=== PATIENT | female | born 1960 | race Two or more races ===

== ENCOUNTER → 2020-11-20 09:36 | Outpatient (REF) | payer OTHER, MEDICAID, SELFPAY ==
--- NOTE | 2020-11-20 09:39 | CA_ITS ---
Acquisition Time: 2020-11-20 09:51:51 Total Exercise Time: 00:07:27 Test Indications: CP Medications: SEE CHART Protocol: SHANTE Max HR: 139 BPM 86% of Pred: 160 BPM Max BP: 132/078 mmHG Max Work Load: 9.2 METS Exercise stress test using Shante protocol, total of 7 min 27 sec, METS 9.20 and TAPHR up to 86 %. Pt tolerated well, denies any anginal sx. EKG with no arrhythias, no ichemic changes seen during exercise or in recovery. Normotensive response to exercise. Referred By: Chris Huff Overread By: Alexandra Avila MANAGER RESPIRATORY CARE
[2020-11-20 12:06] LABS: MANUAL DIFF FLAG NO
[2020-11-20 12:14] LABS: Basophils Percent Auto 0.4 % (0-2); Eosinophils Absolute Auto 0.2 X10*3/uL (0.0-0.4); Eosinophils Percent Auto 3.4 % (0-4); Hematocrit 40.1 % (37-47); Hemoglobin 13.2 g/dl (12.0-16.0); Imm Gran Abs Auto 0.04 X10*3/uL (0.00-0.03); Imm Gran Pct Auto 0.9 % (0.0-0.4); Lymphocytes Absolute Auto 1.6 X10*3/uL (1.2-4.9); Lymphocytes Percent Auto 33.5 % (20-40); Mean Corpuscular HGB Conc 32.9 g/dl (31.0-35.0); Mean Corpuscular Hemoglobin 31.1 pg (27.0-33.0); Mean Corpuscular Volume 94.6 fL (80-98); Monocytes Absolute Auto 0.3 X10*3/uL (0.1-1.2); Monocytes Percent Auto 5.6 % (2-11); Neutrophils Absolute Auto 2.6 X10*3/uL (2.0-8.3); Neutrophils Percent Auto 56.2 % (45-73); Platelet Count 248 X10*3/uL (160-400); Red Blood Count 4.24 X10*6/uL (4.20-5.50); White Blood Count 4.7 X10*3/uL (4.8-10.8)
[2020-11-20 12:17] LABS: Prothrombin Time 11.4 SEC (10.8-13.0)
[2020-11-20 12:19] LABS: Partial Thromboplastin Time 32.1 SEC (24.1-38.0)
[2020-11-20 12:56] LABS: Troponin-I High Sensitivity < 3.5 ng/L (<3.5-17.0)
[2020-11-20 13:11] LABS: Glucose Urine UA NEG (NEG); Leukocyte Esterase Urine NEG (NEG); Nitrite Urine NEG (NEG); Specific Gravity - Urine >= 1.030 (1.005-1.025); Urine Blood NEG (NEG); Urine Ketones NEG (NEG); Urine Protein NEG (NEG-TRACE)
[2020-11-20 13:12] LABS: Appearance Urine HAZY; Color Urine YELLOW
[2020-11-20 13:14] LABS: Erythrocyte Sedimentation Rate 7 MM/HR (0-20)
[2020-11-20 13:16] LABS: Alanine Aminotransferase 29 U/L (0-31); Albumin Level 4.6 g/dL (3.5-5.0); Alkaline Phosphatase 49 U/L (39-117); Anion Gap 11 (12-20); Aspartate Amino Transferase 20 U/L (5-31); Bilirubin Direct < 0.2 mg/dL (0.0-0.5); Bilirubin Total 0.4 mg/dL (0.0-1.0); Blood Urea Nitrogen 16 mg/dL (9-16); C Reactive Protein 0.18 mg/dL (< or = 0.50); Calcium 9.4 mg/dL (8.4-10.2); Carbon Dioxide 27 mmol/L (22-29); Chloride 106 mmol/L (96-108); Cholesterol 191 mg/dL; Estimated Glomerular Filt Rate > 60; Glucose Fasting 90 mg/dL (60-99); HDL Cholesterol 48 mg/dL; LDL Cholesterol Calculated 117 mg/dl; Potassium 4.2 mmol/L (3.3-5.1); Sodium 140 mmol/L (135-145); Triglycerides 134 mg/dL
[2020-11-20 13:17] LABS: TSH reflex Free T4 1.61 uIU/mL (0.32-4.0)
[2020-11-21 13:36] LABS: Mumps Virus IgG Antibody >300.00 AU/mL; Rubella IgG Antibody 2.59 Index; Rubeola IgG (Measles) >300.00 AU/mL
[2020-11-23 16:27] LABS: TS Negative Control Passed; TS Panel A 0; TS Panel B 0; TS Positive Control Passed; TSpotTB Negative (SeeBelow)
== END ==
LOC: HO.CARD 09:36
PROVIDERS: Visit Provider Internal Medicine
DX: Z11.1 Encounter for screening for respiratory tuberculosis (principal); R07.9 Chest pain, unspecified; H11.32 Conjunctival hemorrhage, left eye; Z28.3 Underimmunization status
CPT/HCPCS: 36415; 80053; 80061; 80076; 81003; 82248; 84443; 84484; 85025; 85610; 85652; 85730; 86140; 86481; 86735; 86762; 86765; 93016; 93017; 93018

== ENCOUNTER 2021-04-23 11:37 | Day surgery (SDC) | payer OTHER, SELFPAY ==
--- NOTE | 2021-04-22 09:37 | HO.ANESPROP2 ---
Documented by User: Aniyah Porter NP 04/22/21 11:59 HPI - Anesthesia Eval Consult details Narrative: 60yo F for?Upper Endoscopy and Colonoscopy PMFSH Active Problems Active Problems: All Active Problems (Updated 11/17/20 @ 02:57 by Chris Huff MD) Anxiety and depression (Acute) Incomplete immunization status (Acute) Tuberculosis screening (Acute) Depression (Acute) Chest pain (Acute) Conjunctival hemorrhage of left eye (Acute) Insomnia (Acute) Chronic left ear pain (Acute) Allergic rhinitis (Acute) Cervical cancer screening (Acute) Left ear pain (Acute) Dizziness (Acute) Past Medical History Medical History ADD (attention deficit disorder) Allergic rhinitis Anxiety and depression Asthma Chest pain Chronic left ear pain Depression DJD (degenerative joint disease) GERD (gastroesophageal reflux disease) Evelyn's thyroiditis Incomplete immunization status Insomnia Iron (Fe) deficiency anemia Osteoporosis Tuberculosis screening Family History Family History Father Lung cancer Mother No problems noted. Sister No problems noted. Son No problems noted. Brother No problems noted. Surgical History Surgical History H/O abdominoplasty H/O breast augmentation History of laparoscopic cholecystectomy History of right breast biopsy History of surgery Hx of colonoscopy Hx of esophagogastroduodenoscopy Social History Social History Alcohol intake: never Patient Tobacco Use Status: Never used Tobacco Are you DNR?: No Advance Directives: No Advance Directives Information Provided: No Recently lost weight without trying: No Nutrition Risks: No Nutritional Risk Meds Allergies Allergy/AdvReac Type Severity Reaction Status Date / Time codeine Allergy Unknown Unknown Verified 11/16/20 15:09 penicillin V Allergy Unknown hives Verified 11/16/20 15:09 Sulfa (Sulfonamide Allergy Unknown hives Verified 11/16/20 15:09 Antibiotics) (Sulfa), hives sulfacetamide Allergy Unknown Hives Verified 11/16/20 15:09 [From Sulfacet-R] sulfur [From Sulfacet-R] Allergy Unknown Hives Verified 11/16/20 15:09 frutose, galatose, synthetic Allergy Unknown nausea and Uncoded 11/16/20 15:09 s vomiting Home Medications Medication Instructions Recorded Confirmed Last Taken Type diazepam 5 mg tablet 5 mg PO BEDTIME PRN 07/21/20 08/21/20 Unknown History fluoride (sodium) 1.1 % dental appl PO BID 07/21/20 08/21/20 Unknown History cream levalbuterol tartrate 45 1 puff INHALATION Q4H PRN 07/21/20 08/21/20 Unknown History mcg/actuation aerosol inhaler levothyroxine 50 mcg tablet 50 mcg PO QAM 07/21/20 08/21/20 Unknown History dicyclomine 20 mg tablet 20 mg PO ONCE tab 08/21/20 08/21/20 Unknown History fexofenadine 180 mg tablet 180 mg PO DAILY 08/21/20 08/21/20 Unknown History (Lynne Allergy) pantoprazole 40 mg tablet,delayed 40 mg PO DAILY 08/21/20 08/21/20 Unknown History release triamcinolone acetonide 0.1 % TOPICAL BID 08/21/20 08/21/20 Unknown History topical ointment levocetirizine 5 mg tablet 5 mg PO DAILY 11/16/20 11/16/20 Unknown History Exam Exam Date and Time: April 22, 2021 0937 Pertinent Lab Results Pertinent Lab Results: Laboratory Tests 11/20/20 11/20/20 11:25 11:25 WBC 4.7 L Hgb 13.2 Hct 40.1 Plt Count 248 Sodium 140 Potassium 4.2 Chloride 106 Carbon Dioxide 27 BUN 16 Creatinine 0.76 Narrative Narrative: Exercise Stress 10/2020 Protocol: SAEID ? Max HR: 139 BPM? 86% of? Pred: 160 BPM Max BP: 132/078 mmHG Max Work Load: 9.2 METS ? Exercise stress test using Saeid protocol, total of 7 min 27 sec, METS 9.20 and ?TAPHR up to 86 %.? Pt tolerated well, denies any anginal sx.? EKG with no ?arrhythias,? no ichemic changes seen during exercise or in recovery. ?Normotensive response to exercise.? ? Assessment and Plan Assessment Anesthesia Assessment: Chart Reviewed Documented by User: Donya Bean MD 04/23/21 13:27 [facility] Active Problems Active Problems: All Active Problems (Updated 11/17/20 @ 02:57 by Chris Huff MD) Anxiety and depression (Acute) Incomplete immunization status (Acute) Tuberculosis screening (Acute) Depression (Acute) Chest pain (Acute) Conjunctival hemorrhage of left eye (Acute) Insomnia (Acute) Chronic left ear pain (Acute) Allergic rhinitis (Acute) Cervical cancer screening (Acute) Left ear pain (Acute) Dizziness (Acute) C/o headache- coffee drinker, probably dehydrated. Will rehydrate, observe in PACU Past Medical History Medical History ADD (attention deficit disorder) Allergic rhinitis Anxiety and depression Asthma Chest pain Chronic left ear pain Depression DJD (degenerative joint disease) GERD (gastroesophageal reflux disease) Evelyn's thyroiditis Incomplete immunization status Insomnia Iron (Fe) deficiency anemia Osteoporosis Tuberculosis screening Family History Family History Father Lung cancer Mother No problems noted. Sister No problems noted. Son No problems noted. Brother No problems noted. Family history of problems with anesthesia: No Surgical History Surgical History H/O abdominoplasty H/O breast augmentation History of laparoscopic cholecystectomy History of right breast biopsy History of surgery Hx of colonoscopy Hx of esophagogastroduodenoscopy History of Problems with Anesthesia: No Social History Social History Alcohol intake: never Patient Tobacco Use Status: Never used Tobacco Are you DNR?: No Advance Directives: No Advance Directives Information Provided: No Recently lost weight without trying: No Nutrition Risks: No Nutritional Risk Meds Allergies Allergy/AdvReac Type Severity Reaction Status Date / Time codeine Allergy Unknown Unknown Verified 11/16/20 15:09 penicillin V Allergy Unknown hives Verified 11/16/20 15:09 Sulfa (Sulfonamide Allergy Unknown hives Verified 11/16/20 15:09 Antibiotics) (Sulfa), hives sulfacetamide Allergy Unknown Hives Verified 11/16/20 15:09 [From Sulfacet-R] sulfur [From Sulfacet-R] Allergy Unknown Hives Verified 11/16/20 15:09 frutose, galatose, synthetic Allergy Unknown nausea and Uncoded 11/16/20 15:09 s vomiting Home Medications Medication Instructions Recorded Confirmed Last Taken Type diazepam 5 mg tablet 5 mg PO BEDTIME PRN 07/21/20 08/21/20 Unknown History fluoride (sodium) 1.1 % dental appl PO BID 07/21/20 08/21/20 Unknown History cream levalbuterol tartrate 45 1 puff INHALATION Q4H PRN 07/21/20 08/21/20 Unknown History mcg/actuation aerosol inhaler levothyroxine 50 mcg tablet 50 mcg PO QAM 07/21/20 08/21/20 Unknown History dicyclomine 20 mg tablet 20 mg PO ONCE tab 08/21/20 08/21/20 Unknown History fexofenadine 180 mg tablet 180 mg PO DAILY 08/21/20 08/21/20 Unknown History (Lynne Allergy) pantoprazole 40 mg tablet,delayed 40 mg PO DAILY 08/21/20 08/21/20 Unknown History release triamcinolone acetonide 0.1 % TOPICAL BID 08/21/20 08/21/20 Unknown History topical ointment levocetirizine 5 mg tablet 5 mg PO DAILY 11/16/20 11/16/20 Unknown History Exam Height,Weight and Vital Signs: Height 5 ft 3 in Weight 63.63 kg Vital Signs Temp Pulse Resp BP Pulse Ox 04/23/21 12:18 98.6 F 81 18 109/64 96 Airway Mallampati Class: III (Small mouth opening) TM Dist: >3cm Neck ROM: Full Loose/Missing/Broken Teeth: No Heart: RRR Lungs: CTAB Assessment and Plan Assessment Anesthesia Assessment: Anesthesia Plan Discussed Final Anesthetic Review Family History of Problems with Anesthesia: No History of Problems with Anesthesia: No NPO: Yes ASA Class: II Final Preanesthetic Review: No Changes in Pt Med Stat, Meds/Allgs Chart Reviewed, Consent Obtained/Reviewed and Anes Risks/Benef Reviewed Patient Risk: Low Procedure Risk: Low Assessment/Block/Sedation in SS: Assess/Block/Sedation-SS Anesthetic Plan Anesthetic Plan: MAC: Disposition: Standard PACU
[2021-04-23 12:18] VITALS: BP 109/64; PULSE 81; RESP 18; TEMP 37; O2SAT 96; BMI 24.8
[2021-04-23] MEDS: Lactated Ringers 1,000 ML 100 ML IVCONT (12:26)
--- NOTE | 2021-04-23 12:41 | MHC.SHP ---
Pre-Procedural Eval Section A Date of Service: 04/23/21 The patient is an INPATIENT: No Changes since office visit: No Cold of Flu in the past 2 weeks, No New Medical Problems, No Changes in Medication and No Patient answered all questions The History & Physical has been completed within 30 days and I have reviewed it.: Yes Section B Chief Complaint: reflux disease,screening,constipation Allergies: Allergies Allergy/AdvReac Type Severity Reaction Status Date / Time codeine Allergy Unknown Unknown Verified 11/16/20 15:09 penicillin V Allergy Unknown hives Verified 11/16/20 15:09 Sulfa (Sulfonamide Allergy Unknown hives Verified 11/16/20 15:09 Antibiotics) (Sulfa), hives sulfacetamide Allergy Unknown Hives Verified 11/16/20 15:09 [From Sulfacet-R] sulfur [From Sulfacet-R] Allergy Unknown Hives Verified 11/16/20 15:09 frutose, galatose, synthetic Allergy Unknown nausea and Uncoded 11/16/20 15:09 s vomiting Plan I have reviewed the history and physical and performed a pertinent physical examination on my patient. No changes have occurred unless specified.
--- NOTE | 2021-04-23 13:20 | P.BOP_ITS ---
Brief Operative Note Date of Service: 04/23/21 Pre-op diagnosis: gerd,screening Post-op diagnosis: same Procedure: egd,colon Surgeon: Troy Francis Anesthesia: MAC Was an Platform Software Engineer used for this Procedure?: No Estimated blood loss (mL): 5 Pathology: other (see nurse notes) Condition: stable Disposition: PACU
[2021-04-23 13:22] VITALS: BP 84/49; PULSE 66; RESP 20; TEMP 36.3; O2SAT 98
[2021-04-23 13:40] VITALS: BP 126/78; PULSE 70; RESP 16; TEMP 36.3; O2SAT 96
--- NOTE | 2021-04-23 13:40 | OP_ITS ---
SURGEON: Troy Francis MD INDICATIONS: Gastroesophageal reflux disease, constipation, and colon cancer screening. PREOPERATIVE DIAGNOSIS: POSTOPERATIVE DIAGNOSIS: PROCEDURE PERFORMED: Upper endoscopy with biopsy, colonoscopy to the terminal ileum with biopsy. ESTIMATED BLOOD LOSS: COMPLICATIONS: ANESTHESIA: ASSISTANTS: SPECIMENS: MEDICATIONS: Monitored anesthesia care. DESCRIPTION OF PROCEDURE: History and physical performed. The risks and benefits of the procedure were explained to the patient. Informed consent was obtained. The patient was placed in the left lateral decubitus position. A digital rectal exam was performed prior to the colonoscopy was normal. The Olympus video gastroscope was introduced into the esophagus, stomach, and duodenum. Examination was performed and the scope was removed. She was repositioned for colonoscopy. Digital rectal exam was performed and was found to be normal. The Olympus pediatric video colonoscope was introduced into the rectum and advanced to the cecum without difficulty. The cecum was identified by transillumination, palpation, and identification of the ileocecal valve. Examination was performed and the scope was removed. She tolerated both procedures well and was taken to recovery area in stable condition. FINDINGS: UPPER ENDOSCOPY: Esophagus: The esophagus was normal. Stomach: The stomach was normal. Duodenum: The bulb and second portion were normal. Biopsies were obtained from the EG junction, antrum, and duodenum. COLONOSCOPY: The terminal ileum was normal. Visualized colonic mucosa was normal. The quality of the prep was good. In the cecum, was a less than 5 mm sessile polyp, which was removed with biopsy forceps. Biopsies were obtained from the terminal ileum and sigmoid. Retroflexed examination showed small internal hemorrhoids. IMPRESSION: 1. Normal upper endoscopy. 2. Colon polyp. RECOMMENDATION: Follow up the biopsy results. MD CASPER Gonzalez/POLA / [id number]
[2021-04-23] MEDS: Acetaminophen 325 MG TABLET 650 MG PO (13:57)
== END 2021-04-23 14:21 | disposition home or self-care (01) ==
PROVIDERS: PCP Nurse Practitioner Family; Visit Provider Internal Medicine Gastroenterology
PROC: (CPT 45380; principal; 2021-04-23 12:40)
DX: Z12.11 Encounter for screening for malignant neoplasm of colon (principal); D12.0 Benign neoplasm of cecum; K59.00 Constipation, unspecified; K64.8 Other hemorrhoids; K21.9 Gastro-esophageal reflux disease without esophagitis; J45.909 Unspecified asthma, uncomplicated; D50.9 Iron deficiency anemia, unspecified; E06.3 Autoimmune thyroiditis; M81.0 Age-related osteoporosis without current pathological fracture; M50.30 Other cervical disc degeneration, unspecified cervical region; Z79.899 Other long term (current) drug therapy; Z88.0 Allergy status to penicillin; Z88.2 Allergy status to sulfonamides
CPT/HCPCS: 45380; 43239; 88305; 88342

== ENCOUNTER 2021-06-15 17:53 | Outpatient (REF) | payer OTHER, SELFPAY ==
[2021-06-15 17:59] LABS: Appearance Urine CLEAR; Color Urine YELLOW; Glucose Urine UA NEG (NEG); Leukocyte Esterase Urine NEG (NEG); Nitrite Urine NEG (NEG); PH 5.5 (5.0-8.0); Urine Blood NEG (NEG); Urine Ketones NEG (NEG); Urine Protein NEG (NEG-TRACE)
== END 2021-06-15 17:54 | disposition home or self-care (01) ==
LOC: HO.LNP 17:53
PROVIDERS: Visit Provider Nurse Practitioner Acute Care
DX: R35.0 Frequency of micturition (principal)
CPT/HCPCS: 81003

== ENCOUNTER 2022-03-28 17:04 | Outpatient (REF) | payer BC, OTHER, SELFPAY ==
--- NOTE | ~2022-03-28 | XR_ITS ---
EXAMINATION: XR CERVICAL SPINE CLINICAL INFORMATION: Pain COMPARISON: Previous x-ray May 2012 TECHNIQUE: 3 views of the cervical spine were obtained. FINDINGS: There is mild curvature of the lower cervical and upper thoracic spine to the left. Bone alignment is otherwise normal. No fracture or dislocation is seen. There is degenerative spondylosis and degenerative disc disease at C6-C7. Prevertebral soft tissues are normal. XR/XR cervical spine 3V IMPRESSION: Degenerative changes at C6-C7.
--- NOTE | ~2022-03-28 | XR_ITS ---
EXAMINATION: XR LUMBOSACRAL SPINE CLINICAL INFORMATION: Pain COMPARISON: Previous exam from 2013 TECHNIQUE: Three views of the lumbosacral spine. FINDINGS: Bone alignment is normal. No fracture or dislocation is seen. There is disc space narrowing at L5-S1. There is lower lumbar spine facet arthritis. XR/XR lumbar spine 2-3V IMPRESSION: Degenerative disc disease at L5-S1 and lower lumbar spine facet arthritis.
--- NOTE | ~2022-03-28 | XR_ITS ---
EXAMINATION: XR KNEE, LEFT CLINICAL INFORMATION: Pain COMPARISON: None TECHNIQUE: Four views of the left knee. FINDINGS: Bones and soft tissues are normal. No fracture or joint effusion. Alignment is anatomic. Joint spaces are well maintained. No abnormal soft tissue calcification. XR/XR knee LT 3V IMPRESSION: Normal left knee.
[2022-03-28 17:16] LABS: MANUAL DIFF FLAG NO
[2022-03-28 17:41] LABS: Basophils Percent Auto 0.4 % (0-2); Eosinophils Percent Auto 0.8 % (0-4); Hemoglobin 13.3 g/dl (12.0-16.0); Imm Gran Abs Auto 0.03 X10*3/uL (0.00-0.03); Imm Gran Pct Auto 0.6 % (0.0-0.4); Lymphocytes Absolute Auto 1.8 X10*3/uL (1.2-4.9); Lymphocytes Percent Auto 35.2 % (20-40); Mean Corpuscular HGB Conc 33.3 g/dl (31.0-35.0); Mean Corpuscular Hemoglobin 31.4 pg (27.0-33.0); Mean Corpuscular Volume 94.3 fL (80.0-98.0); Mean Platelet Volume 9.8 fL (9.4-12.3); Monocytes Absolute Auto 0.3 X10*3/uL (0.1-1.2); Monocytes Percent Auto 6.3 % (2-11); Neutrophils Absolute Auto 2.9 x10*3/uL (2.0-8.3); Neutrophils Percent Auto 56.7 % (45-73); Platelet Count 307 X10*3/uL (160-400); Red Blood Count 4.24 X10*6/uL (4.20-5.50); Red Cell Distribution Width 12.1 % (11.0-16.0); White Blood Count 5.1 X10*3/uL (4.8-10.8)
[2022-03-28 18:05] LABS: C Reactive Protein 0.15 mg/dL (< or = 0.50); Estimated Glomerular Filt Rate > 60
[2022-03-28 18:14] LABS: Rheumatoid Factor 62.3 IU/mL (<15.0)
[2022-03-28 18:29] LABS: Erythrocyte Sedimentation Rate 11 MM/HR (0-20)
[2022-03-30 18:21] LABS: Anti Nuclear Antibody Screen NEGATIVE (NEGATIVE)
== END 2022-03-28 17:05 | disposition home or self-care (01) ==
LOC: HO.LAB 17:04
PROVIDERS: PCP Internal Medicine; Visit Provider Internal Medicine Rheumatology
DX: M79.7 Fibromyalgia (principal); M79.606 Pain in leg, unspecified; G43.909 Migraine, unspecified, not intractable, without status migrainosus; Z79.899 Other long term (current) drug therapy
CPT/HCPCS: 36415; 72040; 72100; 73562; 82565; 85025; 85652; 86038; 86039; 86140; 86431; 99202

== ENCOUNTER → 2022-08-24 09:52 | Outpatient (BNVA) | payer BC, OTHER, SELFPAY | PROVIDERS: PCP Internal Medicine; Visit Provider Internal Medicine Rheumatology | DX: R76.8 Other specified abnormal immunological findings in serum (principal); M47.812 Spondylosis without myelopathy or radiculopathy, cervical region; M47.816 Spondylosis without myelopathy or radiculopathy, lumbar region; M79.7 Fibromyalgia | CPT/HCPCS: 99212 ==

== ENCOUNTER 2022-09-15 11:28 | Outpatient (REF) | payer MEDICAID, SELFPAY ==
--- NOTE | 2022-09-15 11:30 | EMG_ITS ---
Bilateral tibial and peroneal motor studies were performed. Bilateral superficial peroneal and sural sensory studies were performed. Tibial H reflexes were obtained and paraspinal muscles were tested with a needle. IMPRESSION: Mild to moderate sensory peripheral neuropathy. Motor nerves were intact. MD KELVIN Madden/POLA / [id number]
== END 2022-09-15 11:29 | disposition home or self-care (01) ==
LOC: HO.NEURO 11:28
PROVIDERS: PCP Internal Medicine; Visit Provider Internal Medicine
DX: R20.8 Other disturbances of skin sensation (principal)
CPT/HCPCS: 95886; 95913

== ENCOUNTER 2022-10-19 15:30 | Outpatient (REF) | payer BC, OTHER, SELFPAY ==
[2022-10-21 16:49] LABS: TS Negative Control Passed; TS Panel A 0; TS Panel B 0; TS Positive Control Passed; TSpotTB Negative (Negative)
== END 2022-10-19 15:31 | disposition home or self-care (01) ==
LOC: HO.LAB 15:30
PROVIDERS: PCP Internal Medicine; Visit Provider Internal Medicine
DX: Z11.1 Encounter for screening for respiratory tuberculosis (principal)
CPT/HCPCS: 36415; 86481

== ENCOUNTER 2023-03-01 14:19 | Outpatient (AMB) | payer BC, MEDICAID, SELFPAY ==
[2023-03-01 14:27] VITALS: BP 122/84; PULSE 75; O2SAT 96; BMI 26.7
--- NOTE | 2023-03-01 14:27 | MHC.PC.OV ---
Vital Signs 03/01/23 14:27 Height 5 ft 2 in Weight 146 lb 4 oz BMI 26.7 BP 122/84 Blood Pressure Location Lt brachial Position Sitting Pulse 75 Pulse Source Pulse Oximeter Pulse Oximetry (%) 96 Oxygen Delivery Method Room Air Intake Visit Reasons: Brittany Costello, Back pain Varnish Filterer Required: No Accompanied by: Self / Same As Patient Allergies codeine Allergy (Unknown, Verified 03/01/23 15:28) Unknown Sulfa (Sulfonamide Antibiotics) Allergy (Unknown, Verified 03/01/23 15:28) hives (Sulfa), hives sulfacetamide [From Sulfacet-R] Allergy (Unknown, Verified 03/01/23 15:28) Hives sulfur [From Sulfacet-R] Allergy (Unknown, Verified 03/01/23 15:28) Hives frutose, galatose, synthetic s Allergy (Unknown, Uncoded 03/01/23 15:28) nausea and vomiting Medication List - Last Reconciled 03/01/23 by MD Kristal Whittington Autoinjector (fremanezumab-vfrm) 225 mg (1.5 mL) subcut .Once a month 3 months NS albuterol sulfate 90 mcg/actuation (ProAir HFA) 1 inh inhalation .Q 4 hours PRN beclomethasone dipropionate 80 mcg/actuation (QNASL) 2 sprays intranasal DAILY PRN 30 days beclomethasone dipropionate 80 mcg/actuation (Qvar RediHaler) 1 inh inhalation BID buspirone 5 mg PO BID 30 days Concerta ER (methylphenidate HCl) 36 mg PO QAM 30 days NS epinephrine IM fenofibrate nanocrystallized 48 mg PO DAILY 90 days fexofenadine ([facility]ne [facility]) 180 mg PO DAILY fluconazole 150 mg PO QWEEK 90 days fluocinolone-hydroq.-tretinoin 0.01-4-0.05 % (Tri-Elizabeth) 1 appl topical .QD fluoride (sodium) 1.1% appl PO BID glycopyrronium tosylate 2.4% (Qbrexza) 1 appl topical DAILY 30 days ibuprofen 800 mg PO DAILY PRN ketoconazole 2% 1 appl topical 2XW PRN levothyroxine 75 mcg PO DAILY linaclotide (Linzess) 290 mcg PO DAILY lorazepam 1 mg PO BEDTIME PRN 30 days pantoprazole 40 mg PO BID PRN pregabalin 50 mg PO BID 30 days riboflavin (vitamin B2) 100 mg PO DAILY 90 days simethicone (Gas Relief (simethicone)) 125 mg PO TID-QID PRN trazodone 300 mg (3 x 100 mg) PO BEDTIME PRN 90 days triamcinolone acetonide 0.1% topical BID venlafaxine ER 37.5 mg PO BEDTIME 30 days zolpidem 10 mg PO BEDTIME PRN 30 days Tobacco use date assessed: 03/01/23 Dental Screening Dental Screen Date: 03/01/23 Did you have a dental visit in the last 12 months?: Yes Did you have a dental problem in the last 6 months where you did not have access to dental care?: No Was dental information given to patient?: Patient has dentist HPI [facility], Back pain HPI Details Patient comes in today for her HDF follow up visit - she went to the ER at [facility] last month for back pain As usual, she has multiple complaints to discuss again even though her visit today is supposed to be just an HDF appt for her back pain and recent ER visit States that she has been experiencing increased pain over her upper back in between her shoulder blades for over a month now Recall that the back pain started all of a sudden last month and she denies any recent injury or trauma to her upper back She reportedly had some workups done in the ER at [facility] last month, including labs and CT scan, all of which came back normal She was discharged home and instructed to follow-up with her PCP [facility] if her symptoms continue States that her upper back pain has persisted since and she feels is getting worse lately - notes that the pain increases now with activity and with deep breathing although she denies any SOB Still has on and off headaches; denies any dizziness Denies any exertional chest pains No nausea/vomiting, no abdominal pain No change in bowel habits noted She also continues to experience frequent burning sensation on urinatlon, which she states is only temporary relieved when she takes some antibiotics for presumed UTI Would like to see Urology for her recurrent symptoms - recall seeing Urology in [place] in the past but has not been back to see them in a while Would also like to be started back on Bupropion for her increasing anxiety Admits that she stopped taking her Buspirone a while back as she felt that it was not really helping much [facility] Medical History Acquired hypothyroidism ADD (attention deficit disorder) Allergic rhinitis Anxiety Anxiety and depression Asthma Chest pain Chronic left ear pain Depression DJD (degenerative joint disease) GERD (gastroesophageal reflux disease) Evelyn's thyroiditis Insomnia Iron (Fe) deficiency anemia Irritable bowel syndrome with constipation Migraine Mixed hyperlipidemia Osteoporosis Overweight (BMI 25.0-29.9) Peripheral neuropathy Surgical History H/O abdominoplasty H/O breast augmentation History of laparoscopic cholecystectomy History of right breast biopsy History of surgery Hx of colonoscopy Hx of esophagogastroduodenoscopy Family History Father Lung cancer Mother No problems noted. Sister No problems noted. Son No problems noted. Brother No problems noted. Social History Housing: House Alcohol intake: never Patient Tobacco Use Status: Never used Tobacco e-Cigarette/Vaping Use: Never Used Second Hand Smoke Exposure: No service: No Current occupational status: employed Cognitive needs: No Hearing needs: No Vision needs: Yes Questionnaire PHQ-9 Over the last 2 weeks, how often have you been bothered by any of the following problems? 1. Little interest or pleasure in doing things: not at all 2. Feeling down, depressed, or hopeless: not at all 3. Trouble falling or staying asleep, or sleeping too much: not at all 4. Feeling tired or having little energy: not at all 5. Poor appetite or overeating: not at all 6. Feeling bad about yourself - or that you are a failure or have let yourself or your family down: not at all 7. Trouble concentrating on things, such as reading the newspaper or watching television: several days 8. Moving or speaking so slowly that other people could have noticed. Or the opposite - being so fidgety or restless that you have been moving around a lot more than usual: not at all 9. Thoughts that you would be better off or of hurting yourself in some way: not at all Total score: 1 Depression Screening Interpretation: Positive Depression Screening Follow-up: Existing condition, In treatment and New Medication prescribed 46363 - PHQ-9 Billing: Yes Source: Developed by Drs. Otilio Sanchez, Zena Almeida, Ray Shen and colleagues, with an educational lyudmila from [employer] Thrive Questionnaire Date Thrive assessed: 03/01/23 I am a: Patient What is your living situation today?: I have a steady place to live Within the past 12 months, did the food you bought not last and you didn't have the money to get more?: Never true Within the past 12 months, did you worry whether your food would run out before you got money to buy more?: Never true Do you have trouble paying for medicines?: No Do you have trouble getting transportation to medical appointments?: No Do you have trouble paying your heating and electricity bill?: No Do you have trouble taking care of your child, family member or friend?: No Do you have trouble with day-to-day activities such as bathing, preparing meals, shopping, managing finances, etc.?: No Are you currently unemployed and looking for a job?: No Are you interested in more education?: No Please select the resources that you would like help with: None Currently or been in a relationship where the following occur: no concerns reported AUDIT C Alcohol Use Questionnaire (AUDIT-C) 1. How often do you have a drink containing alcohol?: Never 3. How often do you have six or more drinks on one occasion?: Never Total Score: 0 Score Reviewed/Action Taken: Yes KARON-7 AMB Questionnaire KARON-7 Date KARON - 7 assessed: 03/01/23 Feeling nervous, anxious, or on edge: 1 = Several days Not being able to stop or control worryin = Several days Worrying too much about different things: 1 = Several days Trouble relaxin = Several days Being so restless that it is hard to sit still: 1 = Several days Becoming easily annoyed or irritable: 1 = Several days Feeling afraid as if something awful might happen: 0 = Not at all Total KARON-7 score (0-4 normal; 5-9 mild; 10-14 moderate; 15-21 severe): 6 Source: Developed by Drs. Otilio Sanchez, Zena Almeida, Ray Shen and colleagues, with an educational lyudmila from [employer] Review of Systems Const Denies chills, Reports fatigue (chronic), Denies fever(s) and Reports headache(s) (on and off) ENT Denies dysphagia, Denies dizziness, Denies ear discharge, Denies otalgia, Reports headache(s) (on and off), Reports neck pain (chronic), Denies odynophagia and Denies sore throat Card Denies chest pain, Denies rapid heart rate, Denies irregular heart rhythm, Denies palpitations and Denies dyspnea Resp Denies chest congestion, Denies cough, Denies dyspnea and Denies wheezing GI Denies abdominal pain, Denies bloating, Denies constipation, Denies dysphagia, Denies heartburn, Denies diarrhea, Denies nausea, Denies odynophagia and Denies vomiting Denies hematuria, Denies urinary frequency, Reports dysuria (mild), Denies urinary incontinence and Denies urinary urgency Musc Reports back pain (especially over her upper back lately, in between her shoulder blades), Reports myalgias, Reports arthralgias (involving multiple joints), Denies joint swelling, Denies muscle weakness and Reports neck pain (chronic) Neuro Denies dizziness, Reports headache(s) (on and off) and Denies paresthesias Psych Reports anxiety (increasing) and Reports depression Endo Reports fatigue (chronic) and Denies palpitations Josh/Lymph Denies easy bruising Aller/Immun Denies wheezing Physical exam (Primary Care) Vital Signs: Last Vital Signs Pulse 75 03/01/23 14:27 BP 122/84 03/01/23 14:27 Pulse Ox 96 03/01/23 14:27 Oxygen Delivery Method Room Air 03/01/23 14:27 BMI result Body Mass Index 26.7 Tobacco/Smoking Status: Tobacco use Status Tobacco use date assessed 03/01/23 03/01/23 14:33 Patient Tobacco Use Status Never used Tobacco 03/01/23 14:33 e-Cigarette/Vaping Use Never Used 03/01/23 14:33 PHQ-9: PHQ-9 Score PHQ-9: Total score 1 03/01/23 16:09 Depression Screening Interpretation: Positive Depression Screening Follow-up: Existing condition, In treatment and New Medication prescribed Thrive Assessment: Date of Thrive Assessment Date Thrive assessed 03/01/23 03/01/23 14:33 Currently or been in a relationship where the following occur: no concerns reported Const General: no acute distress and alert HENMT Ears: TM's normal bilaterally and EAC's normal Throat: Yes posterior oropharynx normal and Yes tonsils normal (no TP congestion) Neck Neck: Yes no lymphadenopathy and Yes supple Thyroid: Thyroid normal Resp Auscultation: clear to auscultation bilaterally, no rales and no wheezes Cardio Rate: regular rate Rhythm: regular rhythm Heart sounds: no murmurs GI Palpation (GI): Soft to palpation and nontender Auscultation: normal bowel sounds General: Yes no CVA tenderness Back/Spine/Pelvis Other: (+) tenderness over the midthoracic spine along the interscapular area Back: no CVA tenderness Cervical Spine: Cervical spine tenderness Thoracic/Lumbar Spine: lumbar spinal tenderness Extrem General: Yes no clubbing, cyanosis or edema Assessment and Plan Assessment & Plan (1) Back pain: Code(s): M54.9 - Dorsalgia, unspecified Qualifiers: Back pain location: thoracic back pain Chronicity: acute Back pain laterality: midline Qualified Code(s): M54.6 - Pain in thoracic spine Plan: Will send for chest x-rays and x-rays of the thoracic spine for further evaluation Will start her on Baclofen 10 mg BID PRN for her back pain in the meantime (2) Dysuria: Code(s): R30.0 - Dysuria Plan: Her recent urinalysis is normal Due to her frequent dysuria (and per patient request), will refer her to urology for further evaluation and management (3) Peripheral neuropathy: Code(s): G62.9 - Polyneuropathy, unspecified Qualifiers: Peripheral neuropathy type: polyneuropathy, unspecified Qualified Code(s): G62.9 - Polyneuropathy, unspecified Plan: EMG and NCV done a few months ago revealed (+) mild to moderate peripheral sensory neuropathy Continue Pregabalin 50 mg TID Patient has been tried on Gabapentin last year but states that she could not tolerate the medication because of dizziness (4) Asthma: Code(s): J45.909 - Unspecified asthma, uncomplicated Qualifiers: Asthma severity: mild Asthma persistence: persistent Asthma complication type: uncomplicated Qualified Code(s): J45.30 - Mild persistent asthma, uncomplicated Plan: Stable lately Continue Qvar Redihaler 80 mcg 1 inhalation BID and Albuterol HFA 2 inhalations every 6 hours as needed - patient requested to be switched back to Qvar from Flovent HFA at a previous visit last year (5) Allergic rhinitis: Code(s): J30.9 - Allergic rhinitis, unspecified Qualifiers: Allergic rhinitis trigger: unspecified Allergic rhinitis seasonality: unspecified Qualified Code(s): J30.9 - Allergic rhinitis, unspecified Plan: Follow up with button maker and installer at [facility] for her allergies as scheduled Continue Fexofenadine 180 mg QD PRN (6) Acquired hypothyroidism: Code(s): E03.9 - Hypothyroidism, unspecified Plan: Has Evelyn's thyroiditis and is now seeing Dr. Carlton for endocrinology follow up regularly Continue Levothyroxine 75 mcg QD (7) Osteoporosis: Code(s): M81.0 - Age-related osteoporosis without current pathological fracture Qualifiers: Osteoporosis type: age-related Presence of current pathological fracture: without current pathological fracture Qualified Code(s): M81.0 - Age-related osteoporosis without current pathological fracture Plan: Continue Prolia injections every 6 months Follow up with endocrinology as scheduled - is now seeing Dr. Carlton at [facility] (8) Irritable bowel syndrome with constipation: Code(s): K58.1 - Irritable bowel syndrome with constipation Plan: Reinforced increased oral fluids and dietary fiber Continue Dicyclomine PRN Has been tried on multiple medications in the past for her constipation with limited relief, including Linzess and Trulance Is now seeing GI out of [facility] via telehealth and is on Amitiza 8 mcg BID (9) Insomnia: Code(s): G47.00 - Insomnia, unspecified Qualifiers: Insomnia type: unspecified Qualified Code(s): G47.00 - Insomnia, unspecified Plan: Sleep hygiene reinforced Currently takes Trazodone 300 mg Q HS PRN (10) ADD (attention deficit disorder): Code(s): F98.8 - Other specified behavioral and emotional disorders with onset usually occurring in childhood and adolescence Qualifiers: Hyperactivity presence: unspecified Qualified Code(s): F98.8 - Other specified behavioral and emotional disorders with onset usually occurring in childhood and adolescence Plan: Continue Concerta ER 36 mg QD (11) Anxiety: Code(s): F41.9 - Anxiety disorder, unspecified Plan: Continue Lorazepam 1 mg Q HS PRN Was also on Buspirone 5 mg BID previously but patient stop taking Rx a while back as she felt that it was not helping Per her request, will start her additionally on Bupropion XL 150 mg QD (12) Depression: Comment: most likely has bipolar depression Code(s): F32.9 - Major depressive disorder, single episode, unspecified Qualifiers: Depression Type: major depressive disorder Major depression recurrence: recurrent Active/Remission status: currently active Major depression episode severity: unspecified Qualified Code(s): F33.9 - Major depressive disorder, recurrent, unspecified Plan: Continue Venlafaxine 37.5 mg QD Follow up with psychiary as scheduled (13) Overweight (BMI 25.0-29.9): Code(s): E66.3 - Overweight Plan: Reinforced diet/exercise as tolerated/lose weight Patient wanted to try Qsymia previously but insurance would not cover Rx She would also not be a good candidate for Phentermine as she is on Concerta for her ADD Plan Follow up as scheduled in April 2023 Orders: Orders XR thoracic spine 3V 03/01/23 M54.9 - Dorsalgia, unspecified XR chest 2V 03/01/23 R07.9 - Chest pain, unspecified Referrals Urology Referral R30.0 - Dysuria Medications: New baclofen 10 mg PO BID PRN 60 tabs 1RF muscle spasm bupropion HCl 150 mg PO QAM 30 days 30 tabs 3RF Discontinued buspirone Discontinued Reason: Patient no longer taking 5 mg PO BID 30 days 60 tabs 2RF F32.9 - Major depressive disorder, single episode, unspecified, F41.9 - Anxiety disorder, unspecified Coding Level of Care Code Est Pt Level 4 (91089) Diagnoses Back pain M54.6 Back pain location: thoracic back pain Chronicity: acute Back pain laterality: midline Dysuria R30.0 Peripheral neuropathy G62.9 Peripheral neuropathy type: polyneuropathy, unspecified Asthma J45.30 Asthma severity: mild Asthma persistence: persistent Asthma complication type: uncomplicated Allergic rhinitis J30.9 Allergic rhinitis trigger: unspecified Allergic rhinitis seasonality: unspecified Acquired hypothyroidism E03.9 Osteoporosis M81.0 Osteoporosis type: age-related Presence of current pathological fracture: without current pathological fracture Irritable bowel syndrome with constipation K58.1 Insomnia G47.00 Insomnia type: unspecified ADD (attention deficit disorder) F98.8 Hyperactivity presence: unspecified Anxiety F41.9 Depression F33.9 Depression Type: major depressive disorder Major depression recurrence: recurrent Active/Remission status: currently active Major depression episode severity: unspecified Overweight (BMI 25.0-29.9) E66.3
== END 2023-03-01 15:43 | disposition home or self-care (01) ==
PROVIDERS: PCP Internal Medicine; Visit Provider Internal Medicine
DX: J45.30 Mild persistent asthma, uncomplicated (principal); E03.9 Hypothyroidism, unspecified; K58.1 Irritable bowel syndrome with constipation; F41.9 Anxiety disorder, unspecified; F33.9 Major depressive disorder, recurrent, unspecified; M54.6 Pain in thoracic spine; R30.0 Dysuria; G62.9 Polyneuropathy, unspecified; J30.9 Allergic rhinitis, unspecified; M81.0 Age-related osteoporosis without current pathological fracture; G47.00 Insomnia, unspecified; F98.8 Other specified behavioral and emotional disorders with onset usually occurring in childhood and adolescence
CPT/HCPCS: 99214

== ENCOUNTER 2023-03-01 15:51 | Outpatient (REF) | payer BC, MEDICAID, SELFPAY | END 2023-03-01 15:52 | disposition home or self-care (01) | LOC: HO.XRAY 15:51 | PROVIDERS: PCP Internal Medicine; Visit Provider Internal Medicine | DX: Z13.89 Encounter for screening for other disorder (principal) ==

== ENCOUNTER 2023-05-16 16:16 | Outpatient (AMB) | payer BC, MEDICAID, SELFPAY ==
[2023-05-16 16:20] VITALS: BP 132/90; PULSE 80; O2SAT 95; BMI 26.4
--- NOTE | 2023-05-16 16:20 | A.OFFPC_ITS ---
Vital Signs 05/16/23 16:20 Height 5 ft 2 in Weight 144 lb 6 oz BMI 26.4 BP 132/90 H Blood Pressure Location Lt brachial Position Sitting Pulse 80 Pulse Source Pulse Oximeter Pulse Oximetry (%) 95 Oxygen Delivery Method Room Air Intake Visit Reasons: 4M Follow up, rescheduled from 05/01 Wound Specialist Required: No Accompanied by: Self / Same As Patient Allergies codeine Allergy (Unknown, Verified 05/16/23 16:59) Unknown Sulfa (Sulfonamide Antibiotics) Allergy (Unknown, Verified 05/16/23 16:59) hives (Sulfa), hives sulfacetamide [From Sulfacet-R] Allergy (Unknown, Verified 05/16/23 16:59) Hives sulfur [From Sulfacet-R] Allergy (Unknown, Verified 05/16/23 16:59) Hives frutose, galatose, synthetic s Allergy (Unknown, Uncoded 05/16/23 16:59) nausea and vomiting gabapentin Adverse Reaction (Intermediate, Uncoded 05/16/23 18:26) dizziness Medication List - Last Reconciled 05/16/23 by MD Kristal Whittington Autoinjector (fremanezumab-vfrm) 225 mg (1.5 mL) subcut .Once a month 3 months NS albuterol sulfate 90 mcg/actuation (ProAir HFA) 1 inh inhalation .Q 4 hours PRN baclofen 10 mg PO BID PRN beclomethasone dipropionate 80 mcg/actuation (QNASL) 2 sprays intranasal DAILY PRN 30 days beclomethasone dipropionate 80 mcg/actuation (Qvar RediHaler) 1 inh inhalation BID bupropion HCl 150 mg PO QAM 30 days Concerta ER (methylphenidate HCl) 36 mg PO QAM 30 days NS epinephrine IM fenofibrate nanocrystallized 48 mg PO DAILY 90 days fexofenadine ([facility]) 180 mg PO DAILY fluconazole 150 mg PO QWEEK 90 days fluocinolone-hydroq.-tretinoin 0.01-4-0.05 % (Tri-Elizabeth) 1 appl topical .QD fluoride (sodium) 1.1% appl PO BID glycopyrronium tosylate 2.4% (Qbrexza) 1 appl topical DAILY 30 days ibuprofen 800 mg PO DAILY PRN ketoconazole 2% 1 appl topical 2XW PRN levothyroxine 75 mcg PO DAILY linaclotide (Linzess) 290 mcg PO DAILY lorazepam 1 mg PO BEDTIME PRN 30 days pantoprazole 40 mg PO BID PRN pregabalin 50 mg PO BID 30 days riboflavin (vitamin B2) 100 mg PO DAILY 90 days simethicone (Gas Relief (simethicone)) 125 mg PO TID-QID PRN trazodone 300 mg (3 x 100 mg) PO BEDTIME PRN 90 days triamcinolone acetonide 0.1% topical BID venlafaxine ER 37.5 mg PO BEDTIME 30 days zolpidem 10 mg PO BEDTIME PRN 30 days Tobacco use date assessed: 05/16/23 Dental Screening Dental Screen Date: 05/16/23 Did you have a dental visit in the last 12 months?: Yes Did you have a dental problem in the last 6 months where you did not have access to dental care?: No Was dental information given to patient?: Patient has dentist HPI 4M Follow up, rescheduled from 05/01 HPI Details Patient comes in today for her follow up visit States that she continues to experience increased anxiety and that her current Rx (Bupropion 150 mg) is not helping enough Also continues to have trouble sleeping at night despite her current Trazodone dose of 300 mg a day AND Zolpidem 10 mg Q HS She is still complaining of increased diffuse pain as well, especially over her neck area - has been taking Pregabalin for a while now and states that it helps but only partially Also recalls testing positive for rheumatoid factor with rheumatology last year and is wondering if maybe she has rheumatoid arthritis and this is contributing to a lot of her current issues Last saw Dr. Eden at [facility] back in August 2022 but has not gone back to see him since States that she tried to go see psychiatry recently but was advised that they can see her for a one-time consultation and help her determine what appropriate medications she should be tried on but she will have to continue following up with her PCP and have her PCP manage her prescriptions as they do not have enough accommodations to see her regularly as a patient at this time Adds that she continues to experience episodes of low blood sugar wherein she will start breaking out in sweats and feel dizzy and symptoms will only improve once she gets something sweet to eat or drink Relates (+) on and off headaches Denies any exertional chest pains or increased SOB (+) nausea associated with headaches; de nies any vomiting or abdominal pains lately No change in bowel habits noted PFSH Medical History Peripheral neuropathy Mixed hyperlipidemia Irritable bowel syndrome with constipation Acquired hypothyroidism Overweight (BMI 25.0-29.9) Anxiety Migraine Evelyn's thyroiditis DJD (degenerative joint disease) Osteoporosis ADD (attention deficit disorder) Asthma GERD (gastroesophageal reflux disease) Iron (Fe) deficiency anemia Anxiety and depression Depression Chest pain Insomnia Chronic left ear pain Allergic rhinitis Surgical History H/O abdominoplasty H/O breast augmentation Hx of colonoscopy Hx of esophagogastroduodenoscopy History of surgery History of right breast biopsy History of laparoscopic cholecystectomy Family History Father Lung cancer Mother No problems noted. Sister No problems noted. Son No problems noted. Brother No problems noted. Social History Housing: House Alcohol intake: never Patient Tobacco Use Status: Never used Tobacco e-Cigarette/Vaping Use: Never Used Second Hand Smoke Exposure: No service: No Current occupational status: employed Cognitive needs: No Hearing needs: No Vision needs: Yes Questionnaire PHQ-9 Over the last 2 weeks, how often have you been bothered by any of the following problems? 1. Little interest or pleasure in doing things: not at all 2. Feeling down, depressed, or hopeless: not at all 3. Trouble falling or staying asleep, or sleeping too much: not at all 4. Feeling tired or having little energy: not at all 5. Poor appetite or overeating: not at all 6. Feeling bad about yourself - or that you are a failure or have let yourself or your family down: not at all 7. Trouble concentrating on things, such as reading the newspaper or watching television: several days 8. Moving or speaking so slowly that other people could have noticed. Or the opposite - being so fidgety or restless that you have been moving around a lot more than usual: not at all 9. Thoughts that you would be better off or of hurting yourself in some way: not at all Total score: 1 Depression Screening Interpretation: Positive Depression Screening Follow-up: Existing condition, In treatment, New Medication prescribed and Change in Medication Depression Screening Done: Yes 63054 - PHQ-9 Billing: Yes Source: Developed by Drs. Otilio Sanchez, Zena Almeida, Ray Shen and colleagues, with an educational lyudmila from [employer]. Thrive Questionnaire Date Thrive assessed: 05/16/23 I am a: Patient What is your living situation today?: I have a steady place to live Within the past 12 months, did the food you bought not last and you didn't have the money to get more?: Never true Within the past 12 months, did you worry whether your food would run out before you got money to buy more?: Never true Do you have trouble paying for medicines?: No Do you have trouble getting transportation to medical appointments?: No Do you have trouble paying your heating and electricity bill?: No Do you have trouble taking care of your child, family member or friend?: No Do you have trouble with day-to-day activities such as bathing, preparing meals, shopping, managing finances, etc.?: No Are you currently unemployed and looking for a job?: No Are you interested in more education?: No Please select the resources that you would like help with: None Currently or been in a relationship where the following occur: no concerns reported AUDIT C Alcohol Use Questionnaire (AUDIT-C) 1. How often do you have a drink containing alcohol?: Never 3. How often do you have six or more drinks on one occasion?: Never Total Score: 0 Score Reviewed/Action Taken: Yes KARON-7 AMB Questionnaire KARON-7 Date KARON - 7 assessed: 05/16/23 Feeling nervous, anxious, or on edge: 1 = Several days Not being able to stop or control worryin = Several days Worrying too much about different things: 1 = Several days Trouble relaxin = Several days Being so restless that it is hard to sit still: 1 = Several days Becoming easily annoyed or irritable: 1 = Several days Feeling afraid as if something awful might happen: 0 = Not at all Total KARON-7 score (0-4 normal; 5-9 mild; 10-14 moderate; 15-21 severe): 6 Source: Developed by Drs. Otilio Sanchez, Zena Almeida, Ray Shen and colleagues, with an educational lyudmila from [employer]. Review of Systems Const Denies chills, Reports difficulty sleeping, Reports fatigue (chronic), Denies fever(s) and Reports headache(s) (on and off) ENT Denies dysphagia, Reports dizziness (occasionally), Denies otalgia, Reports headache(s) (on and off), Reports neck pain (chronic), Denies odynophagia and Denies sore throat Card Denies chest pain, Denies rapid heart rate, Denies irregular heart rhythm, Denies palpitations and Denies dyspnea Resp Denies chest congestion, Denies cough, Denies dyspnea and Denies wheezing GI Denies abdominal pain, Denies constipation, Denies dysphagia, Denies heartburn, Denies diarrhea, Reports nausea (at times - associated with headaches), Denies odynophagia and Denies vomiting Denies urinary frequency, Denies dysuria, Denies urinary incontinence and Denies urinary urgency Musc Reports back pain (especially over her upper back lately, in between her shoulder blades), Reports myalgias (diffuse), Reports arthralgias (involving multiple joints), Denies joint swelling, Denies muscle weakness and Reports neck pain (chronic) Skin/Breast Denies rash Neuro Reports dizziness (occasionally), Reports headache(s) (on and off) and Denies paresthesias Psych Reports anxiety (increased) and Reports depression Endo Reports fatigue (chronic) and Denies palpitations Josh/Lymph Denies easy bruising Aller/Immun Denies wheezing Physical exam (Primary Care) Vital Signs: Last Vital Signs Pulse 80 05/16/23 16:20 BP 132/90 H 05/16/23 16:20 Pulse Ox 95 05/16/23 16:20 Oxygen Delivery Method Room Air 05/16/23 16:20 BMI result Body Mass Index 26.4 Tobacco/Smoking Status: Tobacco use Status Tobacco use date assessed 05/16/23 05/16/23 16:21 Patient Tobacco Use Status Never used Tobacco 05/16/23 16:21 e-Cigarette/Vaping Use Never Used 05/16/23 16:21 PHQ-9: PHQ-9 Score PHQ-9: Total score 1 05/16/23 16:21 Depression Screening Interpretation: Positive Depression Screening Follow-up: Existing condition, In treatment, New Medication prescribed and Change in Medication Thrive Assessment: Date of Thrive Assessment Date Thrive assessed 05/16/23 05/16/23 16:21 Currently or been in a relationship where the following occur: no concerns reported Const General: no acute distress and alert HENMT Ears: TM's normal bilaterally and EAC's normal Throat: Yes posterior oropharynx normal and Yes tonsils normal (no TP congestion) Neck Neck: Yes no lymphadenopathy and Yes supple Thyroid: Thyroid normal Resp Auscultation: clear to auscultation bilaterally, no rales and no wheezes Cardio Rate: regular rate Rhythm: regular rhythm Heart sounds: no murmurs GI Palpation (GI): Soft to palpation and nontender Auscultation: normal bowel sounds General: Yes no CVA tenderness Back/Spine/Pelvis Other: (+) tenderness over the midthoracic spine along the interscapular area Back: no CVA tenderness Cervical Spine: Cervical spine tenderness Thoracic/Lumbar Spine: lumbar spinal tenderness Extrem General: Yes no clubbing, cyanosis or edema Assessment and Plan Assessment & Plan (1) Back pain: Code(s): M54.9 - Dorsalgia, unspecified Qualifiers: Back pain location: thoracic back pain Chronicity: acute Back pain laterality: midline Qualified Code(s): M54.6 - Pain in thoracic spine Plan: Advised that her ongoing back pain and neck pain are most likely related to her fibromyalgia Thoracic spine x-rays done in [place] a few months ago (January 2023) revealed only (+) mild multilevel degenerative changes at the mid-thoracic spine Continue Baclofen 10 mg BID PRN and Pregabalin 50 mg TID (2) Peripheral neuropathy: Code(s): G62.9 - Polyneuropathy, unspecified Qualifiers: Peripheral neuropathy type: polyneuropathy, unspecified Qualified Code(s): G62.9 - Polyneuropathy, unspecified Plan: EMG and NCV done a few months ago revealed (+) mild to moderate peripheral sensory neuropathy Continue Pregabalin 50 mg TID; she was not able to tolerate Gabapentin due to dizziness (3) Asthma: Code(s): J45.909 - Unspecified asthma, uncomplicated Qualifiers: Asthma severity: mild Asthma persistence: persistent Asthma complication type: uncomplicated Qualified Code(s): J45.30 - Mild persistent asthma, uncomplicated Plan: Stable lately Continue Qvar Redihaler 80 mcg 1 inhalation BID and Albuterol HFA 2 inhalations every 6 hours as needed - patient requested to be switched back to Qvar from Flovent HFA at a previous visit last year (4) Allergic rhinitis: Code(s): J30.9 - Allergic rhinitis, unspecified Qualifiers: Allergic rhinitis trigger: unspecified Allergic rhinitis seasonality: unspecified Qualified Code(s): J30.9 - Allergic rhinitis, unspecified Plan: Follow up with [facility] for her allergies as scheduled Continue Fexofenadine 180 mg QD PRN (5) Acquired hypothyroidism: Code(s): E03.9 - Hypothyroidism, unspecified Plan: Has Evelyn's thyroiditis and is now seeing Dr. Carlton for endocrinology follow up regularly Continue Levothyroxine 75 mcg QD (6) Hypoglycemia: Code(s): E16.2 - Hypoglycemia, unspecified Plan: Patient is advised that her recent labs done over the past few months have not been able to help explain her recurrent hypoglycemic episodes Discussed that potential reasons for her recurrent hypoglycemia include an imbalanced or unhealthy diet; cautioned also that Trazodone may be contributing to her hypoglycemia, especially since she is on such high doses of Trazodone currently As she is already seeing Dr. Carlton for her thyroid issues and osteoporosis, will refer her to him as well for further evaluation and management of her recurrent hypoglycemic episodes (7) Osteoporosis: Code(s): M81.0 - Age-related osteoporosis without current pathological fracture Qualifiers: Osteoporosis type: age-related Presence of current pathological fracture: without current pathological fracture Qualified Code(s): M81.0 - Age- related osteoporosis without current pathological fracture Plan: Continue Prolia injections every 6 months Follow up with endocrinology as scheduled - is now seeing Dr. Carlton at [facility] (8) Rheumatoid factor positive: Comment: 03/2022 - no synovitis Code(s): R76.8 - Other specified abnormal immunological findings in serum Plan: Patient recalls that she tested positive for rheumatoid factor and is wondering what she should do about this and if this is contributing to her current symptoms Advised that at this time, the most prudent thing to do would be for her to reach out to the rheumatology office to schedule a follow up appt with Dr. Meek SALMON and ask him all of the questions she currently has regarding this Cautioned that just because her rheumatoid factor is positive, it does not automatically means that she has rheumatoid arthritis and it will be up to rheumatology to properly work her up for this (9) Irritable bowel syndrome with constipation: Code(s): K58.1 - Irritable bowel syndrome with constipation Plan: Reinforced increased oral fluids and dietary fiber Continue Dicyclomine PRN Has been tried on multiple medications in the past for her constipation with limited relief, including Linzess and Farnaz Is now seeing GI out of [facility] via telehealth and is on Amitiza 8 mcg BID (10) Insomnia: Code(s): G47.00 - Insomnia, unspecified Qualifiers: Insomnia type: unspecified Qualified Code(s): G47.00 - Insomnia, unspecified Plan: Sleep hygiene reinforced Currently takes Trazodone 300 mg Q HS PRN but she has been advised to try to slowly cut back on her dosage since it does not appear to be helping Cautioned that her Trazodone may also be contributing to her recent increasing anxiety and depression She will be started additionally on Mirtazapine at bedtime, which should hopefully help somewhat with her sleep as well (11) ADD (attention deficit disorder): Code(s): F98.8 - Other specified behavioral and emotional disorders with onset usually occurring in childhood and adolescence Qualifiers: Hyperactivity presence: unspecified Qualified Code(s): F98.8 - Other specified behavioral and emotional disorders with onset usually occurring in childhood and adolescence Plan: Continue Concerta ER 36 mg QD in AM (12) Anxiety: Code(s): F41.9 - Anxiety disorder, unspecified Plan: Continue Lorazepam 1 mg Q HS PRN Was also on Buspirone 5 mg BID previously but patient stop taking Rx a while back as she felt that it was not helping She was previously started back on Bupropion XL 150 mg QD although she feels that this is not helping enough - will now increase her Bupropion XL to 300 mg QD (13) Depression: Comment: most likely has bipolar depression Code(s): F32.9 - Major depressive disorder, single episode, unspecified Qualifiers: Depression Type: major depressive disorder Major depression recurrence: recurrent Active/Remission status: currently active Major depression episode severity: unspecified Qualified Code(s): F33.9 - Major depressive disorder, recurrent, unspecified Plan: Continue Bupropion XL 300 mg QD; will start patient additionally on Mirtazapine 15 mg Q HS She used to take Venlafaxine 37.5 mg but stopped taking it a few months ago as she felt that the medication was making her more constipated and aggravating her trouble sleeping at night although she admits that none of these got significantly better when she stopped taking her Venlafaxine Follow up with psychiatry as scheduled (14) Overweight (BMI 25.0-29.9): Code(s): E66.3 - Overweight Plan: Reinforced diet; her exercise and weight loss options may be limited due to her current physical issues and comorbidities Patient wanted to try Qsymia previously but insurance would not cover Rx She would also not be a good candidate for Phentermine as she is on Concerta for her ADD Plan Follow up in 3 months Orders: Referrals Endocrinology Referral E16.2 - Hypoglycemia, unspecified Medications: New mirtazapine 15 mg PO BEDTIME 30 tabs 3RF Changed From bupropion HCl 150 mg PO QAM 30 days 30 tabs 3RF To bupropion HCl 300 mg PO QAM 30 days 30 tabs 3RF Coding Level of Care Code Est Pt Level 4 (86200) Diagnoses Acute midline thoracic back pain M54.6 Back pain location: thoracic back pain Chronicity: acute Back pain laterality: midline Peripheral polyneuropathy G62.9 Peripheral neuropathy type: polyneuropathy, unspecified Mild persistent asthma without complication J45.30 Asthma severity: mild Asthma persistence: persistent Asthma complication type: uncomplicated Allergic rhinitis, unspecified seasonality, unspecified trigger J30.9 Allergic rhinitis trigger: unspecified Allergic rhinitis seasonality: unspecified Acquired hypothyroidism E03.9 Hypoglycemia E16.2 Age-related osteoporosis without current pathological fracture M81.0 Osteoporosis type: age-related Presence of current pathological fracture: without current pathological fracture Rheumatoid factor positive R76.8 Irritable bowel syndrome with constipation K58.1 Insomnia, unspecified type G47.00 Insomnia type: unspecified Attention deficit disorder, unspecified hyperactivity presence F98.8 Hyperactivity presence: unspecified Anxiety F41.9 Episode of recurrent major depressive disorder, unspecified depression episode severity F33.9 Depression Type: major depressive disorder Major depression recurrence: recurrent Active/Remission status: currently active Major depression episode severity: unspecified Overweight (BMI 25.0-29.9) E66.3
== END 2023-05-16 17:14 | disposition home or self-care (01) ==
PROVIDERS: PCP Internal Medicine; Visit Provider Internal Medicine
DX: M54.6 Pain in thoracic spine (principal); G62.9 Polyneuropathy, unspecified; J45.30 Mild persistent asthma, uncomplicated; F33.9 Major depressive disorder, recurrent, unspecified; J30.9 Allergic rhinitis, unspecified; E03.9 Hypothyroidism, unspecified; E16.2 Hypoglycemia, unspecified; M81.0 Age-related osteoporosis without current pathological fracture; R76.8 Other specified abnormal immunological findings in serum; G47.00 Insomnia, unspecified; K58.1 Irritable bowel syndrome with constipation; F98.8 Other specified behavioral and emotional disorders with onset usually occurring in childhood and adolescence
CPT/HCPCS: 99214

== ENCOUNTER 2023-09-29 13:06 | Outpatient (AMB) | payer OTHER, SELFPAY ==
--- NOTE | 2023-09-29 13:10 | A.OFFPC_ITS ---
Vital Signs 09/29/23 13:11 Height 5 ft 2 in Weight 145 lb 2 oz BMI 26.5 BP 120/60 Blood Pressure Location Lt brachial Position Sitting Pulse 73 Pulse Source Pulse Oximeter Pulse Oximetry (%) 98 Oxygen Delivery Method Room Air Intake Visit Reasons: Annual PE Intake Note: Patient is here today for a physical. Community Education Specialist Required: No Project Lead: Not Required per policy Accompanied by: Self / Same As Patient Allergies codeine Allergy (Unknown, Verified 01/01/24 16:14) Unknown Sulfa (Sulfonamide Antibiotics) Allergy (Unknown, Verified 01/01/24 16:14) hives (Sulfa), hives sulfacetamide [From Sulfacet-R] Allergy (Unknown, Verified 01/01/24 16:14) Hives sulfur [From Sulfacet-R] Allergy (Unknown, Verified 01/01/24 16:14) Hives frutose, galatose, synthetic s Allergy (Unknown, Uncoded 01/01/24 16:14) nausea and vomiting gabapentin Adverse Reaction (Intermediate, Uncoded 01/01/24 16:14) dizziness Medication List - Last Reconciled 09/29/23 by MD Elvis Whittingtonovy Autoinjector (fremanezumab-vfrm) 225 mg (1.5 mL) subcut .Once a month 3 months NS albuterol sulfate 90 mcg/actuation (ProAir HFA) 1 inh inhalation .Q 4 hours PRN baclofen 10 mg PO BID PRN beclomethasone dipropionate 80 mcg/actuation (QNASL) 2 sprays intranasal DAILY PRN 30 days beclomethasone dipropionate 80 mcg/actuation (Qvar RediHaler) 1 inh inhalation BID Concerta ER (methylphenidate HCl) 36 mg PO QAM 30 days NS epinephrine IM fenofibrate nanocrystallized 48 mg PO DAILY 90 days fexofenadine (Lynne Allergy) 180 mg PO DAILY fluconazole 150 mg PO QWEEK 90 days fluoride (sodium) 1.1% appl PO BID ibuprofen 800 mg PO DAILY PRN ketoconazole 2% 1 appl topical 2XW PRN levothyroxine 75 mcg PO DAILY linaclotide (Linzess) 290 mcg PO DAILY lorazepam 1 mg PO BEDTIME PRN 30 days mirtazapine 15 mg PO BEDTIME orlistat 120 mg PO TID pantoprazole 40 mg PO BID PRN pregabalin 50 mg PO BID 30 days riboflavin (vitamin B2) 100 mg PO DAILY 90 days simethicone (Gas Relief (simethicone)) 125 mg PO TID-QID PRN trazodone 300 mg (3 x 100 mg) PO BEDTIME PRN 90 days triamcinolone acetonide 0.1% topical BID venlafaxine ER 37.5 mg PO BEDTIME 30 days zolpidem 10 mg PO BEDTIME PRN 30 days Tobacco use date assessed: 09/29/23 Dental Screening Dental Screen Date: 09/29/23 Did you have a dental visit in the last 12 months?: Yes Did you have a dental problem in the last 6 months where you did not have access to dental care?: No Was dental information given to patient?: Patient has dentist HPI Annual PE HPI Details Patient comes in today for her annual physical examination States that she continues to complain of diffuse pain and myalgia as well as chronic fatigue, on and off headaches and dizziness and bilateral ear pain and discomfort States that she recently finished some Abx for her ear symptoms but they did not really help much She denies any fever but is still complaining of recurrent sore throat, which she has had for a while now She denies any recent cough or cold symptoms Also still has on and off headaches and occasional dizziness She denies any exertional chest pains or increased shortness of breath Reports (+) occasional nausea when her headaches are more severe, but denies any vomiting or abdominal pain She continues to struggle with chronic constipation Denies any acute urinary symptoms She still has difficulty sleeping at night and states that her Trazodone is not helping and would like to try zolpidem again She also reportedly stopped taking her Bupropion XL and Mirtazapine on her own as they were not helping with her anxiety and depression and would like to try Fluoxetine again, which she was on in the past States that she still has not been able to get established with Psychiatry yet as none of the practices she checked with is accepting her health insurance She has no recent follow-up labs done Her last mammogram was done at [facility] on 12/29/2022 Her colonoscopy was last done on 04/23/[address] Francis - (+) tubular adenoma and recommend repeat colonoscopy in 3 to 4 years Her last pap smear and gynecology exam was done in December 2022 at [facility] -so she is currently up-to-date with all of her cancer screenings [facility] Medical History Peripheral neuropathy Mixed hyperlipidemia Irritable bowel syndrome with constipation Acquired hypothyroidism Overweight (BMI 25.0-29.9) Anxiety Migraine Evelyn's thyroiditis DJD (degenerative joint disease) Osteoporosis ADD (attention deficit disorder) Asthma GERD (gastroesophageal reflux disease) Iron (Fe) deficiency anemia Anxiety and depression Depression Chest pain Insomnia Chronic left ear pain Allergic rhinitis Surgical History H/O abdominoplasty H/O breast augmentation Hx of colonoscopy Hx of esophagogastroduodenoscopy History of surgery History of right breast biopsy History of laparoscopic cholecystectomy Family History Father Lung cancer Mother No problems noted. Sister No problems noted. Son No problems noted. Brother No problems noted. Social History Housing: House Alcohol intake: never Patient Tobacco Use Status: Never used Tobacco e-Cigarette/Vaping Use: Never Used Second Hand Smoke Exposure: No service: No Current occupational status: employed Cognitive needs: No Hearing needs: No Vision needs: Yes (glasses) Questionnaire PHQ-9 Over the last 2 weeks, how often have you been bothered by any of the following problems? 1. Little interest or pleasure in doing things: not at all 2. Feeling down, depressed, or hopeless: not at all 3. Trouble falling or staying asleep, or sleeping too much: not at all 4. Feeling tired or having little energy: not at all 5. Poor appetite or overeating: not at all 6. Feeling bad about yourself - or that you are a failure or have let yourself or your family down: not at all 7. Trouble concentrating on things, such as reading the newspaper or watching television: not at all 8. Moving or speaking so slowly that other people could have noticed. Or the opposite - being so fidgety or restless that you have been moving around a lot more than usual: not at all 9. Thoughts that you would be better off or of hurting yourself in some way: not at all Total score: 0 Depression Screening Interpretation: Negative Depression Screening Done: Yes 71426 - PHQ-9 Billing: Yes Source: Developed by Drs. Otilio Sanchez, Zena Almeida, Ray Shen and colleagues, with an educational lyudmila from [employer]. Thrive Questionnaire Date Thrive assessed: 09/29/23 I am a: Patient What is your living situation today?: I have a steady place to live Within the past 12 months, did the food you bought not last and you didn't have the money to get more?: Never true Within the past 12 months, did you worry whether your food would run out before you got money to buy more?: Never true Do you have trouble paying for medicines?: No Do you have trouble getting transportation to medical appointments?: No Do you have trouble paying your heating and electricity bill?: No Do you have trouble taking care of your child, family member or friend?: No Do you have trouble with day-to-day activities such as bathing, preparing meals, shopping, managing finances, etc.?: No Are you currently unemployed and looking for a job?: No Are you interested in more education?: No Currently or been in a relationship where the following occur: no concerns reported THRIVE Score: 0 AUDIT C Alcohol Use Questionnaire (AUDIT-C) 1. How often do you have a drink containing alcohol?: Never 3. How often do you have six or more drinks on one occasion?: Never Total Score: 0 Score Reviewed/Action Taken: Yes KARON-7 AMB Questionnaire KARON-7 Date KARON - 7 assessed: 09/29/23 Feeling nervous, anxious, or on edge: 2 = More than half the days Not being able to stop or control worryin = More than half the days Worrying too much about different things: 2 = More than half the days Trouble relaxin = More than half the days Being so restless that it is hard to sit still: 0 = Not at all Becoming easily annoyed or irritable: 0 = Not at all Feeling afraid as if something awful might happen: 2 = More than half the days Total KARON-7 score (0-4 normal; 5-9 mild; 10-14 moderate; 15-21 severe): 10 Source: Developed by Drs. Otilio Sanchez, Zena Almeida, Ray Shen and colleagues, with an educational lyudmila from [employer]. Review of Systems Const Denies chills, Reports difficulty sleeping, Reports fatigue (chronic), Denies fever(s) and Reports headache(s) (on and off) Eyes Denies blurry vision, Denies change in vision, Denies irritation and Denies itchy eyes ENT Denies dysphagia, Reports dizziness (on and off), Reports otalgia (bilateral, chronic), Reports headache(s) (on and off), Reports neck pain (chronic), Denies odynophagia and Denies sore throat Card Denies chest pain, Denies rapid heart rate, Denies irregular heart rhythm, Denies palpitations and Denies dyspnea Resp Denies chest congestion, Denies cough, Denies dyspnea and Denies wheezing GI Denies abdominal pain, Denies constipation, Denies dysphagia, Denies heartburn, Denies diarrhea, Reports nausea (at times - associated with headaches), Denies odynophagia and Denies vomiting Denies urinary frequency, Denies dysuria, Denies urinary incontinence and Denies urinary urgency Musc Reports back pain (especially over her upper back lately, in between her shoulder blades), Reports myalgias (diffuse), Reports arthralgias (involving multiple joints), Denies joint swelling, Denies muscle weakness and Reports neck pain (chronic) Skin/Breast Denies rash Neuro Reports dizziness (on and off), Reports headache(s) (on and off) and Denies paresthesias Psych Reports anxiety (increased) and Reports depression Endo Reports fatigue (chronic) and Denies palpitations Josh/Lymph Denies easy bruising Aller/Immun Denies itchy eyes and Denies wheezing Physical exam (Primary Care) Vital Signs: Last Vital Signs Pulse 73 09/29/23 13:11 BP 120/60 09/29/23 13:11 Pulse Ox 98 09/29/23 13:11 Oxygen Delivery Method Room Air 09/29/23 13:11 BMI result Body Mass Index 26.5 Tobacco/Smoking Status: Tobacco use Status Tobacco use date assessed 09/29/23 09/29/23 13:21 Patient Tobacco Use Status Never used Tobacco 03/29/24 13:21 e-Cigarette/Vaping Use Never Used 09/29/23 13:21 PHQ-9: PHQ-9 Score PHQ-9: Total score 0 09/29/23 13:47 Depression Screening Interpretation: Negative Thrive Assessment: Date of Thrive Assessment Date Thrive assessed 09/29/23 09/29/23 13:21 Currently or been in a relationship where the following occur: no concerns reported Const General: no acute distress and alert Orientation/consciousness: patient oriented x3 HENMT Head: Yes normocephalic and Yes atraumatic Ears: TM's normal bilaterally and EAC's normal General nose exam: No nasal discharge present Face and sinus: Yes normal facial exam and Yes sinuses nontender Teeth and gingiva: dentition normal Throat: Yes posterior oropharynx normal and Yes tonsils normal (no TP congestion) Eyes Eyelids: Yes eyelids normal Conjunctivae: conjunctivae normal Pupils: Equal, round and reactive pupils present EOM: EOMs intact bilaterally Neck Neck: Yes no lymphadenopathy and Yes supple Thyroid: Thyroid normal Resp Auscultation: clear to auscultation bilaterally, no rales and no wheezes Cardio Rate: regular rate Rhythm: regular rhythm Heart sounds: no murmurs GI Palpation (GI): Soft to palpation and nontender Auscultation: normal bowel sounds General: Yes no CVA tenderness Back/Spine/Pelvis Other: (+) tenderness over the midthoracic spine along the interscapular area Back: no CVA tenderness Cervical Spine: Cervical spine tenderness Thoracic/Lumbar Spine: lumbar spinal tenderness Skin Lesions: no lesions Rashes: no rashes Neuro General: patient oriented x3, moves all extremities, no focal motor deficits and CN's II-XI intact bilaterally Cranial nerves: Yes Equal, round and reactive pupils present Cognition (Neuro): normal cognition Gait exam (Neuro): Normal gait present Extrem General: Yes no clubbing, cyanosis or edema Assessment and Plan Assessment & Plan (1) Annual physical exam: Code(s): Z00.00 - Encounter for general adult medical examination without abnormal findings Plan: Patient is advised to try getting her follow-up labs done VI[facility] She is up-to-date with all of her cancer screenings - her last mammogram was done at [facility] on 12/29/2022 Her colonoscopy was last done on 04/23/[address] Tito - (+) tubular adenoma and she was recommended to get a repeat colonoscopy in 3 to 4 years Her last pap smear and gynecology exam was done in December 2022 at [facility] (2) Fibromyalgia: Code(s): M79.7 - Fibromyalgia Plan: Her most recent thoracic spine x-rays done in [facility] in January 2023 revealed only (+) mild multilevel degenerative changes at the mid-thoracic spine Continue Pregabalin 50 mg TID (3) Ear pain: Code(s): H92.09 - Otalgia, unspecified ear Qualifiers: Laterality: bilateral Qualified Code(s): H92.03 - Otalgia, bilateral Plan: Patient has been complaining of frequent/persistent ear pain/congestion/discomfort for the past few years and these have not responded so far to empiric Abx Tx as well as trials of antihistamines and decongestants Suspect that she may possibly have some type of eustachian tube disorder She is advised that her ear exam in the office today is normal She has previously been referred to ENT further evaluation and management but states that she was never contacted to schedule an appointment or seen - have provided her again with the contact information for the ENT practice that she was referred to in [place] and she is encouraged to reach out to them to see why she has not been contacted yet for an appointment (4) Asthma: Code(s): J45.909 - Unspecified asthma, uncomplicated Qualifiers: Asthma severity: mild Asthma persistence: persistent Asthma complication type: uncomplicated Qualified Code(s): J45.30 - Mild persistent asthma, uncomplicated Plan: Stable Continue Qvar Redihaler 80 mcg 1 inhalation BID and Albuterol HFA 2 inhalations every 6 hours as needed (5) Allergic rhinitis: Code(s): J30.9 - Allergic rhinitis, unspecified Qualifiers: Allergic rhinitis trigger: unspecified Allergic rhinitis seasonality: unspecified Qualified Code(s): J30.9 - Allergic rhinitis, unspecified Plan: Follow up with [facility] for her allergies as scheduled Continue Fexofenadine 180 mg QD PRN (6) Peripheral neuropathy: Code(s): G62.9 - Polyneuropathy, unspecified Qualifiers: Peripheral neuropathy type: polyneuropathy, unspecified Qualified Code(s): G62.9 - Polyneuropathy, unspecified Plan: EMG and NCV done a few months ago revealed (+) mild to moderate peripheral sensory neuropathy Continue Pregabalin 50 mg TID; she was not able to tolerate Gabapentin due to dizziness (7) Acquired hypothyroidism: Code(s): E03.9 - Hypothyroidism, unspecified Plan: She has Evelyn's thyroiditis and is seeing Dr. Carlton for endocrinology follow up regularly Continue Levothyroxine 100 mcg QD (8) Osteoporosis: Code(s): M81.0 - Age-related osteoporosis without current pathological fracture Qualifiers: Osteoporosis type: age-related Presence of current pathological fracture: without current pathological fracture Qualified Code(s): M81.0 - Age- related osteoporosis without current pathological fracture Plan: Continue Prolia injections every 6 months Follow up with endocrinology as scheduled - is seeing Dr. Carlton at [facility] (9) Irritable bowel syndrome with constipation: Code(s): K58.1 - Irritable bowel syndrome with constipation Plan: Reinforced increased oral fluids and dietary fiber Continue Dicyclomine PRN She has been tried on multiple medications in the past for her constipation with limited relief, including Trulance and Amitiza She continues to follow up with GI out of [facility] via telehealth visits and is now back on Linzess 290 mcg QD (10) Insomnia: Code(s): G47.00 - Insomnia, unspecified Qualifiers: Insomnia type: unspecified Qualified Code(s): G47.00 - Insomnia, unspecified Plan: Sleep hygiene reinforced She is currently still taking Trazodone 300 mg Q HS PRN but she has been advised to try to slowly cut back on her dosage since it does not appear to be helping Cautioned that her Trazodone may also be contributing to her recent increasing anxiety and depression She was tried on Mirtazapine at bedtime, which she states did not help and she has since stopped taking the medication Would like to try Zolpidem again - is advised that we can start her back on Zolpidem but she should STOP taking Trazodone as we generally do not recommend patients be on BOTH Rx (11) ADD (attention deficit disorder): Code(s): F98.8 - Other specified behavioral and emotional disorders with onset usually occurring in childhood and adolescence Qualifiers: Hyperactivity presence: unspecified Qualified Code(s): F98.8 - Other specified behavioral and emotional disorders with onset usually occurring in childhood and adolescence Plan: Per request, will try starting her back on Methylphenidate ER 36 mg QD in AM (12) Anxiety: Code(s): F41.9 - Anxiety disorder, unspecified Plan: Continue Lorazepam 1 mg Q HS PRN Was also on Buspirone 5 mg BID previously but patient stop taking Rx a while back as she felt that it was not helping She was previously started back on Bupropion XL 150 mg QD, with her dose subsequently increased to 300 mg QD but she states that it did not help and she also stopped taking it a while back Per her request, will start her back on Fluoxetine 20 mg QD (13) Depression: Comment: most likely has bipolar depression Code(s): F32.9 - Major depressive disorder, single episode, unspecified Qualifiers: Depression Type: major depressive disorder Major depression recurrence: recurrent Active/Remission status: currently active Major depression episode severity: unspecified Qualified Code(s): F33.9 - Major depressive disorder, recurrent, unspecified Plan: She used to take Venlafaxine 37.5 mg but stopped taking it a few months ago as she felt that the medication was making her more constipated and aggravating her trouble sleeping at night although she admits that none of these got significantly better when she stopped taking her Venlafaxine She was also on Bupropion XL 300 mg QD and Mirtazapine 15 mg Q HS but she also ended up self discontinuing the medications as she felt that they were not helping Will start her now on Fluoxetine 20 mg QD, per her request We have tried referring her to Psychiatry multiple times in the past but she states that she still has not been able to get established with a psychiatrist so far as a lot of them do not accept her health insurance (14) Overweight (BMI 25.0-29.9): Code(s): E66.3 - Overweight Plan: Reinforced diet; her exercise and weight loss options may be limited due to her current physical issues and comorbidities Patient wanted to try Qsymia previously but insurance would not cover Rx She was advised that she would also not be a good candidate for Phentermine as she is on Concerta for her ADD Plan Follow up in 3 months Orders: Orders Comprehensive [place]. Panel Fast 3 Months E78.00 - Pure hypercholesterolemia, unspecified Lipid Panel 3 Months E78.00 - Pure hypercholesterolemia, unspecified Free T4 (Free Thyroxine) 3 Months E03.9 - Hypothyroidism, unspecified Thyroid Stimulating Hormone 3 Months E03.9 - Hypothyroidism, unspecified Referrals Ear/Nose/Throat Referral H92.09 - Otalgia, unspecified ear Medications: New polyethylene glycol 3350 17 grams PO DAILY 510 grams 5RF mirtazapine 7.5 mg PO BEDTIME 30 tabs 3RF 30 days hydroxyzine HCl 25 mg PO TID PRN 90 tabs 2RF anxiety 30 days levothyroxine 100 mcg PO DAILY 90 tabs 1RF 90 days thiamine mononitrate (vit B1) 100 mg PO DAILY 90 tabs 3RF 90 days fluoxetine Take 1/2 tablet (10 mg) QD x 7 days, then 1 tablet (20 mg ) QD 20 mg PO DAILY 30 tabs 3RF 30 days Refilled orlistat administer during or up to 1 hour after meal 120 mg PO TID 90 caps 3RF Concerta ER (methylphenidate HCl) 36 mg PO QAM 30 tabs 0RF 30 days NS F90.9 - Attention-deficit hyperactivity disorder, unspecified type fenofibrate nanocrystallized 48 mg PO DAILY 90 tabs 1RF 90 days Coding Level of Care Code Est Pt Prev Care 40-64y(34230) Diagnoses Annual physical exam Z00.00 Fibromyalgia M79.7 Otalgia of both ears H92.03 Laterality: bilateral Mild persistent asthma without complication J45.30 Asthma severity: mild Asthma persistence: persistent Asthma complication type: uncomplicated Allergic rhinitis, unspecified seasonality, unspecified trigger J30.9 Allergic rhinitis trigger: unspecified Allergic rhinitis seasonality: unspecified Peripheral polyneuropathy G62.9 Peripheral neuropathy type: polyneuropathy, unspecified Acquired hypothyroidism E03.9 Age-related osteoporosis without current pathological fracture M81.0 Osteoporosis type: age-related Presence of current pathological fracture: without current pathological fracture Irritable bowel syndrome with constipation K58.1 Insomnia, unspecified type G47.00 Insomnia type: unspecified Attention deficit disorder, unspecified hyperactivity presence F98.8 Hyperactivity presence: unspecified Anxiety F41.9 Episode of recurrent major depressive disorder, unspecified depression episode severity F33.9 Depression Type: major depressive disorder Major depression recurrence: recurrent Active/Remission status: currently active Major depression episode severity: unspecified Overweight (BMI 25.0-29.9) E66.3
[2023-09-29 13:11] VITALS: BP 120/60; PULSE 73; O2SAT 98; BMI 26.5
== END 2023-09-29 14:25 | disposition home or self-care (01) ==
PROVIDERS: PCP Internal Medicine; Visit Provider Internal Medicine
DX: Z00.00 Encounter for general adult medical examination without abnormal findings (principal); M79.7 Fibromyalgia; H92.03 Otalgia, bilateral; J45.30 Mild persistent asthma, uncomplicated; J30.9 Allergic rhinitis, unspecified; G62.9 Polyneuropathy, unspecified; E03.9 Hypothyroidism, unspecified; M81.0 Age-related osteoporosis without current pathological fracture; K58.1 Irritable bowel syndrome with constipation; G47.00 Insomnia, unspecified; F98.8 Other specified behavioral and emotional disorders with onset usually occurring in childhood and adolescence; F41.9 Anxiety disorder, unspecified; F33.9 Major depressive disorder, recurrent, unspecified; E66.3 Overweight
CPT/HCPCS: 99499

== ENCOUNTER 2024-01-01 15:36 | Outpatient (AMB) | payer OTHER, MEDICAID, SELFPAY ==
--- NOTE | 2024-01-01 15:43 | A.OFFPC_ITS ---
Vital Signs 01/01/24 15:45 Height 5 ft 2 in Weight 144 lb 2 oz BMI 26.4 BP 120/76 Blood Pressure Location Lt brachial Position Sitting Pulse 77 Pulse Source Pulse Oximeter Pulse Oximetry (%) 97 Oxygen Delivery Method Room Air Intake Visit Reasons: 3 Month F/U Intake Note: Patient is here to follow up on HLD, OA, Asthma. Chief Learning Officer Required: No Donor Floor Technician: Not Required per policy Accompanied by: Self / Same As Patient Allergies codeine Allergy (Unknown, Verified 01/01/24 16:14) Unknown Sulfa (Sulfonamide Antibiotics) Allergy (Unknown, Verified 01/01/24 16:14) hives (Sulfa), hives sulfacetamide [From Sulfacet-R] Allergy (Unknown, Verified 01/01/24 16:14) Hives sulfur [From Sulfacet-R] Allergy (Unknown, Verified 01/01/24 16:14) Hives frutose, galatose, synthetic s Allergy (Unknown, Uncoded 01/01/24 16:14) nausea and vomiting gabapentin Adverse Reaction (Intermediate, Uncoded 01/01/24 16:14) dizziness Medication List - Last Reconciled 01/01/24 by Chris Huff MD albuterol sulfate 90 mcg/actuation (ProAir HFA) 1 inh inhalation .Q 4 hours PRN beclomethasone dipropionate 80 mcg/actuation (QNASL) 2 sprays intranasal DAILY PRN 30 days epinephrine IM fenofibrate nanocrystallized 48 mg PO DAILY 90 days fexofenadine (Lynne Allergy) 180 mg PO DAILY fluoxetine 20 mg PO DAILY 30 days ibuprofen 800 mg PO DAILY PRN levothyroxine 100 mcg PO DAILY 90 days linaclotide (Linzess) 290 mcg PO DAILY lorazepam 1 mg PO BEDTIME PRN 30 days orlistat 120 mg PO TID pantoprazole 40 mg PO BID PRN polyethylene glycol 3350 17 grams PO DAILY pregabalin 50 mg PO BID 30 days riboflavin (vitamin B2) 100 mg PO DAILY 90 days simethicone (Gas Relief (simethicone)) 125 mg PO TID-QID PRN thiamine mononitrate (vit B1) 100 mg PO DAILY 90 days trazodone 300 mg (3 x 100 mg) PO BEDTIME PRN 90 days triamcinolone acetonide 0.1% topical BID Tobacco use date assessed: 01/01/24 Dental Screening Dental Screen Date: 09/29/23 HPI 3 Month F/U HPI Details Patient comes in today for her follow-up visit As usual, she has multiple issues to discuss States that her ears continue to bother her - has had chronic ear pain /discomfort /congestion for months now with no relief in the past with empiric treatment with antibiotics She denies any fever or any recent sore throat Denies any increased headaches or dizziness lately Denies any exertional chest pains or increased shortness of breath No nausea /vomiting, no abdominal pain No change in bowel habits noted She continues to complain of diffuse joint pains and myalgias that are mostly unchanged from previous States that she has not been able to get her Concerta Rx refilled as her prior authorization was not approved by her insurance She continues to struggle with difficulty with concentration as well as anxiety and depression despite her current medications She needs a few Rx refilled Has not had any follow-up labs done recently [facility] Medical History Peripheral neuropathy Mixed hyperlipidemia Irritable bowel syndrome with constipation Acquired hypothyroidism Overweight (BMI 25.0-29.9) Anxiety Migraine Evelyn's thyroiditis DJD (degenerative joint disease) Osteoporosis ADD (attention deficit disorder) Asthma GERD (gastroesophageal reflux disease) Iron (Fe) deficiency anemia Anxiety and depression Depression Chest pain Insomnia Chronic left ear pain Allergic rhinitis Surgical History H/O abdominoplasty H/O breast augmentation Hx of colonoscopy Hx of esophagogastroduodenoscopy History of surgery History of right breast biopsy History of laparoscopic cholecystectomy Family History Father Lung cancer Mother No problems noted. Sister No problems noted. Son No problems noted. Brother No problems noted. Social History Housing: House Alcohol intake: never Patient Tobacco Use Status: Never used Tobacco e-Cigarette/Vaping Use: Never Used Second Hand Smoke Exposure: No service: No Current occupational status: employed Cognitive needs: No Hearing needs: No Vision needs: Yes (glasses) Questionnaire Thrive Questionnaire Date Thrive assessed: 09/29/23 KARON-7 AMB Questionnaire KARON-7 Date KARON - 7 assessed: 09/29/23 Source: Developed by Drs. Otilio Sanchez, Zena Almeida, Ray Shen and colleagues, with an educational lyudmila from [employer]. Review of Systems Const Denies chills, Reports difficulty sleeping, Reports fatigue (chronic), Denies fever(s) and Reports headache(s) (on and off as before) ENT Denies dysphagia, Reports dizziness (occasionally, most unchanged from previous), Reports otalgia (bilateral, chronic), Reports headache(s) (on and off as before), Reports neck pain (chronic), Denies odynophagia and Denies sore throat Card Denies chest pain, Denies rapid heart rate, Denies irregular heart rhythm, Denies palpitations and Denies dyspnea Resp Denies chest congestion, Denies cough, Denies dyspnea and Denies wheezing GI Denies abdominal pain, Denies constipation, Denies dysphagia, Denies heartburn, Denies diarrhea, Reports nausea (at times - associated with headaches), Denies odynophagia and Denies vomiting Denies urinary frequency, Denies dysuria, Denies urinary incontinence and Denies urinary urgency Musc Reports back pain (especially over her upper back lately, in between her shoulder blades), Reports myalgias (diffuse), Reports arthralgias (involving multiple joints), Denies joint swelling, Denies muscle weakness and Reports neck pain (chronic) Skin/Breast Denies rash Neuro Reports dizziness (occasionally, most unchanged from previous), Reports headache(s) (on and off as before) and Denies paresthesias Psych Reports anxiety (increased) and Reports depression Endo Reports fatigue (chronic) and Denies palpitations Josh/Lymph Denies easy bruising Aller/Immun Denies wheezing Physical exam (Primary Care) Vital Signs: Last Vital Signs Pulse 77 01/01/24 15:45 BP 120/76 01/01/24 15:45 Pulse Ox 97 01/01/24 15:45 Oxygen Delivery Method Room Air 01/01/24 15:45 BMI result Body Mass Index 26.4 Tobacco/Smoking Status: Tobacco use Status Tobacco use date assessed 01/01/24 01/01/24 15:53 Patient Tobacco Use Status Never used Tobacco 01/01/24 15:53 e-Cigarette/Vaping Use Never Used 01/01/24 15:53 Thrive Assessment: Date of Thrive Assessment Date Thrive assessed 09/29/23 01/01/24 15:53 Const General: no acute distress and alert HENMT Ears: TM's normal bilaterally and EAC's normal Throat: Yes posterior oropharynx normal and Yes tonsils normal (no TP congestion) Neck Neck: Yes no lymphadenopathy and Yes supple Thyroid: Thyroid normal Resp Auscultation: clear to auscultation bilaterally, no rales and no wheezes Cardio Rate: regular rate Rhythm: regular rhythm Heart sounds: no murmurs GI Palpation (GI): Soft to palpation and nontender Auscultation: normal bowel sounds General: Yes no CVA tenderness Back/Spine/Pelvis Other: (+) tenderness over the midthoracic spine along the interscapular area Back: no CVA tenderness Cervical Spine: Cervical spine tenderness Thoracic/Lumbar Spine: lumbar spinal tenderness Extrem General: Yes no clubbing, cyanosis or edema Assessment and Plan Assessment & Plan (1) Fibromyalgia: Code(s): M79.7 - Fibromyalgia Plan: Her most recent thoracic spine x-rays done in [facility] in January 2023 revealed only (+) mild multilevel degenerative changes at the mid-thoracic spine Continue Pregabalin 50 mg TID (2) Ear pain: Code(s): H92.09 - Otalgia, unspecified ear Qualifiers: Laterality: bilateral Qualified Code(s): H92.03 - Otalgia, bilateral Plan: Patient has been complaining of frequent/persistent ear pain/congestion/discomfort for the past few years and these have not responded so far to empiric Abx Tx as well as trials of antihistamines and decongestants Suspect that she may possibly have some type of eustachian tube disorder Will her to ENT for further evaluation and management She was also previously referred to ENT but states that she was never contacted to schedule an appointment or seen (3) Peripheral neuropathy: Code(s): G62.9 - Polyneuropathy, unspecified Qualifiers: Peripheral neuropathy type: polyneuropathy, unspecified Qualified Code (s): G62.9 - Polyneuropathy, unspecified Plan: EMG and NCV done a few months ago revealed (+) mild to moderate peripheral sensory neuropathy Continue Pregabalin 50 mg TID; she was not able to tolerate Gabapentin due to dizziness Will send her for some follow-up labs VIKY (4) Asthma: Code(s): J45.909 - Unspecified asthma, uncomplicated Qualifiers: Asthma severity: mild Asthma persistence: persistent Asthma complication type: uncomplicated Qualified Code(s): J45.30 - Mild persistent asthma, uncomplicated Plan: Stable lately Continue Qvar Redihaler 80 mcg 1 inhalation BID and Albuterol HFA 2 inhalations every 6 hours as needed (5) Allergic rhinitis: Code(s): J30.9 - Allergic rhinitis, unspecified Qualifiers: Allergic rhinitis trigger: unspecified Allergic rhinitis seasonality: unspecified Qualified Code(s): J30.9 - Allergic rhinitis, unspecified Plan: Follow up with [facility] for her allergies as scheduled Continue Fexofenadine 180 mg QD PRN (6) Acquired hypothyroidism: Code(s): E03.9 - Hypothyroidism, unspecified Plan: Has Evelyn's thyroiditis and is seeing Dr. Carlton for endocrinology follow up regularly Continue Levothyroxine 100 mcg QD (7) Osteoporosis: Code(s): M81.0 - Age-related osteoporosis without current pathological fracture Qualifiers: Osteoporosis type: age-related Presence of current pathological fracture: without current pathological fracture Qualified Code(s): M81.0 - Age- related osteoporosis without current pathological fracture Plan: Continue Prolia injections every 6 months Follow up with endocrinology as scheduled - is now seeing Dr. Carlton at [facility] (8) Irritable bowel syndrome with constipation: Code(s): K58.1 - Irritable bowel syndrome with constipation Plan: Reinforced increased oral fluids and dietary fiber Continue Dicyclomine PRN Has been tried on multiple medications in the past for her constipation with limited relief, including Trulance and Amitiza She continues to follow up with GI out of [facility] via telehealth visits and is now back on Linzess 290 mcg QD (9) Insomnia: Code(s): G47.00 - Insomnia, unspecified Qualifiers: Insomnia type: unspecified Qualified Code(s): G47.00 - Insomnia, unspecified Plan: Sleep hygiene reinforced She is currently still taking Trazodone 300 mg Q HS PRN but she has been advised to try to slowly cut back on her dosage since it does not appear to be helping Cautioned that her Trazodone may also be contributing to her recent increasing anxiety and depression She was tried on Mirtazapine at bedtime, which she states did not help and she has since stopped taking the medication Would like to try Zolpidem again - is advised that we can start her back on Zolpidem but she should STOP taking Trazodone as we generally do not recommend patients be on BOTH Rx (10) ADD (attention deficit disorder): Code(s): F98.8 - Other specified behavioral and emotional disorders with onset usually occurring in childhood and adolescence Qualifiers: Hyperactivity presence: unspecified Qualified Code(s): F98.8 - Other specified behavioral and emotional disorders with onset usually occurring in childhood and adolescence Plan: Per request, will try starting her back on Methylphenidate ER 36 mg QD in AM (11) Anxiety: Code(s): F41.9 - Anxiety disorder, unspecified Plan: Continue Lorazepam 1 mg Q HS PRN Was also on Buspirone 5 mg BID previously but patient stop taking Rx a while back as she felt that it was not helping She was previously started back on Bupropion XL 150 mg QD, with her dose subsequently increased to 300 mg QD but she states that it did not help and she also stopped taking it a while back She is now on fluoxetine 20 mg QD, which she is not sure if it is helping or not (12) Depression: Comment: most likely has bipolar depression Code(s): F32.9 - Major depressive disorder, single episode, unspecified Qualifiers: Depression Type: major depressive disorder Major depression recurrence: recurrent Active/Remission status: currently active Major depression episode severity: unspecified Qualified Code(s): F33.9 - Major depressive disorder, recurrent, unspecified Plan: She used to take Venlafaxine 37.5 mg but stopped taking it a few months ago as she felt that the medication was making her more constipated and aggravating her trouble sleeping at night although she admits that none of these got significantly better when she stopped taking her Venlafaxine She was also on Bupropion XL 300 mg QD and Mirtazapine 15 mg Q HS but she also ended up self discontinuing the medications as she felt that they were not helping Is currently on Fluoxetine 20 mg QD Due to her significant mood disorder and the complexity of her issues (compounded by her propensity to self discontinue her medications and her tendency to request for her own choice of medications or treatment based on her own research), we have tried referring her to Psychiatry multiple times in the past but she states that she still has not been able to get established with a psychiatrist Will try referring her to the Psychiatry outpatient clinic that was recently established here in [place] to get her started (13) Overweight (BMI 25.0-29.9): Code(s): E66.3 - Overweight Plan: Reinforced diet; her exercise and weight loss options may be limited due to her current physical issues and comorbidities Patient wanted to try Qsymia previously but insurance would not cover Rx She was advised that she would also not be a good candidate for Phentermine as she is on Concerta for her ADD Plan Follow up in 4 months Orders: Orders Complete Blood Count Auto Diff 01/01/24 D64.9 - Anemia, unspecified Comprehensive [place]. Panel Fast 01/01/24 E78.00 - Pure hypercholesterolemia, unspecified Lipid Panel 01/01/24 E78.00 - Pure hypercholesterolemia, unspecified UA CC w/rflx Micro + Cult 01/01/24 R30.0 - Dysuria Vitamin D 25-OH Total 01/01/24 E55.9 - Vitamin D deficiency, unspecified Vitamin B12 and Folate 01/01/24 E53.8 - Deficiency of other specified B group vitamins Referrals Ear/Nose/Throat Referral H92.03 - Otalgia, bilateral Psychiatry Outpatient Consultation Service F41.9 - Anxiety disorder, unspecified, F98.8 - Other specified behavioral and emotional disorders with onset usually occurring in childhood and adolescence Medications: New methylphenidate HCl ER 36 mg PO DAILY 15 tabs 0RF F98.8 - Other specified behavioral and emotional disorders with onset usually occurring in childhood and adolescence Refilled zolpidem 10 mg PO BEDTIME 30 days PRN 30 tabs 0RF sleep riboflavin (vitamin B2) 100 mg PO DAILY 90 days 90 tabs 1RF zolpidem 10 mg PO BEDTIME 30 days PRN 30 tabs 0RF sleep riboflavin (vitamin B2) 100 mg PO DAILY 90 days 90 tabs 1RF Coding Level of Care Code Est Pt Level 4 (32505) Diagnoses Fibromyalgia M79.7 Otalgia of both ears H92.03 Laterality: bilateral Peripheral polyneuropathy G62.9 Peripheral neuropathy type: polyneuropathy, unspecified Mild persistent asthma without complication J45.30 Asthma severity: mild Asthma persistence: persistent Asthma complication type: uncomplicated Allergic rhinitis, unspecified seasonality, unspecified trigger J30.9 Allergic rhinitis trigger: unspecified Allergic rhinitis seasonality: unspecified Acquired hypothyroidism E03.9 Age-related osteoporosis without current pathological fracture M81.0 Osteoporosis type: age-related Presence of current pathological fracture: without current pathological fracture Irritable bowel syndrome with constipation K58.1 Insomnia, unspecified type G47.00 Insomnia type: unspecified Attention deficit disorder, unspecified hyperactivity presence F98.8 Hyperactivity presence: unspecified Anxiety F41.9 Episode of recurrent major depressive disorder, unspecified depression episode severity F33.9 Depression Type: major depressive disorder Major depression recurrence: recurrent Active/Remission status: currently active Major depression episode severity: unspecified Overweight (BMI 25.0-29.9) E66.3
[2024-01-01 15:45] VITALS: BP 120/76; PULSE 77; O2SAT 97; BMI 26.4
== END 2024-01-01 16:41 | disposition home or self-care (01) ==
PROVIDERS: PCP Internal Medicine; Visit Provider Internal Medicine
DX: M79.7 Fibromyalgia (principal); H92.03 Otalgia, bilateral; G62.9 Polyneuropathy, unspecified; F33.9 Major depressive disorder, recurrent, unspecified; J45.30 Mild persistent asthma, uncomplicated; J30.9 Allergic rhinitis, unspecified; E03.9 Hypothyroidism, unspecified; M81.0 Age-related osteoporosis without current pathological fracture; K58.1 Irritable bowel syndrome with constipation; G47.00 Insomnia, unspecified; F98.8 Other specified behavioral and emotional disorders with onset usually occurring in childhood and adolescence; F41.9 Anxiety disorder, unspecified; E66.3 Overweight
CPT/HCPCS: 99214

== ENCOUNTER 2024-02-05 08:52 | Outpatient (REF) | payer OTHER, MEDICAID, SELFPAY ==
[2024-02-05 10:52] LABS: Estimated Average Glucose 103 mg/dL; Hemoglobin A1c % 5.2 % (<6.0)
[2024-02-05 11:41] LABS: Beta-Hydroxybutyrate 0.07 mmol/L (0.02-0.27)
[2024-02-05 11:56] LABS: Insulin 6 uU/mL (2-29)
[2024-02-06 08:49] LABS: C Peptide 2.02 ng/mL (0.80-3.85)
[2024-02-08 00:23] LABS: TS Negative Control Passed; TS Panel A 0; TS Panel B 0; TS Positive Control Passed; TSpotTB Negative (Negative)
[2024-02-15 03:29] LABS: Insulin Auto Antibody <0.4 U/mL (<0.4)
[2024-02-19 14:34] LABS: IGF-1 (Somatomedin C) 110 ng/mL (41-279); IGF-1 Z Score (Female) -0.2 SD (-2.0 - +2.0)
[2024-02-21 23:33] LABS: Proinsulin 7.2 pmol/L (< OR = 18.8)
[2024-02-22 17:58] LABS: Insulin Growth Factor 2 583 ng/mL (267-616)
[2024-03-11 07:48] LABS: Chlorpropamide None Detected; Glimepiride None Detected; Glipizide None Detected; Glyburide None Detected; Nateglinide None Detected; Pioglitazone None Detected; Repaglinide None Detected; Rosiglitazone None Detected; Tolazamide None Detected; Tolbutamide None Detected
== END 2024-02-05 08:53 | disposition home or self-care (01) ==
LOC: HO.LAB 08:52
PROVIDERS: PCP Internal Medicine; Visit Provider Internal Medicine Endocrinology, Diabetes & Metabolism
DX: Z11.1 Encounter for screening for respiratory tuberculosis (principal); E16.2 Hypoglycemia, unspecified
CPT/HCPCS: 36415; 80337; 82010; 83036; 83525; 83789; 84206; 84305; 84681; 86337; 86481

== ENCOUNTER → 2024-05-03 16:51 | Outpatient (AMB) | payer OTHER, MEDICAID, SELFPAY ==
[2024-05-03 16:51] VITALS: BP 122/74; PULSE 86; O2SAT 96; BMI 24.7
--- NOTE | 2024-05-03 16:51 | A.OFFPC_ITS ---
Vital Signs 05/03/24 16:51 Height 5 ft 2 in Weight 135 lb BMI 24.7 BP 122/74 Blood Pressure Location Lt brachial Position Sitting Pulse 86 Pulse Source Pulse Oximeter Pulse Oximetry (%) 96 Oxygen Delivery Method Room Air Intake Visit Reasons: 4 month f/u Intake Note: Pt has been taking doxycycline since April and states she still has a long way to go. 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 Required: No Accompanied by: Self / Same As Patient Allergies codeine Allergy (Unknown, Verified 05/03/24 17:12) Unknown Sulfa (Sulfonamide Antibiotics) Allergy (Unknown, Verified 05/03/24 17:12) hives (Sulfa), hives sulfacetamide [From Sulfacet-R] Allergy (Unknown, Verified 05/03/24 17:12) Hives sulfur [From Sulfacet-R] Allergy (Unknown, Verified 05/03/24 17:12) Hives frutose, galatose, synthetic s Allergy (Unknown, Uncoded 05/03/24 17:12) nausea and vomiting gabapentin Adverse Reaction (Intermediate, Uncoded 05/03/24 17:12) dizziness Medication List - Last Reconciled 05/03/24 by Chris Huff MD albuterol sulfate 90 mcg/actuation 1 inh inhalation .Q 4 hours PRN beclomethasone dipropionate 80 mcg/actuation (QNASL) 2 sprays intranasal DAILY PRN 30 days doxycycline hyclate 100 mg PO BID epinephrine IM fenofibrate nanocrystallized 48 mg PO DAILY 90 days fexofenadine (Lynne Allergy) 180 mg PO DAILY fluoxetine 20 mg PO DAILY 30 days ibuprofen 800 mg PO DAILY PRN levothyroxine 100 mcg PO DAILY 90 days linaclotide (Linzess) 290 mcg PO DAILY lorazepam 1 mg PO BEDTIME PRN 30 days methylphenidate HCl ER 36 mg PO DAILY orlistat 120 mg PO TID pantoprazole 40 mg PO BID PRN polyethylene glycol 3350 17 grams PO DAILY pregabalin 50 mg PO BID 30 days riboflavin (vitamin B2) 100 mg PO DAILY 90 days simethicone (Gas Relief (simethicone)) 125 mg PO TID-QID PRN thiamine mononitrate (vit B1) 100 mg PO DAILY 90 days trazodone 300 mg (3 x 100 mg) PO BEDTIME PRN 90 days triamcinolone acetonide 0.1% topical BID zolpidem 10 mg PO BEDTIME PRN 30 days Tobacco use date assessed: 01/01/24 Dental Screening Dental Screen Date: 09/29/23 HPI 4 month f/u HPI Details Patient comes in today for her follow up visit She again has multiple issues to discuss and go over States that she would like to try going back on Venlafaxine again as she feels that Fluoxetine is making her more constipated She apparently thought the same thing with Venlafaxine before when she was switched out from that Rx She was previously referred to [facility] but she never received any call from [facility] States that she tried reaching out to them a few weeks ago but was supposedly advised that they never received a referral from us States that she reached out to the ENT practice in [place], [place] that she was referred to previously for an appointment but was also supposedly advised that they never received a referral from us States that she continues to experience frequent/recurrent headaches and is concerned that she is taking too many Ibuprofen She has not seen neurology in a while now - states that she tried to see Dr. Berenice Espana in [place] but states that for unclear reasons, they would not give her an appointment She denies any chest pains, no increased SOB No nausea/vomiting, no abdominal pain No change in bowel habits noted Needs several of her Rx refilled, including her Orlistat, which she was told needed a PA done by her PCP States that she continues to see Dr. Carlton for her osteoporosis and is now on Prolia twice a year She had her follow up labs done at [facility] back in February 2024 - to discuss her results [facility] Medical History (Updated 05/03/24 @ 19:00 by Chris Huff MD) Anxiety Insomnia Peripheral neuropathy Mixed hyperlipidemia Irritable bowel syndrome with constipation Acquired hypothyroidism Overweight (BMI 25.0-29.9) Migraine Evelyn's thyroiditis DJD (degenerative joint disease) Osteoporosis ADD (attention deficit disorder) Asthma GERD (gastroesophageal reflux disease) Iron (Fe) deficiency anemia Anxiety and depression Depression Chest pain Chronic left ear pain Allergic rhinitis Surgical History H/O abdominoplasty H/O breast augmentation Hx of colonoscopy Hx of esophagogastroduodenoscopy History of surgery History of right breast biopsy History of laparoscopic cholecystectomy Family History Father Lung cancer Mother No problems noted. Sister No problems noted. Son No problems noted. Brother No problems noted. Social History Housing: House Alcohol intake: never Patient Tobacco Use Status: Never used Tobacco Tobacco use type: Cigarette e-Cigarette/Vaping Use: Never Used Second Hand Smoke Exposure: No service: No Current occupational status: employed Cognitive needs: No Hearing needs: No Vision needs: Yes (glasses) Questionnaire Thrive Questionnaire Date Thrive assessed: 09/29/23 KARON-7 AMB Questionnaire KARON-7 Date KARON - 7 assessed: 09/29/23 Source: Developed by Drs. Otilio Sanchez, Zena Almeida, Ray Shen and colleagues, with an educational lyudmila from [employer]. Review of Systems Const Denies chills, Reports difficulty sleeping, Reports fatigue (chronic), Denies fever(s) and Reports headache(s) (frequent) ENT Denies dysphagia, Reports dizziness (occasionally, most unchanged from previous), Reports otalgia (bilateral, chronic), Reports headache(s) (frequent), Reports neck pain (chronic), Denies odynophagia and Denies sore throat Card Denies chest pain, Denies rapid heart rate, Denies irregular heart rhythm, Denies palpitations and Denies dyspnea Resp Denies chest congestion, Denies cough, Denies dyspnea and Denies wheezing GI Denies abdominal pain, Denies constipation, Denies dysphagia, Denies heartburn, Denies diarrhea, Reports nausea (at times - associated with headaches), Denies odynophagia and Denies vomiting Denies urinary frequency, Denies dysuria, Denies urinary incontinence and Denies urinary urgency Musc Reports back pain (especially over her upper back lately, in between her shoulder blades), Reports myalgias (diffuse), Reports arthralgias (involving multiple joints), Denies joint swelling, Denies muscle weakness and Reports neck pain (chronic) Skin/Breast Denies rash Neuro Reports dizziness (occasionally, most unchanged from previous), Reports headache(s) (frequent) and Denies paresthesias Psych Reports anxiety (increased) and Reports depression Endo Reports fatigue (chronic) and Denies palpitations Josh/Lymph Denies easy bruising Aller/Immun Denies wheezing Physical exam (Primary Care) Vital Signs: Last Vital Signs Pulse 86 05/03/24 16:51 BP 122/74 05/03/24 16:51 Pulse Ox 96 05/03/24 16:51 Oxygen Delivery Method Room Air 05/03/24 16:51 BMI result Body Mass Index 24.7 Tobacco/Smoking Status: Tobacco use Status Tobacco use date assessed 01/01/24 05/03/24 16:57 Patient Tobacco Use Status Never used Tobacco 05/03/24 16:57 Tobacco use type Cigarette 05/03/24 16:57 e-Cigarette/Vaping Use Never Used 05/03/24 16:57 Thrive Assessment: Date of Thrive Assessment Date Thrive assessed 09/29/23 05/03/24 16:57 Const General: no acute distress and alert HENMT Ears: TM's normal bilaterally and EAC's normal Throat: Yes posterior oropharynx normal and Yes tonsils normal (no TP congestion) Neck Neck: Yes no lymphadenopathy and Yes supple Thyroid: Thyroid normal Resp Auscultation: clear to auscultation bilaterally, no rales and no wheezes Cardio Rate: regular rate Rhythm: regular rhythm Heart sounds: no murmurs GI Palpation (GI): Soft to palpation and nontender Auscultation: normal bowel sounds General: Yes no CVA tenderness Back/Spine/Pelvis Other: (+) tenderness over the midthoracic spine along the interscapular area Back: no CVA tenderness Cervical Spine: Cervical spine tenderness Thoracic/Lumbar Spine: lumbar spinal tenderness Extrem General: Yes no clubbing, cyanosis or edema Coding Level of Care Code Est Pt Level 4 (49257) Complex EM visit Add On G2211 Diagnoses Fibromyalgia M79.7 Acute midline thoracic back pain M54.6 Back pain location: thoracic back pain Chronicity: acute Back pain laterality: midline Chronic pain of both ears H92.03; G89.29 Laterality: bilateral Peripheral polyneuropathy G62.9 Peripheral neuropathy type: polyneuropathy, unspecified Mild persistent asthma without complication J45.30 Asthma severity: mild Asthma persistence: persistent Asthma complication type: uncomplicated Allergic rhinitis, unspecified seasonality, unspecified trigger J30.9 Allergic rhinitis trigger: unspecified Allergic rhinitis seasonality: unspecified Acquired hypothyroidism E03.9 Age-related osteoporosis without current pathological fracture M81.0 Osteoporosis type: age-related Presence of current pathological fracture: without current pathological fracture Irritable bowel syndrome with constipation K58.1 Insomnia, unspecified type G47.00 Insomnia type: unspecified Attention deficit disorder, unspecified hyperactivity presence F98.8 Hyperactivity presence: unspecified Anxiety F41.9 Episode of recurrent major depressive disorder, unspecified depression episode severity F33.9 Depression Type: major depressive disorder Major depression recurrence: recurrent Active/Remission status: currently active Major depression episode severity: unspecified Overweight (BMI 25.0-29.9) E66.3 Assessment & Plan Assessment & Plan (1) Fibromyalgia: Code(s): M79.7 - Fibromyalgia Category: Medical Plan: Continue Pregabalin 50 mg TID She is again encouraged on regular exercise to help manage her fibromyalgia symptoms better (2) Back pain: Code(s): M54.9 - Dorsalgia, unspecified Category: Medical Qualifiers: Back pain location: thoracic back pain Chronicity: acute Back pain laterality: midline Qualified Code(s): M54.6 - Pain in thoracic spine Plan: Her most recent thoracic spine x-rays done in [facility] in January 2023 revealed only (+) mild multilevel degenerative changes at the mid-thoracic spine (3) Chronic ear pain: Code(s): H92.09 - Otalgia, unspecified ear; G89.29 - Other chronic pain Category: Medical Qualifiers: Laterality: bilateral Qualified Code(s): H92.03 - Otalgia, bilateral; G89.29 - Other chronic pain Plan: Patient has been complaining of frequent/persistent ear pain/congestion/discomfort for the past few years and these have not responded so far to empiric Abx Tx as well as trials of antihistamines and decongestants Suspect that she may possibly have some type of eustachian tube disorder She has been previously referred to ENT a couple of times already but states that she was never contacted to schedule an appointment or seen yet States that she reached out to the ENT practice that she was referred to in [place], [place] recently but was advised that they never received a referral from us - referral printed out again and will have office staff fax this to them directly (4) Peripheral neuropathy: Code(s): G62.9 - Polyneuropathy, unspecified Category: Medical Qualifiers: Peripheral neuropathy type: polyneuropathy, unspecified Qualified Code(s): G62.9 - Polyneuropathy, unspecified Plan: EMG and NCV done a few months ago revealed (+) mild to moderate peripheral sensory neuropathy Continue Pregabalin 50 mg TID - she was not able to tolerate Gabapentin due to dizziness (5) Asthma: Code(s): J45.909 - Unspecified asthma, uncomplicated Category: Medical Qualifiers: Asthma severity: mild Asthma persistence: persistent Asthma complication type: uncomplicated Qualified Code(s): J45.30 - Mild persistent asthma, uncomplicated Plan: Stable lately Continue Qvar Redihaler 80 mcg 1 inhalation BID and Albuterol HFA 2 inhalations every 6 hours as needed (6) Allergic rhinitis: Code(s): J30.9 - Allergic rhinitis, unspecified Category: Medical Qualifiers: Allergic rhinitis trigger: unspecified Allergic rhinitis seasonality: unspecified Qualified Code(s): J30.9 - Allergic rhinitis, unspecified Plan: Continue Fexofenadine 180 mg QD PRN Follow up with [facility] for her allergies as scheduled (7) Acquired hypothyroidism: Code(s): E03.9 - Hypothyroidism, unspecified Category: Medical Plan: She has Evelyn's thyroiditis and is now seeing Dr. Carlton for endocrinology follow up regularly Continue Levothyroxine 100 mcg QD Results of her labs done back in February 2024 at [facility] reviewed and discussed with patient (8) Osteoporosis: Code(s): M81.0 - Age-related osteoporosis without current pathological fracture Category: Medical Qualifiers: Osteoporosis type: age-related Presence of current pathological fracture: without current pathological fracture Qualified Code(s): M81.0 - Age-related osteoporosis without current pathological fracture Plan: Continue Prolia injections every 6 months Follow up with endocrinology as scheduled - is now seeing Dr. Carlton at [facility] (9) Irritable bowel syndrome with constipation: Code(s): K58.1 - Irritable bowel syndrome with constipation Category: Medical Plan: Reinforced increased oral fluids and dietary fiber Continue Dicyclomine PRN Has been tried on multiple medications in the past for her constipation with limited relief, including Trulance and Amitiza She continues to follow up with GI out of [facility] via telehealth visits and is now back on Linzess 290 mcg QD (10) Insomnia: Code(s): G47.00 - Insomnia, unspecified Category: Medical Qualifiers: Insomnia type: unspecified Qualified Code(s): G47.00 - Insomnia, unspecified Plan: Sleep hygiene reinforced Continue Zolpidem 10 mg Q HS PRN (11) ADD (attention deficit disorder): Code(s): F98.8 - Other specified behavioral and emotional disorders with onset usually occurring in childhood and adolescence Category: Medical Qualifiers: Hyperactivity presence: unspecified Qualified Code(s): F98.8 - Other specified behavioral and emotional disorders with onset usually occurring in childhood and adolescence Plan: Continue Methylphenidate ER 36 mg QD in AM - Rx refilled Have discussed with patient that staying on this Rx as she gets older can increase her cardiovascular risks and she should start considering other alternative options to cope with her ADD symptoms going forward without the use of Rx stimulants (12) Anxiety: Code(s): F41.9 - Anxiety disorder, unspecified Category: Medical Plan: Continue Lorazepam 1 mg Q HS PRN Was also on Buspirone 5 mg BID previously but patient stop taking Rx a while back as she felt that it was not helping She was previously started back on Bupropion XL 150 mg QD, with her dose subsequently increased to 300 mg QD but she states that it did not help and she also stopped taking it a while back She is now on Fluoxetine 20 mg QD but she is not sure if it is helping; feels that the Rx is also causing her to feel more constipated and would like to try switching back to Venlafaxine (13) Depression: Comment: most likely has bipolar depression Code(s): F32.9 - Major depressive disorder, single episode, unspecified Category: Medical Qualifiers: Depression Type: major depressive disorder Major depression recurrence: recurrent Active/Remission status: currently active Major depression episode severity: unspecified Qualified Code(s): F33.9 - Major depressive disorder, recurrent, unspecified Plan: She used to take Venlafaxine 37.5 mg but stopped taking it a few months ago as she felt that the medication was making her more constipated and aggravating her trouble sleeping at night although she admits that none of these got significantly better when she stopped taking her Venlafaxine She was also on Bupropion XL 300 mg QD and Mirtazapine 15 mg Q HS but she also ended up self discontinuing the medications as she felt that they were not helping Is currently on Fluoxetine 20 mg QD but now wants to try switching back to Venlafaxine Due to her significant mood disorder and the complexity of her issues (compounded by her propensity to self discontinue her medications and her tendency to request for her own choice of medications or treatment based on her own research), we have tried referring her to Psychiatry multiple times in the past but she states that she still has not been able to get established with a psychiatrist We also tried referring her to the Psychiatry outpatient clinic here in [place] previously to get her started but for unclear reasons, she was not seen States that she tried reaching out to [facility] here but was again advised that they did not receive a referral from us?!?!? Will try referring her again to [facility] for psychiatry management (14) Overweight (BMI 25.0-29.9): Code(s): E66.3 - Overweight Category: Medical Plan: Reinforced diet; her exercise and weight loss options may be limited due to her current physical issues and comorbidities Patient wanted to try Qsymia previously but insurance would not cover Rx She was advised that she would also not be a good candidate for Phentermine as she is on Methylphenidate for her ADD She is currently on Orlistat but is now requesting for Rx and PA for this to be done Plan Follow up in 4 months - she is advised to get her follow up labs ordered today done BEFORE her next appointment Orders: Orders Free T4 (Free Thyroxine) 4 Months E03.9 - Hypothyroidism, unspecified Thyroid Stimulating Hormone 4 Months E03.9 - Hypothyroidism, unspecified UA CC w/rflx Micro + Cult 4 Months R30.0 - Dysuria Vitamin B12 and Folate 4 Months E53.8 - Deficiency of other specified B group vitamins Complete Blood Count Auto Diff 4 Months D64.9 - Anemia, unspecified Comprehensive [place]. Panel Fast 4 Months E78.00 - Pure hypercholesterolemia, unspecified Lipid Panel 4 Months E78.00 - Pure hypercholesterolemia, unspecified Hemoglobin A1c 4 Months E11.9 - Type 2 diabetes mellitus without complications Vitamin D 25-OH Total 4 Months E55.9 - Vitamin D deficiency, unspecified Referrals Psychiatry Referral F32.9 - Major depressive disorder, single episode, unspecified, F41.9 - Anxiety disorder, unspecified Neurology Referral R51.9 - Headache, unspecified Medications: New venlafaxine 37.5 mg PO DAILY 30 days 30 tabs 0RF Refilled lorazepam 1 mg PO BEDTIME 30 days PRN 30 tabs 0RF anxiety F41.1 - Generalized anxiety disorder methylphenidate HCl ER 36 mg PO DAILY 15 tabs 0RF F98.8 - Other specified behavioral and emotional disorders with onset usually occurring in childhood and adolescence orlistat administer during or up to 1 hour after meal 120 mg PO TID 90 caps 3RF fenofibrate nanocrystallized 48 mg PO DAILY 90 days 90 tabs 1RF Discontinued fluoxetine Take 1/2 tablet (10 mg) QD x 7 days, then 1 tablet (20 mg ) QD Discontinued Reason: Doctor's Order 20 mg PO DAILY 30 days 30 tabs 3RF
== END ==
LOC: HO.HMCH 16:51
PROVIDERS: PCP Internal Medicine; Visit Provider Internal Medicine
DX: M79.7 Fibromyalgia (principal); F33.9 Major depressive disorder, recurrent, unspecified; M54.6 Pain in thoracic spine; H92.03 Otalgia, bilateral; G89.29 Other chronic pain; G62.9 Polyneuropathy, unspecified; J45.30 Mild persistent asthma, uncomplicated; J30.9 Allergic rhinitis, unspecified; E03.9 Hypothyroidism, unspecified; M81.0 Age-related osteoporosis without current pathological fracture; K58.1 Irritable bowel syndrome with constipation; G47.00 Insomnia, unspecified

== ENCOUNTER → 2024-05-03 16:51 | Outpatient (BNVA) | payer OTHER, MEDICAID, SELFPAY | PROVIDERS: PCP Internal Medicine; Visit Provider Internal Medicine ==

== ENCOUNTER 2024-09-17 07:34 | Outpatient (REF) | payer BC, SELFPAY ==
[2024-09-17 11:20] LABS: MANUAL DIFF FLAG NO
[2024-09-17 11:31] LABS: Basophils Percent Auto 0.8 % (0-2); Eosinophils Absolute Auto 0.2 X10*3/uL (0.0-0.4); Eosinophils Percent Auto 3.8 % (0-4); Hematocrit 35.8 % (37.0-47.0); Hemoglobin 11.9 g/dl (12.0-16.0); Lymphocytes Percent Auto 51.8 % (20-40); Mean Corpuscular HGB Conc 33.2 g/dl (31.0-35.0); Mean Corpuscular Hemoglobin 31.6 pg (27.0-33.0); Mean Platelet Volume 10.1 fL (9.4-12.3); Monocytes Absolute Auto 0.4 X10*3/uL (0.1-1.2); Monocytes Percent Auto 9.9 % (2-11); Neutrophils Absolute Auto 1.3 x10*3/uL (2.0-8.3); Neutrophils Percent Auto 33.7 % (45-73); Platelet Count 277 X10*3/uL (160-400); Red Blood Count 3.77 X10*6/uL (4.20-5.50); Red Cell Distribution Width 12.2 % (11.0-16.0); White Blood Count 3.9 X10*3/uL (4.8-10.8)
[2024-09-17 11:38] LABS: Estimated Average Glucose 105 mg/dL; Hemoglobin A1c % 5.3 % (<6.0)
[2024-09-17 11:50] LABS: Alanine Aminotransferase 21 U/L (0-31); Albumin Level 4.2 g/dL (3.5-5.0); Alkaline Phosphatase 33 U/L (39-117); Anion Gap 10 (12-20); Aspartate Amino Transferase 26 U/L (5-31); Bilirubin Total 0.3 mg/dL (0.0-1.0); Blood Urea Nitrogen 14 mg/dL (9-16); Calcium 9.4 mg/dL (8.4-10.2); Carbon Dioxide 28 mmol/L (22-29); Chloride 108 mmol/L (96-108); Cholesterol 147 mg/dL (<200); Estimated Glomerular Filt Rate > 60; Glucose Fasting 81 mg/dL (60-99); HDL Cholesterol 44 mg/dL (>40); LDL Cholesterol Calculated 79 mg/dL (<100); Potassium 4.2 mmol/L (3.3-5.1); Sodium 142 mmol/L (135-145); Total Protein 7.1 g/dL (6.5-8.0); Triglycerides 124 mg/dL (<150)
[2024-09-17 12:09] LABS: Free T4 (Free Thyroxine) 0.93 ng/dL (0.71-1.85); Thyroid Stimulating Hormone 9.16 uIU/mL (0.32-4.0); Vitamin D 25-OH Total 125.7 ng/mL (>30)
[2024-09-17 12:12] LABS: Folate 13.4 ng/mL (> or = 4.0); Vitamin B12 1107 pg/mL (200-900)
[2024-09-17 15:19] LABS: Appearance Urine Clear; Color Urine Yellow; Glucose Urine UA Negative (Negative); Leukocyte Esterase Urine Negative (Negative); Nitrite Urine Negative (Negative); Urine Blood Negative (Negative); Urine Ketones Negative (Negative); Urine Protein Negative (Neg-Trace)
== END 2024-09-17 07:35 | disposition home or self-care (01) ==
LOC: HO.WFDLDS 07:34
PROVIDERS: Visit Provider Internal Medicine
DX: E03.9 Hypothyroidism, unspecified (principal); D64.9 Anemia, unspecified; E78.00 Pure hypercholesterolemia, unspecified; E11.9 Type 2 diabetes mellitus without complications; R30.0 Dysuria; E55.9 Vitamin D deficiency, unspecified; E53.8 Deficiency of other specified B group vitamins
CPT/HCPCS: 36415; 80053; 80061; 81003; 82306; 82607; 82746; 83036; 84439; 84443; 85025

== ENCOUNTER 2024-09-23 13:46 | Outpatient (AMB) | payer BC, SELFPAY ==
[2024-09-23 13:48] VITALS: BP 120/78; PULSE 74; O2SAT 98; BMI 24.2
--- NOTE | 2024-09-23 13:48 | A.OFFPC_ITS ---
Vital Signs 09/23/24 13:48 Height 5 ft 2 in Weight 132 lb 2 oz BMI 24.2 BP 120/78 Blood Pressure Location Lt brachial Position Sitting Pulse 74 Pulse Source Pulse Oximeter Pulse Oximetry (%) 98 Oxygen Delivery Method Room Air Intake Visit Reasons: physical Socially Responsible Investment Adviser Required: No Accompanied by: Self / Same As Patient Allergies codeine Allergy (Unknown, Verified 09/23/24 14:44) Unknown Sulfa (Sulfonamide Antibiotics) Allergy (Unknown, Verified 09/23/24 14:44) hives (Sulfa), hives sulfacetamide [From Sulfacet-R] Allergy (Unknown, Verified 09/23/24 14:44) Hives sulfur [From Sulfacet-R] Allergy (Unknown, Verified 09/23/24 14:44) Hives frutose, galatose, synthetic s Allergy (Unknown, Uncoded 09/23/24 14:44) nausea and vomiting gabapentin Adverse Reaction (Intermediate, Uncoded 09/23/24 14:44) dizziness Medication List - Last Reconciled 09/23/24 by Chris Huff MD albuterol sulfate 90 mcg/actuation 1 inh inhalation .Q 4 hours PRN beclomethasone dipropionate 80 mcg/actuation (QNASL) 2 sprays intranasal DAILY PRN 30 days doxycycline hyclate 100 mg PO BID epinephrine IM fenofibrate nanocrystallized 48 mg PO DAILY 90 days fexofenadine (Lynne Allergy) 180 mg PO DAILY fluconazole 150 mg PO Q3D 2 doses glycopyrronium tosylate 2.4% (Qbrexza) 1 appl topical DAILY 30 days ibuprofen 800 mg PO DAILY PRN levothyroxine 75 mcg PO DAILY linaclotide (Linzess) 290 mcg PO DAILY lorazepam 1 mg PO BEDTIME PRN 30 days methylphenidate HCl ER 36 mg PO DAILY orlistat 120 mg PO TID pantoprazole 40 mg PO BID PRN polyethylene glycol 3350 17 grams PO DAILY pregabalin 50 mg PO BID 30 days riboflavin (vitamin B2) 100 mg PO DAILY 90 days simethicone (Gas Relief (simethicone)) 125 mg PO TID-QID PRN thiamine mononitrate (vit B1) 100 mg PO DAILY 90 days trazodone 300 mg (3 x 100 mg) PO BEDTIME PRN 90 days triamcinolone acetonide 0.1% topical BID venlafaxine 37.5 mg PO DAILY 30 days zolpidem 10 mg PO BEDTIME PRN 30 days Tobacco use date assessed: 09/23/24 Dental Screening Dental Screen Date: 09/23/24 Did you have a dental visit in the last 12 months?: Yes Did you have a dental problem in the last 6 months where you did not have access to dental care?: No Was dental information given to patient?: Patient has dentist HPI physical HPI Details Patient comes in today for her annual physical examination States that she continues to experience frequent/recurrent bilateral ear pains (worse on the left side) and recurrent sore throat She has been referred to ENT multiple times in the past, to multiple ENT practices across the [facility], including ENT in [place], in [place], [place] and to [facility], but for unclear reasons, she has never been formally seen States that she was advised by someone she talked to a while ago that she will need to have some allergy testing done when she sees ENT but again, she does not appear to have been seen by any of the practices that she has been referred to over the past 2 to 3 years States that she would like to have a referral placed again to ENT in [place], [place] and she will try to call them on her own to schedule her appointment She denies any fever,; states that she still has on and off headaches and dizziness Denies any chest pains, no increased shortness of breath No nausea/vomiting, no abdominal pain No change in bowel habits noted - she is still experiencing frequent constipation and would like to get started back on Linzess to help with her constipation She denies any acute urinary symptoms Adds that she has been experiencing increased depression again lately and would like to be started back on some medications to help with her mood Recalls that she was on Fluoxetine most recently and thinks that she did well with Rx but would like to try starting on Venlafaxine this time She has also not been able to get in with Psychiatry over the past couple of years regardless of the referrals that we have made out for her Recalls that she was contacted by someone a few months ago but she was not in a private setting at the time, she could not really talk to them and asked to be called back but states that she never received another call again from the person who contacted her States that she has tried to reach out to the person who called her and left a message asking for a call back but states that she was never contacted again since She also needs a couple of her Rx refilled She had her follow up labs done last week - to discuss her results She is currently up-to-date with her cancer screenings - her last mammogram was done in January 2024 at [facility] She had her last pap smear and 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 Francis and she was recommended to get a repeat colonoscopy in 5 years (2025) Her last BMD was done in the summer of 2022 [facility] Medical History (Updated 09/24/24 @ 02:15 by Chris Huff MD) Anxiety Insomnia Peripheral neuropathy Mixed hyperlipidemia Irritable bowel syndrome with constipation Acquired hypothyroidism Overweight (BMI 25.0-29.9) Migraine Evelyn's thyroiditis DJD (degenerative joint disease) Osteoporosis ADD (attention deficit disorder) Asthma GERD (gastroesophageal reflux disease) Iron (Fe) deficiency anemia Anxiety and depression Depression Chest pain Chronic left ear pain Allergic rhinitis Surgical History H/O abdominoplasty H/O breast augmentation Hx of colonoscopy Hx of esophagogastroduodenoscopy History of surgery History of right breast biopsy History of laparoscopic cholecystectomy Family History Father Lung cancer Mother No problems noted. Sister No problems noted. Son No problems noted. Brother No problems noted. Social History Housing: House Alcohol intake: never Patient Tobacco Use Status: Never used Tobacco Tobacco use type: Cigarette e-Cigarette/Vaping Use: Never Used Second Hand Smoke Exposure: No service: No Current occupational status: employed Cognitive needs: No Hearing needs: No Vision needs: Yes (glasses) Questionnaire PHQ-9 Over the last 2 weeks, how often have you been bothered by any of the following problems? 1. Little interest or pleasure in doing things: not at all 2. Feeling down, depressed, or hopeless: not at all 3. Trouble falling or staying asleep, or sleeping too much: not at all 4. Feeling tired or having little energy: more than half the days 5. Poor appetite or overeating: more than half the days 6. Feeling bad about yourself - or that you are a failure or have let yourself or your family down: more than half the days 7. Trouble concentrating on things, such as reading the newspaper or watching television: not at all 8. Moving or speaking so slowly that other people could have noticed. Or the opposite - being so fidgety or restless that you have been moving around a lot more than usual: not at all 9. Thoughts that you would be better off or of hurting yourself in some way: not at all Total score: 6 Depression Screening Interpretation: Positive Depression Screening Follow-up: Existing condition and New Medication prescribed Depression Screening Done: Yes 96759 - PHQ-9 Billing: Yes Source: Developed by Drs. Otilio Sanchez, Zena Almeida, Ray Shen and colleagues, with an educational lyudmila from [employer]. Thrive Questionnaire Date Thrive assessed: 09/23/24 I am a: Patient What is your living situation today?: I choose not to answer this question Within the past 12 months, did the food you bought not last and you didn't have the money to get more?: I choose not to answer this question Within the past 12 months, did you worry whether your food would run out before you got money to buy more?: I choose not to answer this question Do you have trouble paying for medicines?: I choose not to answer this question Do you have trouble getting transportation to medical appointments?: I choose not to answer this question Do you have trouble paying your heating and electricity bill?: I choose not to answer this question Do you have trouble taking care of your child, family member or friend?: I jordy se not to answer this question Do you have trouble with day-to-day activities such as bathing, preparing meals, shopping, managing finances, etc.?: I choose not to answer this question Are you currently unemployed and looking for a job?: I choose not to answer this question Are you interested in more education?: I choose not to answer this question Please select the resources that you would like help with: None Currently or been in a relationship where the following occur: I choose not to answer THRIVE Score: 0 AUDIT C Alcohol Use Questionnaire (AUDIT-C) 1. How often do you have a drink containing alcohol?: Never 3. How often do you have six or more drinks on one occasion?: Never Total Score: 0 Score Reviewed/Action Taken: Yes KARON-7 AMB Questionnaire KARON-7 Date KARON - 7 assessed: 09/23/24 Feeling nervous, anxious, or on edge: 1 = Several days Not being able to stop or control worryin = Not at all Worrying too much about different things: 0 = Not at all Trouble relaxin = Not at all Being so restless that it is hard to sit still: 0 = Not at all Becoming easily annoyed or irritable: 0 = Not at all Feeling afraid as if something awful might happen: 0 = Not at all Total KARON-7 score (0-4 normal; 5-9 mild; 10-14 moderate; 15-21 severe): 1 Source: Developed by Drs. Otilio Sanchez, Zena Almeida, Ray Shen and colleagues, with an educational lyudmila from [employer]. Review of Systems Const Denies chills, Reports difficulty sleeping, Reports fatigue (chronic), Denies fever(s) and Reports headache(s) (on and off) Eyes Denies blurry vision, Denies change in vision, Denies irritation and Denies itchy eyes ENT Denies dysphagia, Reports dizziness (on and off), Reports otalgia (bilateral, chronic), Reports headache(s) (on and off), Reports neck pain (chronic), Denies odynophagia and Reports sore throat (recurrent) Card Denies chest pain, Denies rapid heart rate, Denies irregular heart rhythm, Denies palpitations and Denies dyspnea Resp Denies chest congestion, Denies cough, Denies dyspnea and Denies wheezing GI Denies abdominal pain, Denies constipation, Denies dysphagia, Denies heartburn, Denies diarrhea, Reports nausea (at times - associated with headaches), Denies odynophagia and Denies vomiting Denies urinary frequency, Denies dysuria, Denies urinary incontinence and Denies urinary urgency Musc Reports back pain (especially over her upper back lately, in between her shoulder blades), Reports myalgias (diffuse), Reports arthralgias (involving multiple joints), Denies joint swelling, Denies muscle weakness and Reports neck pain (chronic) Skin/Breast Denies rash Neuro Reports dizziness (on and off), Reports headache(s) (on and off) and Denies paresthesias Psych Reports anxiety, Reports depression (increasing lately) and Reports difficulty concentrating Endo Reports fatigue (chronic) and Denies palpitations Josh/Lymph Denies easy bruising Aller/Immun Denies itchy eyes and Denies wheezing Physical exam (Primary Care) Vital Signs: Last Vital Signs Pulse 74 09/23/24 13:48 BP 120/78 09/23/24 13:48 Pulse Ox 98 09/23/24 13:48 Oxygen Delivery Method Room Air 09/23/24 13:48 BMI result Body Mass Index 24.2 Tobacco/Smoking Status: Tobacco use Status Tobacco use date assessed 09/23/24 09/23/24 13:53 Patient Tobacco Use Status Never used Tobacco 09/23/24 13:53 Tobacco use type Cigarette 09/23/24 13:53 e-Cigarette/Vaping Use Never Used 09/23/24 13:53 PHQ-9: PHQ-9 Score PHQ-9: Total score 6 09/23/24 14:38 Depression Screening Interpretation: Positive Depression Screening Follow-up: Existing condition and New Medication prescribed Thrive Assessment: Date of Thrive Assessment Date Thrive assessed 09/23/24 09/23/24 13:53 Currently or been in a relationship where the following occur: I choose not to answer Const General: no acute distress and alert Orientation/consciousness: patient oriented x3 HENMT Head: Yes normocephalic and Yes atraumatic Ears: TM's normal bilaterally and EAC's normal General nose exam: No nasal discharge present Face and sinus: Yes normal facial exam and Yes sinuses nontender Teeth and gingiva: dentition normal Throat: Yes posterior oropharynx normal and Yes tonsils normal (no TP congestion) Eyes Eyelids: Yes eyelids normal Conjunctivae: conjunctivae normal Pupils: Equal, round and reactive pupils present EOM: EOMs intact bilaterally Neck Neck: Yes supple and No lymphadenopathy Thyroid: Thyroid normal Resp Auscultation: clear to auscultation bilaterally, no rales and no wheezes Cardio Rate: regular rate Rhythm: regular rhythm Heart sounds: no murmurs GI Palpation (GI): Soft to palpation and nontender Auscultation: normal bowel sounds General: Yes no CVA tenderness Back/Spine/Pelvis Other: (+) tenderness over the midthoracic spine along the interscapular area Back: no CVA tenderness Cervical Spine: Cervical spine tenderness Thoracic/Lumbar Spine: lumbar spinal tenderness Skin Lesions: no lesions Rashes: no rashes Neuro General: patient oriented x3, moves all extremities, no focal motor deficits and CN's II-XI intact bilaterally Cranial nerves: Yes Equal, round and reactive pupils present Cognition (Neuro): normal cognition Gait exam (Neuro): Normal gait present Extrem General: Yes no clubbing, cyanosis or edema Results Reviewed Results Reviewed: Laboratory Tests 03/28/22 02/05/24 17:15 09:21 WBC 5.1 Hgb 13.3 Hct 40.0 Plt Count 307 Hemoglobin A1c % 5.2 Rheumatoid Factor 62.3 H Laboratory Tests 09/17/24 09/17/24 09/17/24 07:40 07:48 09:38 WBC 3.9 L Hgb 11.9 L Hct 35.8 L Plt Count 277 Sodium 142 Potassium 4.2 Creatinine 0.76 Estimated GFR > 60 Fasting Glucose 81 Hemoglobin A1c % 5.3 Calcium 9.4 AST 26 ALT 21 Triglycerides 124 Cholesterol 147 LDL Cholesterol, Calc 79 HDL Cholesterol 44 Vitamin B12 1107 H 25-OH Vitamin D Total 125.7 Folate 13.4 TSH 9.16 H Free T4 0.93 Ur Specific [place] 1.020 Urine Protein Negative Urine Glucose (UA) Negative Urine Blood Negative Urine Nitrite Negative Ur Leukocyte Esterase Negative Coding Level of Care Code Est Pt Prev Care 40-64y(84736) Diagnoses Annual physical exam Z00.00 Fibromyalgia M79.7 Acute midline thoracic back pain M54.6 Back pain location: thoracic back pain Chronicity: acute Back pain laterality: midline Chronic pain of both ears H92.03; G89.29 Laterality: bilateral Chronic sore throat J31.2 Peripheral polyneuropathy G62.9 Peripheral neuropathy type: polyneuropathy, unspecified Mild persistent asthma without complication J45.30 Asthma severity: mild Asthma persistence: persistent Asthma complication type: uncomplicated Allergic rhinitis, unspecified seasonality, unspecified trigger J30.9 Allergic rhinitis trigger: unspecified Allergic rhinitis seasonality: unspecified Acquired hypothyroidism E03.9 Age-related osteoporosis without current pathological fracture M81.0 Osteoporosis type: age-related Presence of current pathological fracture: without current pathological fracture Irritable bowel syndrome with constipation K58.1 Insomnia, unspecified type G47.00 Insomnia type: unspecified Attention deficit disorder, unspecified hyperactivity presence F98.8 Hyperactivity presence: unspecified Anxiety F41.9 Episode of recurrent major depressive disorder, unspecified depression episode severity F33.9 Depression Type: major depressive disorder Major depression recurrence: recurrent Active/Remission status: currently active Major depression episode severity: unspecified Additional Codes PHQ-9 - 13584 - PHQ-9 Billing: Yes ([id number]) Assessment & Plan Assessment & Plan (1) Annual physical exam: Code(s): Z00.00 - Encounter for general adult medical examination without abnormal findings Category: Medical Plan: Results of her labs done last week reviewed and discussed with patient She is currently up-to-date with her cancer screenings - her last mammogram was done in January 2024 at [facility] She had her last pap smear and 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 Francis and she was recommended to get a repeat colonoscopy in 5 years (2025) Her last BMD was done in the summer of 2022 (2) Fibromyalgia: Code(s): M79.7 - Fibromyalgia Category: Medical Plan: Continue Pregabalin 50 mg BID She is again encouraged on regular exercises to help manage her fibromyalgia symptoms better (3) Back pain: Code(s): M54.9 - Dorsalgia, unspecified Category: Medical Qualifiers: Back pain location: thoracic back pain Chronicity: acute Back pain laterality: midline Qualified Code(s): M54.6 - Pain in thoracic spine Plan: Her most recent thoracic spine x-rays done in [facility] in January 2023 revealed only (+) mild multilevel degenerative changes at the mid-thoracic spine Reinforced activity and weightlifting restrictions to minimize aggravating her back pains (4) Chronic ear pain: Code(s): H92.09 - Otalgia, unspecified ear; G89.29 - Other chronic pain Category: Medical Qualifiers: Laterality: bilateral Qualified Code(s): H92.03 - Otalgia, bilateral; G89.29 - Other chronic pain Plan: Patient has been complaining of frequent/persistent ear pain/congestion/discomfort for the past few years and these have not responded so far to empiric Abx Tx as well as trials of antihistamines and decongestants Suspect that she may possibly have eustachian tube dysfunction She has been referred to several ENT practices multiple times over the past 2-3 years but for unclear reasons, she was never seen She is requesting another referral to ENT in [place], [place] and states that she would try to contact them on her own to schedule an appointment once the referral is placed (5) Chronic sore throat: Code(s): J31.2 - Chronic pharyngitis Category: Medical Plan: Her throat and ear exam continues to be unremarkable She has been treated empirically with multiple antibiotics over the past few years, with often only temporary relief of her sore throat Suspect that she may have some eustachian tube dysfunction that is contributing to her recurrent sore throat and ear pain and have advised patient that she should see ENT for further evaluation and management of her recurrent sore throat and ear pain (6) Peripheral neuropathy: Code(s): G62.9 - Polyneuropathy, unspecified Category: Medical Qualifiers: Peripheral neuropathy type: polyneuropathy, unspecified Qualified Code(s): G62.9 - Polyneuropathy, unspecified Plan: EMG and NCV done last year revealed (+) mild to moderate peripheral sensory neuropathy Continue Pregabalin 50 mg BID - she was not able to tolerate Gabapentin in the past due to side effects (dizziness) (7) Asthma: Code(s): J45.909 - Unspecified asthma, uncomplicated Category: Medical Qualifiers: Asthma severity: mild Asthma persistence: persistent Asthma complication type: uncomplicated Qualified Code(s): J45.30 - Mild persistent asthma, uncomplicated Plan: Controlled Continue Qvar Redihaler 80 mcg 1 inhalation BID and Albuterol HFA 2 inhalations every 6 hours as needed (8) Allergic rhinitis: Code(s): J30.9 - Allergic rhinitis, unspecified Category: Medical Qualifiers: Allergic rhinitis trigger: unspecified Allergic rhinitis seasonality: unspecified Qualified Code(s): J30.9 - Allergic rhinitis, unspecified Plan: Continue Fexofenadine 180 mg QD PRN Follow up with [facility] for her allergies as scheduled (9) Acquired hypothyroidism: Code(s): E03.9 - Hypothyroidism, unspecified Category: Medical Plan: She has Evelyn's thyroiditis and is now seeing Dr. Carlton for endocrinology follow up regularly Continue Levothyroxine 75 mcg QD - dose appears to have been decreased from her previous [address] Carlton (10) Osteoporosis: Code(s): M81.0 - Age-related osteoporosis without current pathological fracture Category: Medical Qualifiers: Osteoporosis type: age-related Presence of current pathological fracture: without current pathological fracture Qualified Code(s): M81.0 - Age- related osteoporosis without current pathological fracture Plan: Continue Prolia injections every 6 months States that her last BMD was done in the summer of 2022 Follow up with endocrinology as scheduled - is now seeing Dr. Carlton at [facility] (11) Irritable bowel syndrome with constipation: Code(s): K58.1 - Irritable bowel syndrome with constipation Category: Medical Plan: Reinforced increased oral fluids and dietary fiber Continue Dicyclomine PRN She has been tried on multiple medications in the past for her constipation with limited relief, including Trulance and Amitiza She continues to follow up with GI out of [facility] via telehealth visits and would like to go back on Linzess 290 mcg QD at this time - Rx for Linzess sent to pharmacy (12) Insomnia: Code(s): G47.00 - Insomnia, unspecified Category: Medical Qualifiers: Insomnia type: unspecified Qualified Code(s): G47.00 - Insomnia, unspecified Plan: Sleep hygiene reinforced Continue Zolpidem 10 mg Q HS PRN (13) ADD (attention deficit disorder): Code(s): F98.8 - Other specified behavioral and emotional disorders with onset usually occurring in childhood and adolescence Category: Medical Qualifiers: Hyperactivity presence: unspecified Qualified Code(s): F98.8 - Other specified behavioral and emotional disorders with onset usually occurring in childhood and adolescence Plan: Continue Methylphenidate ER 36 mg QD in AM Have discussed again with patient that staying on this Rx as she gets older can increase her cardiovascular risks and she should start considering other alternative options to cope with her ADD symptoms going forward, preferably without the use of any prescription stimulants (14) Anxiety: Code(s): F41.9 - Anxiety disorder, unspecified Category: Medical Plan: Continue Lorazepam 1 mg Q HS PRN She was also on Buspirone 5 mg BID previously but patient stopped taking her Rx a while back as she felt that it was not helping She was previously started back on Bupropion XL 150 mg QD, with her dose subsequently increased to 300 mg QD but she states that it did not help and she also stopped taking it a while back She was most recently on Fluoxetine 20 mg QD but she was not sure if it was helping; recalls feeling that the Rx was also causing her to feel more constipated and she eventually stopped taking Fluoxetine as well and would now like to try going back to Venlafaxine (15) Depression: Comment: most likely has bipolar depression Code(s): F32.9 - Major depressive disorder, single episode, unspecified Category: Medical Qualifiers: Depression Type: major depressive disorder Major depression recurrence: recurrent Active/Remission status: currently active Major depression episode severity: unspecified Qualified Code(s): F33.9 - Major depressive disorder, recurrent, unspecified Plan: She used to take Venlafaxine 37.5 mg but stopped taking it sometime last year as she felt that the medication was making her more constipated and aggravating her trouble sleeping at night although she admits that none of these got significantly better when she stopped taking her Venlafaxine She was also on Bupropion XL 300 mg QD and Mirtazapine 15 mg Q HS but she also ended up self discontinuing the medications as she felt that they were not helping She was most recently on Fluoxetine 20 mg QD but ended up stopping it as well and now wants to try switching back to Venlafaxine Due to her significant mood disorder and the complexity of her issues, compounded by her propensity to self discontinue her medications and her tendency to request for frequent medication changes to her choice of medications or treatments at a given time based on her own research ), we have tried referring her to Psychiatry multiple times in the past but she states that she still has not been able to get established with a psychiatrist We also tried referring her to the Psychiatry outpatient clinic here in [place] previously to get her started but for unclear reasons, she was not seen States that she tried reaching out to [facility] here but was again advised that they did not receive a referral from us?!?!? Will try referring her again (for the ??? time) to [facility] for psychiatry management Have advised patient again that her habit of self managing her own depression and mood disorder is not really advisable and makes it a lot more difficult for anyone, including a psychiatrist, to properly and appropriately treat her Plan Follow up in 4 months Orders: Referrals Psychiatry Referral F31.4 - Bipolar disorder, current episode depressed, severe, without psychotic features, F41.9 - Anxiety disorder, unspecified Ear/Nose/Throat Referral G89.29 - Other chronic pain, H92.03 - Otalgia, bilateral, J03.91 - Acute recurrent tonsillitis, unspecified Medications: New venlafaxine ER 37.5 mg PO BEDTIME 30 days 30 caps 1RF Changed From pantoprazole 40 mg PO DAILY To pantoprazole 40 mg PO DAILY 90 days 90 tabs 1RF From linaclotide (Linzess) 290 mcg PO DAILY To linaclotide (Linzess) 290 mcg PO DAILY 30 days 30 caps 2RF From fluconazole may repeat second dose 72 hrs after first dose if symptoms persist 150 mg PO Q3D 2 tabs 0RF To fluconazole 150 mg PO QWEEK 4 weeks 4 tabs 0RF
== END 2024-09-23 15:16 | disposition home or self-care (01) ==
LOC: HO.HMCH 13:47
PROVIDERS: PCP Internal Medicine; Visit Provider Internal Medicine
DX: Z00.00 Encounter for general adult medical examination without abnormal findings (principal); M79.7 Fibromyalgia; M54.6 Pain in thoracic spine; F33.9 Major depressive disorder, recurrent, unspecified; H92.03 Otalgia, bilateral; G89.29 Other chronic pain; J31.2 Chronic pharyngitis; J45.30 Mild persistent asthma, uncomplicated; G62.9 Polyneuropathy, unspecified; J30.9 Allergic rhinitis, unspecified; E03.9 Hypothyroidism, unspecified; M81.0 Age-related osteoporosis without current pathological fracture

== ENCOUNTER → 2024-09-23 13:46 | Outpatient (BNVA) | payer BC, SELFPAY | PROVIDERS: PCP Internal Medicine; Visit Provider Internal Medicine | DX: Z00.00 Encounter for general adult medical examination without abnormal findings (principal); M79.7 Fibromyalgia; M54.6 Pain in thoracic spine; H92.03 Otalgia, bilateral; G89.29 Other chronic pain; J31.2 Chronic pharyngitis; G62.9 Polyneuropathy, unspecified; J45.30 Mild persistent asthma, uncomplicated; J30.9 Allergic rhinitis, unspecified; E06.3 Autoimmune thyroiditis; M81.0 Age-related osteoporosis without current pathological fracture; K58.1 Irritable bowel syndrome with constipation; G47.00 Insomnia, unspecified; F98.8 Other specified behavioral and emotional disorders with onset usually occurring in childhood and adolescence; F41.9 Anxiety disorder, unspecified; F33.9 Major depressive disorder, recurrent, unspecified; Z79.899 Other long term (current) drug therapy | CPT/HCPCS: 96127 ==

== ENCOUNTER 2025-01-28 12:46 | Outpatient (AMB) | payer BC, SELFPAY ==
[2025-01-28 12:49] VITALS: BP 120/70; PULSE 82; O2SAT 97; BMI 24.4
--- NOTE | 2025-01-28 12:49 | A.OFFPC_ITS ---
Vital Signs 01/28/25 12:49 Height 5 ft 2 in Weight 133 lb 8 oz BMI 24.4 BP 120/70 Blood Pressure Location Lt brachial Position Sitting Pulse 82 Pulse Source Pulse Oximeter Pulse Oximetry (%) 97 Oxygen Delivery Method Room Air Intake Visit Reasons: 4mth f/u Senior Business Process Analyst Required: No Accompanied by: Self / Same As Patient Allergies codeine Allergy (Unknown, Verified 01/28/25 13:29) Unknown Sulfa (Sulfonamide Antibiotics) Allergy (Unknown, Verified 01/28/25 13:29) hives (Sulfa), hives sulfacetamide (From Sulfacet-R) Allergy (Unknown, Verified 01/28/25 13:29) Hives sulfur (From Sulfacet-R) Allergy (Unknown, Verified 01/28/25 13:29) Hives frutose, galatose, synthetic s Allergy (Unknown, Uncoded 01/28/25 13:29) nausea and vomiting gabapentin Adverse Reaction (Intermediate, Uncoded 01/28/25 13:29) dizziness Medication List - Last Reconciled 01/28/25 by Chris Huff MD albuterol sulfate 90 mcg/actuation 1 inh inhalation .Q 4 hours PRN beclomethasone dipropionate 80 mcg/actuation (QNASL) 2 sprays intranasal DAILY PRN 30 days doxycycline hyclate 100 mg PO BID epinephrine IM fenofibrate nanocrystallized 48 mg PO DAILY 90 days fexofenadine (Lynne Allergy) 180 mg PO DAILY fluconazole 150 mg PO QWEEK 4 weeks glycopyrronium tosylate 2.4% (Qbrexza) 1 appl topical DAILY 30 days ibuprofen 800 mg PO DAILY PRN levothyroxine 75 mcg PO DAILY linaclotide (Linzess) 290 mcg PO DAILY 30 days lorazepam 1 mg PO BEDTIME PRN 30 days methylphenidate HCl ER 36 mg PO DAILY orlistat 120 mg PO TID pantoprazole 40 mg PO DAILY 90 days polyethylene glycol 3350 17 grams PO DAILY pregabalin 50 mg PO BID 30 days riboflavin (vitamin B2) 100 mg PO DAILY 90 days simethicone (Gas Relief (simethicone)) 125 mg PO TID-QID PRN thiamine mononitrate (vit B1) 100 mg PO DAILY 90 days trazodone 300 mg (3 x 100 mg) PO BEDTIME PRN 90 days triamcinolone acetonide 0.1% topical BID venlafaxine 37.5 mg PO DAILY 30 days venlafaxine ER 37.5 mg PO DAILY 30 days zolpidem 10 mg PO BEDTIME PRN 30 days Tobacco use date assessed: 01/28/25 Fall risk assessment: No Falls in past year Last assessed Fall Risk: 01/28/25 Dental Screening Dental Screen Date: 01/28/25 Did you have a dental visit in the last 12 months?: Yes Did you have a dental problem in the last 6 months where you did not have access to dental care?: No Was dental information given to patient?: Patient has dentist HPI 4mth f/u HPI Details Patient comes in today for her follow up visit for her hypertension, hyperlipidemia, and thyroid disorder and other multiple issues States that she has been experiencing increasing symptoms of depression and anxiety and would like to go back on her previous Rx of Escitalopram and Buspirone She was switched over to Venlafaxine at her request a few months ago but she reports experiencing increased side effects with Venlafaxine when she started taking it so she stopped it immediately She reports noticing frequent elevated blood pressure readings, currently at 150/100 mmHg and 155/90 mm Hg For her hyperlipidemia - relates (+) history of elevated cholesterol levels that have increased despite medication adherence, possibly due to dietary changes. Thyroid disorder: Recent thyroid tests show normalized TSH levels after previous elevation. Bilateral foot swelling: Reports swelling in both feet, suspected synovial cysts, denies pain. Dry eye syndrome: Experiences dry eyes, advised to consult an salon customer experience specialist. She denies any headaches or dizziness Denies any chest pains, no increased SOB No nausea/vomiting, no abdominal pain No change in bowel habits noted She has no follow up labs done in the past few weeks She is also due for a mammogram - previous referrals were reportedly rejected due to incomplete information. [facility] Medical History Anxiety Insomnia Peripheral neuropathy Mixed hyperlipidemia Irritable bowel syndrome with constipation Acquired hypothyroidism Overweight (BMI 25.0-29.9) Migraine Evelyn's thyroiditis DJD (degenerative joint disease) Osteoporosis ADD (attention deficit disorder) Asthma GERD (gastroesophageal reflux disease) Iron (Fe) deficiency anemia Anxiety and depression Depression Chest pain Chronic left ear pain Allergic rhinitis Surgical History H/O abdominoplasty H/O breast augmentation Hx of colonoscopy Hx of esophagogastroduodenoscopy History of surgery History of right breast biopsy History of laparoscopic cholecystectomy Family History Father Lung cancer Mother No problems noted. Sister No problems noted. Son No problems noted. Brother No problems noted. Social History Housing: House Alcohol intake: never Patient Tobacco Use Status: Never used Tobacco Tobacco use type: Cigarette e-Cigarette/Vaping Use: Never Used Second Hand Smoke Exposure: No service: No Current occupational status: employed Cognitive needs: No Hearing needs: No Vision needs: Yes (glasses) Questionnaire PHQ-9 Over the last 2 weeks, how often have you been bothered by any of the following problems? 1. Little interest or pleasure in doing things: not at all 2. Feeling down, depressed, or hopeless: not at all 3. Trouble falling or staying asleep, or sleeping too much: not at all 4. Feeling tired or having little energy: more than half the days 5. Poor appetite or overeating: more than half the days 6. Feeling bad about yourself - or that you are a failure or have let yourself or your family down: more than half the days 7. Trouble concentrating on things, such as reading the newspaper or watching television: not at all 8. Moving or speaking so slowly that other people could have noticed. Or the opposite - being so fidgety or restless that you have been moving around a lot more than usual: not at all 9. Thoughts that you would be better off or of hurting yourself in some way: not at all Total score: 6 Depression Screening Interpretation: Positive Depression Screening Follow-up: Existing condition, In treatment and Change in Medication Depression Screening Done: Yes 92691 - PHQ-9 Billing: Yes Source: Developed by Drs. Otilio Sanchez, Zena Almeida, Ray Shen and colleagues, with an educational lyudmila from [employer]. Thrive Questionnaire Date Thrive assessed: 01/28/25 I am a: Patient What is your living situation today?: I choose not to answer this question Within the past 12 months, did the food you bought not last and you didn't have the money to get more?: I choose not to answer this question Within the past 12 months, did you worry whether your food would run out before you got money to buy more?: I choose not to answer this question Do you have trouble paying for medicines?: I choose not to answer this question Do you have trouble getting transportation to medical appointments?: I choose not to answer this question Do you have trouble paying your heating and electricity bill?: I choose not to answer this question Do you have trouble taking care of your child, family member or friend?: I choose not to answer this question Do you have trouble with day-to-day activities such as bathing, preparing meals, shopping, managing finances, etc.?: I choose not to answer this question Are you currently unemployed and looking for a job?: I choose not to answer this question Are you interested in more education?: I choose not to answer this question Please select the resources that you would like help with: None Currently or been in a relationship where the following occur: I choose not to answer THRIVE Score: 0 AUDIT C Alcohol Use Questionnaire (AUDIT-C) 1. How often do you have a drink containing alcohol?: Never 3. How often do you have six or more drinks on one occasion?: Never Total Score: 0 Score Reviewed/Action Taken: Yes KARON-7 AMB Questionnaire KARON-7 Date KARON - 7 assessed: 01/28/25 Feeling nervous, anxious, or on edge: 1 = Several days Not being able to stop or control worryin = Not at all Worrying too much about different things: 0 = Not at all Trouble relaxin = Not at all Being so restless that it is hard to sit still: 0 = Not at all Becoming easily annoyed or irritable: 0 = Not at all Feeling afraid as if something awful might happen: 0 = Not at all Total KARON-7 score (0-4 normal; 5-9 mild; 10-14 moderate; 15-21 severe): 1 Source: Developed by Drs. Otilio Sanchez, Zena Almeida, Ray Shen and colleagues, with an educational lyudmila from [employer] Review of Systems Const Denies chills, Reports difficulty sleeping, Reports fatigue (chronic), Denies fever(s) and Denies headache(s) ENT Denies dysphagia, Denies dizziness, Reports otalgia (bilateral, chronic), Denies headache(s), Reports neck pain (chronic), Denies odynophagia and Reports sore throat (recurrent) Card Denies chest pain, Denies rapid heart rate, Denies irregular heart rhythm, Denies palpitations and Denies dyspnea Resp Denies chest congestion, Denies cough, Denies dyspnea and Denies wheezing GI Denies abdominal pain, Denies constipation, Denies dysphagia, Denies heartburn, Denies diarrhea, Reports nausea (at times - associated with headaches), Denies odynophagia and Denies vomiting Denies difficulty voiding, Denies dysuria, Denies urinary incontinence and Denies urinary urgency Musc Reports back pain (especially over her upper back lately, in between her shoulder blades), Reports myalgias (diffuse), Reports arthralgias (involving multiple joints) and Reports neck pain (chronic) Skin/Breast Denies rash Neuro Denies dizziness, Denies headache(s) and Denies paresthesias Psych Reports anxiety, Reports depression (increasing lately) and Reports difficulty concentrating Endo Reports fatigue (chronic) and Denies palpitations Josh/Lymph Denies easy bruising Aller/Immun Denies wheezing Physical exam (Primary Care) Vital Signs: Last Vital Signs Pulse 82 01/28/25 12:49 BP 120/70 01/28/25 12:49 Pulse Ox 97 01/28/25 12:49 Oxygen Delivery Method Room Air 01/28/25 12:49 BMI result Body Mass Index 24.4 Tobacco/Smoking Status: Tobacco use Status Tobacco use date assessed 01/28/25 01/28/25 12:54 Patient Tobacco Use Status Never used Tobacco 01/28/25 12:54 Tobacco use type Cigarette 01/28/25 12:54 e-Cigarette/Vaping Use Never Used 01/28/25 12:54 PHQ-9: PHQ-9 Score PHQ-9: Total score 6 02/05/25 09:26 Depression Screening Interpretation: Positive Depression Screening Follow-up: Existing condition, In treatment and Change in Medication Thrive Assessment: Date of Thrive Assessment Date Thrive assessed 07/29/25 07/29/25 12:54 Currently or been in a relationship where the following occur: I choose not to answer Const General: no acute distress and alert HENMT Ears: TM's normal bilaterally and EAC's normal Throat: Yes posterior oropharynx normal and Yes tonsils normal (no TP con gestion) Neck Neck: Yes supple and No lymphadenopathy Thyroid: Thyroid normal Resp Auscultation: clear to auscultation bilaterally, no rales and no wheezes Cardio Rate: regular rate Rhythm: regular rhythm Heart sounds: no murmurs GI Palpation (GI): Soft to palpation and nontender Auscultation: normal bowel sounds General: Yes no CVA tenderness Back/Spine/Pelvis Other: (+) tenderness over the midthoracic spine along the interscapular area Back: no CVA tenderness Cervical Spine: Cervical spine tenderness Thoracic/Lumbar Spine: lumbar spinal tenderness Skin Rashes: no rashes Extrem General: Yes no clubbing, cyanosis or edema Coding Level of Care Code Est Pt Level 4 (92029) Diagnoses Mild persistent asthma without complication J45.30 Asthma severity: mild Asthma persistence: persistent Asthma complication type: uncomplicated Allergic rhinitis, unspecified seasonality, unspecified trigger J30.9 Allergic rhinitis trigger: unspecified Allergic rhinitis seasonality: unspecified Acquired hypothyroidism E03.9 Age-related osteoporosis without current pathological fracture M81.0 Osteoporosis type: age-related Presence of current pathological fracture: without current pathological fracture Fibromyalgia M79.7 Acute midline thoracic back pain M54.6 Back pain location: thoracic back pain Chronicity: acute Back pain laterality: midline Chronic pain of both ears H92.03; G89.29 Laterality: bilateral Chronic sore throat J31.2 Peripheral polyneuropathy G62.9 Peripheral neuropathy type: polyneuropathy, unspecified Irritable bowel syndrome with constipation K58.1 Insomnia, unspecified type G47.00 Insomnia type: unspecified Attention deficit disorder, unspecified hyperactivity presence F98.8 Hyperactivity presence: unspecified Anxiety F41.9 Episode of recurrent major depressive disorder, unspecified depression episode severity F33.9 Depression Type: major depressive disorder Major depression recurrence: recurrent Active/Remission status: currently active Major depression episode severity: unspecified Additional Codes PHQ-9 - 24053 - PHQ-9 Billing: Yes ([id number]) Assessment & Plan Assessment & Plan (1) Asthma: Code(s): J45.909 - Unspecified asthma, uncomplicated Category: Medical Qualifiers: Asthma severity: mild Asthma persistence: persistent Asthma complication type: uncomplicated Qualified Code(s): J45.30 - Mild persistent asthma, uncomplicated Plan: Controlled Continue Qvar Redihaler 80 mcg 1 inhalation BID and Albuterol HFA 2 inhalations every 6 hours as needed (2) Allergic rhinitis: Code(s): J30.9 - Allergic rhinitis, unspecified Category: Medical Qualifiers: Allergic rhinitis trigger: unspecified Allergic rhinitis seasonality: unspecified Qualified Code(s): J30.9 - Allergic rhinitis, unspecified Plan: Continue Fexofenadine 180 mg QD PRN Follow up with [facility] for her allergies as scheduled (3) Acquired hypothyroidism: Code(s): E03.9 - Hypothyroidism, unspecified Category: Medical Plan: She has Evelyn's thyroiditis and is seeing Dr. Carlton for endocrinology follow up regularly Continue Levothyroxine 75 mcg QD - dose appears to have been decreased from her previous [address] Carlton (4) Osteoporosis: Code(s): M81.0 - Age-related osteoporosis without current pathological fracture Category: Medical Qualifiers: Osteoporosis type: age-related Presence of current pathological fracture: without current pathological fracture Qualified Code(s): M81.0 - Age- related osteoporosis without current pathological fracture Plan: Continue Prolia injections every 6 months States that her last BMD was done in the summer Follow up with endocrinology as scheduled - is now seeing Dr. Carlton at [facility] (5) Fibromyalgia: Code(s): M79.7 - Fibromyalgia Category: Medical Plan: Continue Pregabalin 50 mg BID She is again encouraged on regular exercises to help better manage her fibromyalgia symptoms (6) Back pain: Code(s): M54.9 - Dorsalgia, unspecified Category: Medical Qualifiers: Back pain location: thoracic back pain Chronicity: acute Back pain laterality: midline Qualified Code(s): M54.6 - Pain in thoracic spine Plan: Her most recent thoracic spine x-rays done in [facility] in January 2023 revealed only (+) mild multilevel degenerative changes at the mid-thoracic spine Reinforced activity and weight lifting restrictions to minimize aggravating her back pain (7) Chronic ear pain: Code(s): H92.09 - Otalgia, unspecified ear; G89.29 - Other chronic pain Category: Medical Qualifiers: Laterality: bilateral Qualified Code(s): H92.03 - Otalgia, bilateral; G89.29 - Other chronic pain Plan: Patient has been complaining of frequent/persistent ear pain/congestion/discomfort for the past few years and these have not responded so far to empiric Abx Tx as well as trials of antihistamines and decongestants Suspect that she may possibly have eustachian tube dysfunction She has been referred to several ENT practices multiple times over the past 2-3 years but for unclear reasons, she was never seen She is requesting another referral to ENT in [place], [place] and states that she would try to contact them on her own to schedule an appointment once the referral is placed (8) Chronic sore throat: Code(s): J31.2 - Chronic pharyngitis Category: Medical Plan: Her throat and ear exam continues to be unremarkable She has been treated empirically with multiple antibiotics over the past few years, with often only temporary relief of her sore throat Suspect that she may have some eustachian tube dysfunction that is contributing to her recurrent sore throat and ear pain and have advised patient that she should see ENT for further evaluation and management of her recurrent sore throat and ear pain (9) Peripheral neuropathy: Code(s): G62.9 - Polyneuropathy, unspecified Category: Medical Qualifiers: Peripheral neuropathy type: polyneuropathy, unspecified Qualified Code(s): G62.9 - Polyneuropathy, unspecified Plan: EMG and NCV done last year revealed (+) mild to moderate peripheral sensory neuropathy Continue Pregabalin 50 mg BID - she was not able to tolerate Gabapentin in the past due to side effects (dizziness) (10) Irritable bowel syndrome with constipation: Code(s): K58.1 - Irritable bowel syndrome with constipation Category: Medical Plan: Reinforced increased oral fluids and dietary fiber Continue Dicyclomine PRN She has been tried on multiple medications in the past for her constipation with limited relief, including Trulance and Amitiza She continues to follow up with GI out of [facility] via telehealth visits and would like to go back on Linzess 290 mcg QD at this time - Rx for Linzess sent to pharmacy (11) Insomnia: Code(s): G47.00 - Insomnia, unspecified Category: Medical Qualifiers: Insomnia type: unspecified Qualified Code(s): G47.00 - Insomnia, unspecified Plan: Sleep hygiene reinforced Continue Zolpidem 10 mg Q HS PRN (12) ADD (attention deficit disorder): Code(s): F98.8 - Other specified behavioral and emotional disorders with onset usually occurring in childhood and adolescence Category: Medical Qualifiers: Hyperactivity presence: unspecified Qualified Code(s): F98.8 - Other specified behavioral and emotional disorders with onset usually occurring in childhood and adolescence Plan: Continue Methylphenidate ER 36 mg QD in AM Have discussed again with patient that staying on this Rx as she gets older can increase her cardiovascular risks and she should start considering other alternative options to cope with her ADD symptoms going forward, preferably without the use of any prescription stimulants (13) Anxiety: Code(s): F41.9 - Anxiety disorder, unspecified Category: Medical Plan: Continue Lorazepam 1 mg Q HS PRN She was also on Buspirone 5 mg BID previously but patient stopped taking her Rx a while back as she felt that it was not helping She was previously started back on Bupropion XL 150 mg QD, with her dose subsequently increased to 300 mg QD but she states that it did not help and she also stopped taking it a while back She was most recently on Fluoxetine 20 mg QD but she was not sure if it was helping; recalls feeling that the Rx was also causing her to feel more constipated and she eventually stopped taking Fluoxetine as well She's had similar issues with her current Venlafaxine Rx and is now requesting that she be switched back to her previous Rx of Escitalopram and Buspirone (14) Depression: Comment: most likely has bipolar depression Code(s): F32.9 - Major depressive disorder, single episode, unspecified Category: Medical Qualifiers: Depression Type: major depressive disorder Major depression recurrence: recurrent Active/Remission status: currently active Major depression episode severity: unspecified Qualified Code(s): F33.9 - Major depressive disorder, recurrent, unspecified Plan: She used to take Venlafaxine 37.5 mg but stopped taking it sometime last year as she felt that the medication was making her more constipated and aggravating her trouble sleeping at night although she admits that none of these got significantly better when she stopped taking her Venlafaxine She was also on Bupropion XL 300 mg QD and Mirtazapine 15 mg Q HS as well as on Fluoxetine 20 mg QD at one point but she also ended up self discontinuing these medications as she felt that they were not helping She was most recently on Venlafaxine 37.5 mg QD and now wants to try switching back to Escitalopram and Buspirone Due to her significant mood disorder and the complexity of her issues, compounded by her habit of self discontinuing her medications and her tendency to request for frequent medication changes to her choice of medications or treatments at a given time ( based on her own research ), we have tried referring her to Psychiatry multiple times in the past but she states that she still has not been able to get established with a psychiatrist We also tried referring her to the Psychiatry outpatient clinic here in [place] previously to get her started but for unclear reasons, she was not seen States that she tried reaching out to [facility] here but was again advised that they did not receive a referral from us(?) We tried referring her again (for the ??? time) to [facility] for psychiatry management previously Have advised patient again that her habit of self managing her own depression and mood disorder is not really advisable and makes it a lot more difficult for anyone, including a psychiatrist, to properly and appropriately treat her Plan Follow up in 4 months Medications: Refilled escitalopram oxalate 5 mg PO QAM 30 tabs 3RF 30 days buspirone 5 mg PO BID 60 tabs 2RF 30 days F41.9 - Anxiety disorder, unspecified, F32.9 - Major depressive disorder, single episode, unspecified
--- OUTSIDE RECORDS SUMMARY | 2025-01-28 13:30 | XMS_ITS ---
[facility] Name [facility] Unknown Problems Problem Status Onset Date Problem Type Date of Resoluti on Source Otalgia of both ears active EncounterDiagnosisA ct [facility] Acute recurrent tonsillitis active EncounterDiagnosisAct [facility] Care Team Organization Name Specialty Phone Email Start Date End Da [facility] [place] Medical Professmirella garcia ([facility]) [employer] Research Engineer 10/30/2024
--- OUTSIDE RECORDS SUMMARY | 2025-01-28 13:30 | XMS_ITS | Continuity of Care Document ---
Author Organization [facility] Address [address] [place] [address] Phone [phone] Care Team Providers Care Regional Vice President Surgical Sales Name Role Phone No Primary Provider Care Team Information Receiv er Unavailable SHAWNA FERRELL M.D. Care Team Information Rec eiver Unavailable No Primary Provider Primary Care Physician Unava ilable Social History Type Date Description Comments Sex Female Sex Unknown Medications Active Medications SIG Qnty Indications Ordering Provider Date Kefepvqzu24hm Capsules Shira Pitt MD Fluvirin0.5ml Yary Unknown 0 Mgccq39gnp/Act Aerosol Unknown Meclizine HCL12.5mg Tablets Bhavik De [place] Xiidra5% Solution Unknown Levothyroxine Ocabmo28kkx Tablets Unknown Avgjxiw398-43hqs/Act Suspension Unknown Bnvssnf77hsu Capsules Unknown Oseltamivir Xantcszlb40ot Capsules Unknown Llrwabqmauxb293eq Tablets Unkn own Atomoxetine KTK43zf Capsules Shira Barr MD Jqnmeqmkq623mx Tablets Shira Pitt MD Ciprofloxacin YXS805vr Tablets Unknown Methylphenidate Hydrochlorid e ER27mg Tablets ER Shira Pitt MD Tqnjcov612-32 Suspension [place], Shira [place] TrumenbaSusy Unknown 000 Polyethylene Glycol [id number] NF Powder Unknown Nulytely With Flavor Packs42 0gm Solution Rec Unknown Estrace0.1mg/GM Cream Unknown Trazodone XSS595wa Tablets Shira Yeh MD Pantoprazole Csucaa20tz Tabl ets DR Unknown Methylphenidate Hydrochlorid e ER18mg Tablets ER Unknown
--- OUTSIDE RECORDS SUMMARY | 2025-01-28 13:30 | XMS_ITS | Data Portability ---
Author Organization [place] [facility],, SEJAL POLK MD Address [address] [address] Care Team Providers Care Farm Management Agent Name Role Phone JODIE LATHAM Primary Care Provider Assessment No assessment recorded. Plan of Treatment Reminders Order Date Submit Date Provider Last Modified By Organization Details Last Modified Time Details Appointments None recorded. Lab cytology report, thin prep, smear or scraping, cervical or vaginal 2024 025 PEDRO PABLO [facility] (Centralized Electronic Ordering - All Locations), Patient Can Go To The Location Of Their Choice, [id number] 5 14:16:11 urinalysi s, dipstick 2024 025 [email or web address] 1 In-Office Order, Internal Use Only DO Not Attach Compendium DO Not Attach Compendium, Do Not Delete/merge, [id number] 5 13:47:40 culture, urine 2024 025 PEDRO PABLO [facility], [address] [place] [address], [id number], 5 20:06:06 hemoglobi n, gastroint estinal, stool 2024 025 [email or web address] 1 In-Office Order, Internal Use Only DO Not Attach Compendium DO Not Attach Compendium, Do Not Delete/merge, [id number] 5 13:47:40 pap test, thinprep, cervical 2023 024 [email or web address] [facility] (Centralized Electronic Ordering - All Locations), Patient Can Go To The Location Of Their Choice, [id number] 4 07:39:40 urinalysi s, dipstick 2023 024 [email or web address] 1 In-Office Order, Internal Use Only DO Not Attach Compendium DO Not Attach Compendium, Do Not Delete/merge, 4 12:15:11 culture, urine 2023 024 PEDRO PABLO [facility] (Centralized Electronic Ordering - All Locations), Patient Can Go To The Location Of Their Choice, 4 07:19:51 fecal occult blood, stool 2023 024 [email or web address] 1 In-Office Order, Internal Use Only DO Not Attach Compendium DO Not Attach Compendium, Do Not Delete/merge, 4 12:31:16 wet mount, vaginal 2023 024 [email or web address] 1 In-Office Order, Internal Use Only DO Not Attach Compendium DO Not Attach Compendium, Do Not Delete/merge, 4 12:45:50 pap test, thinprep, cervical 2022 023 [email or web address] [facility] (Centralized Electronic Ordering - All Locations), Patient Can Go To The Location Of Their Choice, 3 07:29:24 urinalysi s, dipstick, auto 2022 023 PEDRO PABLO In-Office Order, Internal Use Only DO Not Attach Compendium DO Not Attach Compendium, Do Not Delete/merge, 3 10:50:34 culture, urine 2022 023 PEDRO PABLO [facility] (Centralized Electronic Ordering - All Locations), Patient Can Go To The Location Of Their Choice, 3 07:49:54 fecal occult blood, stool 2022 023 [email or web address] 1 In-Office Order, Internal Use Only DO Not Attach Compendium DO Not Attach Compendium, Do Not Delete/merge, 3 10:23:52 pap test, thinprep, cervical 2021 022 [email or web address] [facility], Cytopathology Service, [address] [place], [address], 2 07:42:25 urinalysi s, dipstick 2021 022 [email or web address] 1 In-Office Order, Internal Use Only DO Not Attach Compendium DO Not Attach Compendium, Do Not Delete/merge, [id number] 2 11:43:45 culture, urine 2021 022 [facility], [address] [place], [address], 2 13:39:19 fecal occult blood, stool 2021 022 [email or web address] 1 In-Office Order, Internal Use Only DO Not Attach Compendium DO Not Attach Compendium, Do Not Delete/merge, [id number] 2 11:43:45 urinalysi s, dipstick 2020 021 [email or web address] 1 In-Office Order, Internal Use Only DO Not Attach Compendium DO Not Attach Compendium, Do Not Delete/merge, [id number] 1 15:51:18 culture, urine 2020 021 [facility], [address] [place], [address], 1 13:48:21 Referral breast surgery referral - bilateral breast pain 2023 024 [facility], [address], [place] [address], [place], [address], 4 08:47:39 pelvic floor therapy referral 2022 023 [facility], [address] [place] [address], [address], 4 07:36:57 Procedures None recorded. Surgeries None recorded. Imaging MAMMO, screening , digital, bilateral - Breast Aspiratio n and/or Biopsy if needed 2024 025 [email or web address] [facility], [address], [address], [place], [address], 5 14:42:45 MAMMO, screening , digital, bilateral - Breast Aspiratio n and/or Biopsy if needed 2023 024 [facility], [address] [place], [address], 4 17:04:51 US, pelvis, transabdo delvin + transvagi nal - bilateral lower pelvic pain ongoing for years, histroy of pelvic congestio n syndrome 2023 024 [email or web address] Not available 4 07:36:16 MAMMO, screening , digital, bilateral 2022 023 PEDRO PABLO Not available 3 16:40:03 MAMMO, screening , digital, bilateral 2021 022 [email or web address] Not available 4 07:22:48 US, pelvis, transabdo delvin + transvagi nal - bilateral pelvic pain on and off for a year 2020 021 [facility], [address], [place], [address], 1 08:20:52 Medication Orders estradiol 0.01% (0.1 mg/gram) vaginal cream 2024 025 [facility], [address] [place], [address], 5 13:47:42 hydrocort isone 2.5 % topical cream with perineal applicato r 2024 025 [facility], [address] [place], [address], 5 13:49:38 triamcino lone acetonide 0.1 % topical ointment 2024 025 [facility], [address] [place], [address], 5 13:49:38 fluconazo le 150 mg tablet 2023 024 [facility], [address] [place], [address], 5 13:10:29 triamcino lone acetonide 0.1 % topical ointment [address] [facility], [address] [place] [address], [address], 4 12:52:07 Gynazole- 1 2 % vaginal cream 2021 022 [id number], [address] [place], [address], 3 09:29:07 estradiol 0.01% (0.1 mg/gram) vaginal cream 2020 021 [id number], [address] [place], [place], [id number], 1 15:55:09 Patient TargetsNo targets recorded. Patient Instructions Encounter Date Encounter Id Patient Instructions Last Modified By Organization Details Last Modified Time 06/17/2021 [id number] urinary tract infection in women information Not available 06/17/2021 15:51:18 atrophic vaginit is: care instructions Not available 06/17/2021 15:55:02 She is here for a concern about her previously ultrasound diagnosis of pelvic congestion syndrome, made on sonogram in 08/2020. We had discussed it at the time and offered a repeat sonogram in a few months to reassess to see if it was persistent, however she decided she wanted to have a consult with her vascular surgeon in [place], instead. She apparently made and cancelled 3 visits there, but never ended up going, due to her work schedules. Also, she just recently saw her PCP, who was reviewing records from my old [employer] from more than 10 years ago. and was advised that the records stated that she had uterine prolapse and needed a surgery and so she is worried about having this condition, and would like to be assessed for this today. She is using her estradiol vaginal cream routinely. she notes that she does, on rare occasions, have vaginal pressure in the afternoon, but it does not cause her concern. She feels that she urinates too many times in the day. She states that she urinates 5 times a day, typically. She continues to have joint and back pain, she had injured herself in the gym in October, and she has her continued abdominal pain and dyspareunia. She had been referred for a breast surgeon and a urologist, at her annual exam in 08/2020, she went to neither. She had been having breast pain without mass, after removal of her implants. The urologist referral was for increased urinary frequency. On exam: at rest there is no cystocele or uterine prolapse. With strong Valsalva there is a first to second degree cystocele, and still no uterine prolapse. No rectocele. She is advised that she does not appear to have a significant enough pelvic relaxation to require treatment, however we can refer her to [facility] urogyn to discuss her possible pelvic congestion syndrome, her sense of increased frequency of urination, and to assess her pelvic musculature to see if there is a treatmnt option for her dysapreunia, as the estradiol vaginal cream has not resolved her concerns. She does not want to go to [facility] urogyn. She wishes to call her vascular surgeon and get another appointment there. She is advised that it has been a long time since her prior sonogram, and she should get another, to ensure that this diagnosis of pelvic congestion syndrome persists, she agrees to do so, we will schedule pelvic sonogram. All questions answered. Also she has questions about her urinary concerns, she is advised that she can see the urologist or the urogyn for this, however at this time she declines. She requests a refill on her estradiol vaginal cream. Face to face discussion 40 minutes Not available 06/17/2021 16:16:36 08/26/2021 [id number] learning about healthy weight Not available 08/26/2021 11:43:44 urinary tract infection in women information Not available 08/26/2021 11:43:44 frequent urinati on: care instructions Not available 08/26/2021 11:43:45 candidiasis: car e instructions Not available 08/26/2021 11:43:44 She is here for annual exam, she also has a number of other issues she would like to discuss. She saw the [facility] urologist and is set up for pelvic floor therapy but she is not certain if this will improve her chronic pelvic pain. She has chronic constipation, she wonders if it is due to stopping her thyroid medication, she cannot take it properly she notes because she gets up too early in the am for work and cannot wait to eat. She has migraine headaches, her neurologist started her on prednisone however she has not started them yet. She has a vaginal pruritus for 3 weeks and if she has monilia she prefers Gynazole-1. She has pelvic prolapse symptoms, the [facility] urologist set her up for the PT, she has not started that yet. She has painful varicosities, is to see a vascular surgeon next month, we had referred her a year ago but she had to reschedule the scheduled appointment and it has been a year and she hasn't gotten in there yet. She has an air bag stripper who manages her osteoporosis. Note from 2020: She is here for annual exam, her last annual was 04/2019. She had taken HRT half dose in the past but stopped as she felt it was causing constipation. She was switched to Evista as her bone density showed a T Score of -2.9 in her spine, in 12/20, however she went to see an air bag stripper who got her approved for PRolia, she had her first injection in February 2020, she is due soon for her next. She has a number of other issues to discuss: She wants to go over if she should start HRT again or not. She has persistent urinary frequency despite using the E2 cream every other day, She has external pruritus which resolved with the aristocort in the past, but needs a refill. She wonders if she has a vaginal yeast infection right now., She has had intermittent bilateral pain in her breasts with no pattern, in different places in the breasts, and would like to see a specialist for this. She has a history of bilateral breast reduction. Also had breast implants removed in 2017. She has been having intermittent bilateral pelvic pain, with no etiology. She would like to have a pelvic sonogram, does not want a pelvic CT scan. ____ She has vaginal monila on wet yogi, rx Gynazole-1 at her request. She is to follow up with her vascular surgeon for her varicosities and pain, her air bag stripper about her bone density, her neurologist for her migraines, her PT for pelvic floor therapy, and her infertility/endocri nology doctor for possible pelvic surgery if indicated. She is advised to let her PCP know that she is not taking her thyroid hormone, and to get testing. She is to follow up with her GI doctor about her chronic constipation. I have been prescribing estradiol vaginal cream on and off since 2012 however there is no pharmacy indication that she has picked it up. Last year she was prescribed Aristocort however ther is no pharmacy documentation that it was ever picked up. Monthly self breast exam was taught, and stressed, and is advised to call if she discovers any new mass in the breast. Not available 08/26/2021 12:59:29 08/23/2022 [id number] learning about healthy weight Not available 08/23/2022 10:23:52 painful urinatio n (dysuria): care instructions Not available 08/23/2022 10:23:52 osteoporosis: ca re instructions Not available 08/23/2022 10:24:01 She is her for annual exam however she has a number of other unresolved issues as well. 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 note from 08/26/21: She is here for annual exam, she also has a number of other issues she would like to discuss. She saw the [facility] urologist and is set up for pelvic floor therapy but she is not certain if this will improve her chronic pelvic pain. She has chronic constipation, she wonders if it is due to stopping her thyroid medication, she cannot take it properly she notes because she gets up too early in the am for work and cannot wait to eat. She has migraine headaches, her neurologist started her on prednisone however she has not started them yet. She has a vaginal pruritus for 3 weeks and if she has monilia she prefers Gynazole-1. She has pelvic prolapse symptoms, the [facility] urologist set her up for the PT, she has not started that yet. She has painful varicosities, is to see a vascular surgeon next month, we had referred her a year ago but she had to reschedule the scheduled appointment and it has been a year and she hasn't gotten in there yet. She has an air bag stripper who manages her osteoporosis. Problem visit portion of her visit today: She continues with issues of constipation, though she does not take her thyroid medication on a regular basis due to her work schedule. She is advised to contact her PCP to discuss this in more detail, and advised to take her medication daily. She has been diagnosed with fibromyalgia. She has dysuria on and off, she would like a urine dip and culture done. She notes her PCP gives her a recurring rx for diflucan as she has recurrent vaginal monilia, she would like me to give her the same rx. She is advised it would be better if she were to cone in her if she has symptoms of vaginal monilia so that we can be certain of the diagnosis and can work on managing the recurrent issues if they are documented. She continues to have pelvic discomfort, she was referred to physical therapy for pelvic floor therapy and she did go briefly but that therapist left and it was going to take a while to see a new one so she stopped going. She was referred to a vascular surgeon to asses her pelvic congestion syndrome, she did go to see one but they gave her leg compression stockings and did not really asses her pelvic issues, she feels. We will refer her back to a vascular surgery to address the actual concerns, she agrees to go. We discussed all this at [facility], all questions answered to her satisfaction. I will again put in a referral for vascular surgery, and also a referral for pelvic floor therapy. She agrees to go for these. She is to contact her PCP to let them know she is unable to take her thyroid medication daily. Her urine dip is unremarkable, will check urine culture at her request. She has osteoporosis, she had hortensia on Prolia but her insurance now does not cover it, and she has gastritis with Fosamax. She asked me if I would put her on Prolia if I could get it approved, however her air bag stripper already tried a prior auth and her insurance denied it so it is unlikely that my office would get a different result. She then asks if I will take over her osteoporosis management. She would like to go back on low dose HRT, as osteoporosis management. however she had side effects on this, had tried it multiple times, and could not tolerate it so it does not seem rationale to try that again. She is advised that Evista may be of some help, and she is advised to contact her air bag stripper and ask if he would be willing to treat her with Evista. It is preferable that only one provider manage a medical issue so that there is not mixed messaging and the possibility of medication error. She understands and will do this. She was given Evista in 2019 and had no issue wiht it but the air bag stripper suggested Prolia instead. Also she would like to have me look at scar tissue in her vaginal canal that she noticed when examining herself one day, I did not find any evidence of tissue abnormality, scar, or other issues on direct physical exam. Face to face discussion 25 minutes for the problem visit portion of today's visit Annual exam portion of today's visit: She appears to be doing well. Her air bag stripper is managing her osteoporosis. Monthly self breast exam was taught, and stressed, and is advised to call if she discovers any new mass in the breast. Not available 08/23/2022 10:25:42 08/22/2023 [id number] learning about healthy weight Not available 08/22/2023 12:15:11 urinary tract infection in women information Not available 08/22/2023 12:15:11 vaginal yeast infection: care instructions Not available 08/22/2023 12:15:32 She is here for annual, she has a few other concerns as well. She has noted worsening night sweats recently. Problem visit portion of today visit: 1. She has vaginal pruritus and would like to see if she has a vaginal yeast infection. 2. She has frequency of urination and would like to see if she has a UTI. 3. She has lower pelvic and low back abdominal pain of many year's duration, last sonogram was in 06/22 and showed prominent left adnexal veins. She was referred by the [facility] urologist for pelvic floor therapy however she states that all they did was give me compression socks. she feels they did not do pelvic floor therapy. That was in [place], [place], at her request. 4. She had been taking thyroid meds but has not taken them in about a year, she is seeing an air bag stripper who did labs in December, They were normal. 5. She has osteoporosis, she is seeing the air bag stripper for that as well, however she would prefer to take Prolia, but they gave her alendronate, she is not taking anything because she wants to take Prolia and she would like me to order it for her today. 6. She had been given estradiol vaginal cream and also Premarin vaginal cream in the past but has not taken them since at least 2020 for the estradiol and 2015 for the Premarin. she has a sense of vaginal dryness nad itching at the introitus. 7. She has several months of bilateral breast pain, it comes and goes, she is not sure what is causing it but she would like to see a specialist for this. Note from 2022: She is her for annual exam however she has a number of other unresolved issues as well. 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 note from 08/26/21: She is here for annual exam, she also has a number of other issues she would like to discuss. She saw the [facility] urologist and is set up for pelvic floor therapy but she is not certain if this will improve her chronic pelvic pain. She has chronic constipation, she wonders if it is due to stopping her thyroid medication, she cannot take it properly she notes because she gets up too early in the am for work and cannot wait to eat. She has migraine headaches, her neurologist started her on prednisone however she has not started them yet. She has a vaginal pruritus for 3 weeks and if she has monilia she prefers Gynazole-1. She has pelvic prolapse symptoms, the [facility] urologist set her up for the PT, she has not started that yet. She has painful varicosities, is to see a vascular surgeon next month, we had referred her a year ago but she had to reschedule the scheduled appointment and it has been a year and she hasn't gotten in there yet. She has an air bag stripper who manages her osteoporosis. Problem visit portion of her visit today: She continues with issues of constipation, though she does not take her thyroid medication on a regular basis due to her work schedule. She is advised to contact her PCP to discuss this in more detail, and advised to take her medication daily. She has been diagnosed with fibromyalgia. She has dysuria on and off, she would like a urine dip and culture done. She notes her PCP gives her a recurring rx for diflucan as she has recurrent vaginal monilia, she would like me to give her the same rx. She is advised it would be better if she were to cone in her if she has symptoms of vaginal monilia so that we can be certain of the diagnosis and can work on managing the recurrent issues if they are documented. She continues to have pelvic discomfort, she was referred to physical therapy for pelvic floor therapy and she did go briefly but that therapist left and it was going to take a while to see a new one so she stopped going. She was referred to a vascular surgeon to asses her pelvic congestion syndrome, she did go to see one but they gave her leg compression stockings and did not really asses her pelvic issues, she feels. We will refer her back to a vascular surgery to address the actual concerns, she agrees to go. We discussed all this at [facility], all questions answered to her satisfaction. I will again put in a referral for vascular surgery, and also a referral for pelvic floor therapy. She agrees to go for these. She is to contact her PCP to let them know she is unable to take her thyroid medication daily. Her urine dip is unremarkable, will check urine culture at her request. She has osteoporosis, she had hortensia on Prolia but her insurance now does not cover it, and she has gastritis with Fosamax. She asked me if I would put her on Prolia if I could get it approved, however her air bag stripper already tried a prior auth and her insurance denied it so it is unlikely that my office would get a different result. She then asks if I will take over her osteoporosis management. She would like to go back on low dose HRT, as osteoporosis management. however she had side effects on this, had tried it multiple times, and could not tolerate it so it does not seem rationale to try that again. She is advised that Evista may be of some help, and she is advised to contact her air bag stripper and ask if he would be willing to treat her with Evista. It is preferable that only one provider manage a medical issue so that there is not mixed messaging and the possibility of medication error. She understands and will do this. She was given Evista in 2019 and had no issue wiht it but the air bag stripper suggested Prolia instead. Also she would like to have me look at scar tissue in her vaginal canal that she noticed when examining herself one day, I did not find any evidence of tissue abnormality, scar, or other issues on direct physical exam. Annual exam portion of visit today: She appears to be doing well. She will try Remifemin black cohash to see if this helps her night sweats, if not then she will call for a telehealth to discuss possible HRT. Monthly self breast exam was taught, and stressed, and is advised to call if she discovers any new mass in the breast. Problem visit portion of visit today: 1. wet yogi show yeast, rx diflucan. 2. Urine dip clean, check urine culture at her request. 3. Check pelvic sonogram again to assess the pelvic pain. She is advised that we can refer her to pelvic floor therapy in this area, she wants to first see what the pelvic sonogram shows. If negative then she is advised to follow up with her PCP about the pelvic and back pain. 4. and 5. She is advised to follow up with her air bag stripper about her thyroid and her osteoporosis. Unfortunately I need to defer to ther specialist about whether to give Prolia or not. 6. she has a new diagnosis of genital lichen sclerosis, this may be the etiology osfher sense of dry skin at the introitus. She is given an rx for Aristocort to use topically BID for a few weeks, then reassess. IF the comfort is improved then cut back to twice a week thereafter. IF she is still uncomfortable then we may want to restart the vaginal estradiol again as that had helped in the past, she forgot about that, she is reminded. 7. she is referred to the breast surgeon at [facility] for assessment of her bilateral breast pain. She is advised that if the Remifemin does not help the night sweats after 4 weeks then call and we can do a telehealth about possibly restarting the oral HRT that she has taken in the past. Face to face discussion 30minutes for the problem visit portion of our visit today. Not available 08/22/2023 12:43:34 10/01/2024 [id number] learning about healthy weight Not available 10/01/2024 13:47:40 urinary tract infection in women information Not available 10/01/2024 13:47:40 constipation: ca re instructions Not available 10/01/2024 13:55:18 hemorrhoids: car e instructions Not available 10/01/2024 13:49:37 frequent urinati on: care instructions Not available 10/01/2024 13:55:18 She is here for annual exam. She has a number of other concerns as well. Note from 2023: She is here for annual, she has a few other concerns as well. She has noted worsening night sweats recently. Problem visit portion of today visit: 2023 1. She has vaginal pruritus and would like to see if she has a vaginal yeast infection. 2. She has frequency of urination and would like to see if she has a UTI. 3. She has lower pelvic and low back abdominal pain of many year's duration, last sonogram was in 06/22 and showed prominent left adnexal veins. She was referred by the [facility] urologist for pelvic floor therapy however she states that all they did was give me compression socks. she feels they did not do pelvic floor therapy. That was in [place], [place], at her request. 4. She had been taking thyroid meds but has not taken them in about a year, she is seeing an air bag stripper who did labs in December, They were normal. 5. She has osteoporosis, she is seeing the air bag stripper for that as well, however she would prefer to take Prolia, but they gave her alendronate, she is not taking anything because she wants to take Prolia and she would like me to order it for her today. 6. She had been given estradiol vaginal cream and also Premarin vaginal cream in the past but has not taken them since at least 2020 for the estradiol and 2016 for the Premarin. she has a sense of vaginal dryness nad itching at the introitus. 7. She has several months of bilateral breast pain, it comes and goes, she is not sure what is causing it but she would like to see a specialist for this. She appears to be doing well. Monthly self breast exam was taught, and stressed, and is advised to call if she discovers any new mass in the breast. Problem visit portion of visit today 2024: 1. She notes her sister from colon cancer but her sister did not have hereditary cancer testing so the patient would like Garcia testing. 2. She has continued urinary frequency and urgency despite using the estradiol vaginal cream. She had seen a urologist in the past but did not want to follow her recommendations at that time. She also wants to have a urine culture and dip done as she feels she may hae a UTI. 3. She notes she has a hemorrhoid and would like a treatment for that. 4. She needs a renewal on the estradiol vaginal cream and also the Triamcinolone she is using for her lichen sclerosis. 5. She has had worsening constipation in the past few months 6. She wants me to know she is now getting prolia for her osteoporosis. She will return for Garcia testing, is advised how we do that. Rx proctosol for symptomatic hemorrhoid called in. Renew estradiol vaginal cream and also Aristocort, we discussed hse is only using it once a week and she is having some symptoms on the left side of the introitus, she is to use it BID for 3 to 4 weeks and see if the symptoms go away. If they do not then call to return for biopsy of the area to rule out a pre-cancer, she understands and agrees. She is advised to call her urologist about the urinary issues. Check urine culture, dip is clean. She is advised ot call her GI doctor about her constipation issues. All questions answered Face to face discussion, chart review and coordination of care for problem visit portmirella of today's visit only: 15 minutes Not available 10/01/2024 13:54:54 Reason for Referral Pelvic Floor Therapy Referra l for Pelvic congestion syndrome Referring Physician: Sejal Polk, Gynecology, Encounter Date: 08/23/2022 Breast Surgery Referral for Mastodynia of bilateral breasts bilateral breast pain Referring Physician: Sejal Polk Gynecology, Encounter Date: 08/22/2023 Results Created Date Observation Date Name Description Value Unit Range Abnormal Flag Note LastModifiedBy Organization Detail LastModifiedTime 06/17/2006/17/2021 URINE CULTU RE comments [facility], a membe r of [employer] [facility] [address] [place] [address] [facility] chapincito costa MD [facility] E: URINE ,MONTEZ N CATCH ; Not Available [facility] [address] [place] [address], [id number], 06/18/2021 13:48:21 06/17/20 21 06/18/2021 URINE CULTU RE urine culture [facility] atorcarolina ernst, a membe r of [employer] [facility] [address] [place] [address] [facility] [place] chapincito costa MD [facility] CTION TIME: 06/17 2:30: 00 PM -05:0 0 URINE CULTU RE No growt h F Not Available [facility] [address] [place] [address], [id number], 06/18/2021 13:48:21 06/17/20 21 06/17/2021 urina lysis , dipst ick GLU Negati ve Not Available In-Office Order Internal Use Only DO Not Attach Compendium DO Not Attach Compendium, Do Not Delete/merge, [id number] 06/17/2021 15:30:02 06/17/20 21 06/17/2021 urina lysis , dipst ick JAMMIE Negati ve Not Available In-Office Order Internal Use Only DO Not Attach Compendium DO Not Attach Compendium, Do Not Delete/merge, [facility] 06/17/2021 15:30:02 06/17/20 21 06/17/2021 urina lysis , dipst ick KET Negati ve Not Available In-Office Order Internal Use Only DO Not Attach Compendium DO Not Attach Compendium, Do Not Delete/merge, [facility] 06/17/2021 15:30:02 06/17/20 21 06/17/2021 urina lysis , dipst ick SG 1.025 Not Available In-Office Order Internal Use Only DO Not Attach Compendium DO Not Attach Compendium, Do Not Delete/merge, [facility] 06/17/2021 15:30:02 06/17/20 21 06/17/2021 urina lysis , dipst ick BLO Negati ve Not Available In-Office Order Internal Use Only DO Not Attach Compendium DO Not Attach Compendium, Do Not Delete/merge, [facility] 06/17/2021 15:30:02 06/17/20 21 06/17/2021 urina lysis , dipst ick pH 7.0 Not Available In-Office Order Internal Use Only DO Not Attach Compendium DO Not Attach Compendium, Do Not Delete/merge, [facility] 06/17/2021 15:30:02 06/17/20 21 06/17/2021 urina lysis , dipst ick PRO Negati ve Not Available In-Office Order Internal Use Only DO Not Attach Compendium DO Not Attach Compendium, Do Not Delete/merge, [facility] 06/17/2021 15:30:02 06/17/20 21 06/17/2021 urina lysis , dipst ick URO 0.2 E.U. / dl Not Available In-Office Order Internal Use Only DO Not Attach Compendium DO Not Attach Compendium, Do Not Delete/merge, [facility] 06/17/2021 15:30:02 06/17/20 21 06/17/2021 urina lysis , dipst ick NIT negati ve Not Available In-Office Order Internal Use Only DO Not Attach Compendium DO Not Attach Compendium, Do Not Delete/merge, [id number] 06/17/2021 15:30:02 06/17/20 21 06/17/2021 urina lysis , dipst ick LEO Negati ve Not Available In-Office Order Internal Use Only DO Not Attach Compendium DO Not Attach Compendium, Do Not Delete/merge, [id number] 06/17/2021 15:30:02 08/26/19 22 08/26/2021 URINE CULTU RE comments [facility] [employer] [facility] [address] [place] [address] Medic al Dire chapincito costa MD [facility] E: URINE ,MONTEZ N CATCH ; Not Available [facility] [address] [place] [address], [id number], 08/27/2021 13:39:19 08/26/19 22 08/27/2021 URINE CULTU RE urine culture [facility] at[facility]car[facility]ina ern[facility], a membe r of [facility] [address] [place] [address] Medic al Dire chapincito costa MD COLLE CTION TIME: 2021 11:18 :00 AM -05:0 0 URINE CULTU RE <10,0 00 CFU/m L F URINE CULTU RE GRAM POSIT JUSTICE COCCI F Not Available [facility] [address] [place] [address], [id number], 08/27/2021 13:39:19 08/26/19 22 08/26/2021 PAP1C ASE [id number] ThinP rep Pap, Image d: NEGAT JUSTICE FOR SQUAM OUS INTRA EITHE LIAL LESIO N AND MALIG DELGADO . Atrop hy with infla mmati on is prese nt. Note: The Pap test is a scree yesenia test with an inher ent false negat justice rate. Autom ated presc reeni ng of all liqui d based speci mens is perfo rmed by the ThinP rep Imagi ng Syste m unles s other [facility] luzmaria [place] hers , [place]( CP) (Case elect yong carmona suze d 09 07 2021) ADEQU ACY: Satis facto ry Endoc ervic al/tr ansfo rmati on zone compo nent prese nt. SOURC E: ThinP rep Pap HPV IF Ascus : Refle x 16 and 18, Cervi teresa, Image d CLINI TERESA INFOR MATIO N: HPV If Diagn osis of ASCUS . Z12.4 Not Available [facility], Cytopathology Service [address] [place], [address], 09/07/2021 10:15:33 08/26/19 22 08/26/2021 fecal occul t blood , stool Occult Blood negati ve Not Available In-Office Order Internal Use Only DO Not Attach Compendium DO Not Attach Compendium, Do Not Delete/merge, [facility] 08/26/2021 11:06:03 08/26/1908/26/2021 urina lysis , dipst ick GLU Negati ve Not Available In-Office Order Internal Use Only DO Not Attach Compendium DO Not Attach Compendium, Do Not Delete/merge, [facility] 08/26/2021 11:19:16 08/26/1908/26/2021 urina lysis , dipst ick JAMMIE Negati ve Not Available In-Office Order Internal Use Only DO Not Attach Compendium DO Not Attach Compendium, Do Not Delete/merge, [facility] 08/26/2021 11:19:16 08/26/1908/26/2021 urina lysis , dipst ick KET Negati ve Not Available In-Office Order Internal Use Only DO Not Attach Compendium DO Not Attach Compendium, Do Not Delete/merge, [facility] 08/26/2021 11:19:16 08/26/1908/26/2021 urina lysis , dipst ick SG 1.010 Not Available In-Office Order Internal Use Only DO Not Attach Compendium DO Not Attach Compendium, Do Not Delete/merge, [facility] 08/26/2021 11:19:16 08/26/1908/26/2021 urina lysis , dipst ick BLO Negati ve Not Available In-Office Order Internal Use Only DO Not Attach Compendium DO Not Attach Compendium, Do Not Delete/merge, 08/26/2021 11:19:16 08/26/1908/26/2021 urina lysis , dipst ick pH 7.0 Not Available In-Office Order Internal Use Only DO Not Attach Compendium DO Not Attach Compendium, Do Not Delete/merge, 08/26/2021 11:19:16 08/26/1908/26/2021 urina lysis , dipst ick PRO Negati ve Not Available In-Office Order Internal Use Only DO Not Attach Compendium DO Not Attach Compendium, Do Not Delete/merge, [id number] 08/26/2021 11:19:16 08/26/1908/26/2021 urina lysis , dipst ick URO 0.2 E.U. / dl Not Available In-Office Order Internal Use Only DO Not Attach Compendium DO Not Attach Compendium, Do Not Delete/merge, [id number] 08/26/2021 11:19:16 08/26/1908/26/2021 urina lysis , dipst ick NIT negati ve Not Available In-Office Order Internal Use Only DO Not Attach Compendium DO Not Attach Compendium, Do Not Delete/merge, [id number] 08/26/2021 11:19:16 08/26/1908/26/2021 urina lysis , dipst ick LEO Negati ve Not Available In-Office Order Internal Use Only DO Not Attach Compendium DO Not Attach Compendium, Do Not Delete/merge, [facility] 08/26/2021 11:19:16 08/23/1908/24/2022 URINE CULTU RE specimen description URINE Not Available [facility] (Centralized Electronic Ordering - All Locations) Patient Can Go To The Location Of Their Choice, 08/25/2022 07:49:54 08/23/1908/24/2022 URINE CULTU RE special requests NONE Not Available [facility] (Centralized Electronic Ordering - All Locations) Patient Can Go To The Location Of Their Choice, 08/25/2022 07:49:54 08/23/1908/25/2022 URINE CULTU RE culture Mixed bacter ial talia, indica tive of urogen ital contam inatio n. Not Available [facility] (Centralized Electronic Ordering - All Locations) Patient Can Go To The Location Of Their Choice, [id number] 08/25/2022 07:49:54 08/23/1908/25/2022 URINE CULTU RE report status FINAL 2022 Not Available [facility] (Centralized Electronic Ordering - All Locations) Patient Can Go To The Location Of Their Choice, [id number] 08/25/2022 07:49:54 08/23/1908/23/2022 [facility]TOL OGY results Santos nt Name: APONT E-PER MASOOD HOLDER nt : 1960 (Age: 61) Lab Acces patti #: [id number] Colle ction Date: 2022 Acces patti Date: 2022 Sign Out Date: 2022 Tissu e Sourc e: 1: THINP REP DOT COMPLIANCE SPECIALIST PAP TEST, CERVI TERESA: Final Diagn osis: NEGAT JUSTICE FOR INTRA EPITH ELIAL LESIO N OR MALIG DELGADO . Satis facto ry for evalu ation . Endoc ervic al/tr ansfo rmati on zone prese nt. Clini teresa Histo ry: Date of Last Menst rual Perio d: 08-26 Menst rual Histo ry: not avail able Contr acept justice Histo ry: not avail able Ancil lexi Testi ng: HPV (ASCU S) Case image d by the ThinP rep Imagi ng Syste m with amy hurtado rescr tuniigor g or mora w. Perfo rmed at [facility] ate Refer ence Labor atory depar tment of Cytol ogy, [address] [place] Clini teresa Histo ry (othe r): Z01.4 19 LPS 08-26 NEGAT JUSTICE ROUTI NE SCREE N Phone #: [phone], On-Ca ll Patho logis t: [id number] Not Available [facility] (Centralized Electronic Ordering - All Locations) Patient Can Go To The Location Of Their Choice, [id number] 08/29/2022 14:10:19 02/21/20 23 08/23/2022 urina lysis , dipst ick, auto glucose negati ve Not Available In-Office Order Internal Use Only DO Not Attach Compendium DO Not Attach Compendium, Do Not Delete/merge, [facility] 08/23/2022 09:52:23 08/23/19 23 08/23/2022 urina lysis , dipst ick, auto JAMMIE negati ve Not Available In-Office Order Internal Use Only DO Not Attach Compendium DO Not Attach Compendium, Do Not Delete/merge, [facility] 08/23/2022 09:52:23 08/23/19 23 08/23/2022 urina lysis , dipst ick, auto ket negati ve Not Available In-Office Order Internal Use Only DO Not Attach Compendium DO Not Attach Compendium, Do Not Delete/merge, [facility] 08/23/2022 09:52:23 08/23/1908/23/2022 urina lysis , dipst ick, auto SG 1.010 Not Available In-Office Order Internal Use Only DO Not Attach Compendium DO Not Attach Compendium, Do Not Delete/merge, [facility] 08/23/2022 09:52:23 08/23/1908/23/2022 urina lysis , dipst ick, auto BLO NEGATI VE Not Available In-Office Order Internal Use Only DO Not Attach Compendium DO Not Attach Compendium, Do Not Delete/merge, [facility] 08/23/2022 09:52:23 08/23/1908/23/2022 urina lysis , dipst ick, auto PH 6.0 Not Available In-Office Order Internal Use Only DO Not Attach Compendium DO Not Attach Compendium, Do Not Delete/merge, [facility] 08/23/2022 09:52:23 08/23/19 23 08/23/2022 urina lysis , dipst ick, auto PRO NEGATI VE Not Available In-Office Order Internal Use Only DO Not Attach Compendium DO Not Attach Compendium, Do Not Delete/merge, [facility] 08/23/2022 09:52:23 08/23/19 23 08/23/2022 urina lysis , dipst ick, auto URO 0.2 E.U. /dl Not Available In-Office Order Internal Use Only DO Not Attach Compendium DO Not Attach Compendium, Do Not Delete/merge, [id number] 08/23/2022 09:52:23 08/23/1908/23/2022 urina lysis , dipst ick, auto NIT NEGATI VE Not Available In-Office Order Internal Use Only DO Not Attach Compendium DO Not Attach Compendium, Do Not Delete/merge, [facility] 08/23/2022 09:52:23 08/23/19 23 08/23/2022 urina lysis , dipst ick, auto LEO NEGATI VE Not Available In-Office Order Internal Use Only DO Not Attach Compendium DO Not Attach Compendium, Do Not Delete/merge, [facility] 08/23/2022 09:52:23 08/23/19 23 08/23/2022 fecal occul t blood , stool Occult Blood negati ve Not Available In-Office Order Internal Use Only DO Not Attach Compendium DO Not Attach Compendium, Do Not Delete/merge, [facility] 08/23/2022 09:26:46 08/22/19 24 08/22/2023 URINE CULTU RE special requests NONE Not Available [facility] (Centralized Electronic Ordering - All Locations) Patient Can Go To The Location Of Their Choice, 08/24/2023 07:19:48 08/22/19 24 08/23/2023 URINE CULTU RE specimen description URINE Not Available [facility] (Centralized Electronic Ordering - All Locations) Patient Can Go To The Location Of Their Choice, 08/24/2023 07:19:48 08/22/19 24 08/24/2023 URINE CULTU RE culture NO GROWTH Not Available [facility] (Centralized Electronic Ordering - All Locations) Patient Can Go To The Location Of Their Choice, 08/24/2023 07:19:48 08/22/19 24 08/24/2023 URINE CULTU RE report status FINAL 2023 Not Available [facility] (Centralized Electronic Ordering - All Locations) Patient Can Go To The Location Of Their Choice, 08/24/2023 07:19:48 08/22/19 24 08/22/2023 [facility] results Patie nt Name: MASOOD TREVINO nt : 1960 (Age: 62) Lab Acces patti #: [id number] Colle ction Date: 2023 Acces patti Date: 2023 Sign Out Date: 2023 Tissu e Sourc e: 1: THINP REP DOT COMPLIANCE SPECIALIST PAP TEST, CERVI TERESA: Final Diagn osis: NEGAT JUSTICE FOR INTRA EPITH ELIAL LESIO N OR MALIG DELGADO . Atrop hy. Satis facto ry for evalu ation . Clini teresa Histo ry: Date of Last Menst rual Perio d: not avail able Menst rual Histo ry: Post- menop ausal Contr acept justice Histo ry: not avail able Ancil lexi Testi ng: HPV (ASCU S) Case image d by the ThinP rep Imagi ng Syste m with amy ferreira or mora tinoco. Perfo rmed at [facility] ate Refer ence Labor atory depar tment of Cytol ogy, [address] [place] Clini teresa Histo ry (othe r): Z01.4 19, ROUTI NE SCREE N, LPS 08/23 NEG Phone #: [phone], On-Ca ll Patho logis t: [id number] Not Available [facility] (Centralized Electronic Ordering - All Locations) Patient Can Go To The Location Of Their Choice, [id number] 08/25/2023 11:49:02 08/22/1908/22/2023 wet mount , vagin al Clue Cells negati ve Not Available In-Office Order Internal Use Only DO Not Attach Compendium DO Not Attach Compendium, Do Not Delete/merge, [id number] 08/22/2023 12:15:18 08/22/19 24 08/22/2023 wet mount , vagin al Trichomonas negati ve Not Available In-Office Order Internal Use Only DO Not Attach Compendium DO Not Attach Compendium, Do Not Delete/merge, [id number] 08/22/2023 12:15:18 08/22/19 24 08/22/2023 wet mount , vagin al Hyphae positi ve Not Available In-Office Order Internal Use Only DO Not Attach Compendium DO Not Attach Compendium, Do Not Delete/merge, 08/22/2023 12:15:18 08/22/19 24 08/22/2023 wet mount , vagin al atrophic epithelium positi ve Not Available In-Office Order Internal Use Only DO Not Attach Compendium DO Not Attach Compendium, Do Not Delete/merge, 08/22/2023 12:15:18 08/22/19 24 08/22/2023 fecal occul t blood , stool Occult Blood negati ve Not Available In-Office Order Internal Use Only DO Not Attach Compendium DO Not Attach Compendium, Do Not Delete/merge, 08/22/2023 11:45:11 08/22/19 24 08/22/2023 urina lysis , dipst ick GLU Negati ve Not Available In-Office Order Internal Use Only DO Not Attach Compendium DO Not Attach Compendium, Do Not Delete/merge, 08/22/2023 12:03:19 08/22/19 24 08/22/2023 urina lysis , dipst ick JAMMIE Negati ve Not Available In-Office Order Internal Use Only DO Not Attach Compendium DO Not Attach Compendium, Do Not Delete/merge, 08/22/2023 12:03:19 08/22/19 24 08/22/2023 urina lysis , dipst ick KET Negati ve Not Available In-Office Order Internal Use Only DO Not Attach Compendium DO Not Attach Compendium, Do Not Delete/merge, 08/22/2023 12:03:19 08/22/19 24 08/22/2023 urina lysis , dipst ick SG 1.010 Not Available In-Office Order Internal Use Only DO Not Attach Compendium DO Not Attach Compendium, Do Not Delete/merge, 08/22/2023 12:03:19 08/22/19 24 08/22/2023 urina lysis , dipst ick BLO Negati ve Not Available In-Office Order Internal Use Only DO Not Attach Compendium DO Not Attach Compendium, Do Not Delete/merge, 08/22/2023 12:03:19 08/22/19 24 08/22/2023 urina lysis , dipst ick pH 5.0 Not Available In-Office Order Internal Use Only DO Not Attach Compendium DO Not Attach Compendium, Do Not Delete/merge, [id number] 08/22/2023 12:03:08/22/19 24 08/22/2023 urina lysis , dipst ick PRO Negati ve Not Available In-Office Order Internal Use Only DO Not Attach Compendium DO Not Attach Compendium, Do Not Delete/merge, [facility] 08/22/2023 12:03:19 08/22/19 24 08/22/2023 urina lysis , dipst ick URO 0.2 E.U. / dl Not Available In-Office Order Internal Use Only DO Not Attach Compendium DO Not Attach Compendium, Do Not Delete/merge, [facility] 08/22/2023 12:03:08/22/19 24 08/22/2023 urina lysis , dipst ick NIT negati ve Not Available In-Office Order Internal Use Only DO Not Attach Compendium DO Not Attach Compendium, Do Not Delete/merge, [facility] 08/22/2023 12:03:08/22/19 24 08/22/2023 urina lysis , dipst ick LEO Negati ve Not Available In-Office Order Internal Use Only DO Not Attach Compendium DO Not Attach Compendium, Do Not Delete/merge, [facility] 08/22/2023 12:03:19 10/02/19 25 10/02/2024 URINE CULTU REANDREA NE urine culture, routine Final report Not Available [facility] ([facility]) [address] [place], [address], 10/02/2024 20:06:06 10/02/19 25 10/02/2024 URINE CULTU REAFSANEHI NE result 1 COMMEN T Mixed uroge nital talia 25,00 0-50, 000 colon y formi ng units per mL Not Available [facility] ([facility]) [address] [facility], [place], [address], 10/02/2024 20:06:06 10/02/19 25 10/04/2024 IGP, RFX APTIM A HPV ASCU diagnosis: Rhett lazo NEGAT JUSTICE FOR INTRA EPITH ELIAL LESIO N OR NINA NATARAJAN . CELLU MAICO PAUL ES ASSOC IATED WITH ATROP HY ARE PRESE NT. Not Available [facility] ([facility]) [address] [place], [address], 10/04/2024 14:16:10 10/02/19 25 10/04/2024 IGP, RFX APTIM A HPV ASCU specimen adequacy: Rhett t Satis facto ry for evalu ation . Endoc ervic al compo nent may not be disti nguis hed in cases of atrop hy. Not Available [facility] ([facility]) [address] [place], [address], 10/04/2024 14:16:10 10/02/19 25 10/04/2024 IGP, RFX APTIM A HPV ASCU clinician provided ICD10: Rhett lazo Z01.4 19 R30.0 Not Available [facility] ([facility]) [address] [place], [address], 10/04/2024 14:16:10 10/02/19 25 10/04/2024 IGP, RFX APTIM A HPV ASCU performed by: Rhett watson, Cytoviolet lazo (ASCP ) Not Available [facility] ([facility]) [address] [place], [address], 10/04/2024 14:16:10 10/02/19 25 10/04/2024 IGP, RFX APTIM A HPV ASCU . . Not Available [facility] ([facility]) [address] [place], [address], 10/04/2024 14:16:10 10/02/19 25 10/04/2024 IGP, RFX APTIM A HPV ASCU note: Commen t The Pap smear is a scree yesenia test desig skip to aid in the detec tion of lilian ligna nt and malig nant condi tions of the uteri ne cervi x. It is not a diagn ostic proce dure and shoul d not be used as the sole means of detec ting cervi teresa cance r. Both false -posi tive and false -nega tive repor ts do occur . Not Available [facility] ([facility]) [address] [facility], [place], [address], 10/04/2024 14:16:10 10/02/19 25 10/04/2024 IGP, RFX APTIM A HPV ASCU test methodology: Commen t This liqui d based ThinP rep(R ) pap test was scree skip with the use of an image guide rubén dick. Not Available [facility] ([facility]) [address] [facility], [place], [address], 10/04/2024 14:16:10 10/02/19 25 10/04/2024 IGP, RFX APTIM A HPV ASCU . Commen t The HPV DNA refle x crite paola were not met with this speci men resul t there fore, no HPV testi ng was perfo rmed. Not Available [facility] ([facility]) [address] [facility], [place], [address], 10/04/2024 14:16:10 10/02/1910/01/2024 hemog lobin , gastr ointe dalton l, stool Occult Blood negati ve Not Available In-Office Order Internal Use Only DO Not Attach Compendium DO Not Attach Compendium, Do Not Delete/merge, 10/01/2024 13:15:43 10/02/1910/01/2024 urina lysis , dipst ick GLU Negati ve Not Available In-Office Order Internal Use Only DO Not Attach Compendium DO Not Attach Compendium, Do Not Delete/merge, 10/01/2024 13:22:43 10/02/1910/01/2024 urina lysis , dipst ick JAMMIE Negati ve Not Available In-Office Order Internal Use Only DO Not Attach Compendium DO Not Attach Compendium, Do Not Delete/merge, 10/01/2024 13:22:43 10/02/19 25 10/01/2024 urina lysis , dipst ick KET Negati ve Not Available In-Office Order Internal Use Only DO Not Attach Compendium DO Not Attach Compendium, Do Not Delete/merge, 10/01/2024 13:22:43 10/02/19 25 10/01/2024 urina lysis , dipst ick SG 1.015 Not Available In-Office Order Internal Use Only DO Not Attach Compendium DO Not Attach Compendium, Do Not Delete/merge, 10/01/2024 13:22:43 10/02/19 25 10/01/2024 urina lysis , dipst ick BLO Negati ve Not Available In-Office Order Internal Use Only DO Not Attach Compendium DO Not Attach Compendium, Do Not Delete/merge, [id number] 10/01/2024 13:22:43 10/02/19 25 10/01/2024 urina lysis , dipst ick pH 6.0 Not Available In-Office Order Internal Use Only DO Not Attach Compendium DO Not Attach Compendium, Do Not Delete/merge, 10/01/2024 13:22:43 10/02/19 25 10/01/2024 urina lysis , dipst ick PRO Negati ve Not Available In-Office Order Internal Use Only DO Not Attach Compendium DO Not Attach Compendium, Do Not Delete/merge, [id number] 10/01/2024 13:22:43 10/02/19 25 10/01/2024 urina lysis , dipst ick URO 0.2 E.U. / dl Not Available In-Office Order Internal Use Only DO Not Attach Compendium DO Not Attach Compendium, Do Not Delete/merge, 10/01/2024 13:22:43 10/02/19 25 10/01/2024 urina lysis , dipst ick NIT negati ve Not Available In-Office Order Internal Use Only DO Not Attach Compendium DO Not Attach Compendium, Do Not Delete/merge, [id number] 10/01/2024 13:22:43 10/02/19 25 10/01/2024 urina lysis , dipst ick LEO Negati ve Not Available In-Office Order Internal Use Only DO Not Attach Compendium DO Not Attach Compendium, Do Not Delete/merge, [id number] 10/01/2024 13:22:43 06/22/20 21 06/21/2021 US, pelvi s, trans abdom inal + trans vagin al No observ ation record ed. [email or web address] [address] [place], [address], 06/23/2021 07:51:14 12/30/19 23 12/29/2022 MAMMO , scree yesenia, digit al, bilat eral No observ ation record ed. [facility] [address], [address], 12/30/2022 08:38:58 09/01/19 24 09/01/2023 US, pelvi s, trans abdom inal + trans vagin al No observ ation record ed. [facility] ([facility]) [address] [place], [address], 09/05/2023 11:32:41 01/09/20 24 01/09/2024 MAMMO , scree yesenia, digit al, bilat eral No observ ation record ed. [facility] [address] [facility] [address], [facility] [place], [address], 01/10/2024 08:47:32 Result Notes None recorded. Problems Name Problem SNOMED Code Status Onset Date Resolution Date Notes Provider Name and Address Organization Details Recorded Time Candidal vulvovaginitis 03597517 Active Sejal Polk MD [address] [facility], [place], [address], [place] [facility], 6 10:54:13 Postmenopausal bleeding 77790258 Active Sejal Polk MD [address], [place], [address], [place] [facility], 6 10:54:13 Osteoporosis 39765544 Active Sejal Polk MD [address], [place], [address], [place] [facility], 6 10:54:13 Mammography abnormal 512789886 Active Sejal Polk MD [address], [place], [address], [place] [facility], 6 10:54:13 Increased frequency of urination 551735008 Active Sejal Polk MD [address], [place], [address], [place] [facility], 6 10:54:13 Pain in pelvis 87500562 Active Sejal Polk MD [address], [place], [address], [place] [facility], 6 10:54:13 Menopausal syndrome 278055872 Active Sejal Polk MD [address], [place], [address], [place] [facility], 6 10:54:13 Oligoovulatory dysfunctional uterine bleeding 555033227 Active Sejal Polk MD [address], [place], [address], [place] [facility], 6 10:54:13 Atrophic vulvovaginitis 00320949 Active Sejal Polk MD [address], [place], [address], [place] [facility], 6 10:54:13 Asthma 530471791 Active 2017 Pat alaniz, [place] - [facility], 8 14:16:07 Lichen sclerosus et atrophicus Active 2020 Sejal Polk MD [address], [place], [address], [place] [facility], 1 10:38:29 Pelvic congestion syndrome 95303822 Active 2020 Sejal Polk MD [address], [place], [address], [place] - [facility], 1 13:49:09 Migraine 21707565 Active 2020 Izabel alaniz [place] - [facility], 1 15:22:24 Uterine prolapse 31697425 Active 2021 Elizabeth alaniz [place] - [facility], 2 11:17:25 Chronic constipation 194699370 Active 2021 Sejal Polk MD [address], [place], [address], [place] - [facility], 2 11:43:01 Fibromyalgia 786683025 Active 2022 Sejal Polk MD [address], [place], [address], [place] [facility], 3 10:25:50 Problem Notes None recorded. Procedures Surgical History Date Name Laterality Status Provider Name and Address Organization Details Recorded Time 01/09/20 24 Most Recent Mammogram completed Izabel Augustine in [facility], 09/23/2024 10:19:40 09/13/19 17 Other completed Izabel Augustine in [facility], 02/22/2017 10:30:11 03/26/20 14 Anesth abdominal wall surg completed Sejal Polk MD [address], [place], [address], [place] - [facility], 05/20/2014 10:12:20 02/12/20 14 Endometrial Biopsy completed Sejal Polk MD [address], [place], [address], [place] - [facility], 02/12/2014 12:24:16 07/03/19 14 Dilation and Curettage completed Pat Josiahleann TEN[place] - [facility], 02/09/2015 14:02:40 07/03/19 12 Breast Biopsy completed Sejal Polk MD [address], [place], [address], [place] - [facility], 05/20/2014 10:10:57 07/03/19 06 Anesth abdominal wall surg completed Sejal Polk MD [address], [place], [address], [place] [facility], 05/20/2014 10:12:54 07/03/19 06 Breast Implants completed Sejal Polk MD [address], [place], [address], [place] - [facility], 05/20/2014 10:12:34 07/03/19 05 Laparoscopy completed Izabel Augustine in [facility], 01/17/2013 11:38:27 07/03/18 92 Cholecystectomy completed Sejal Polk MD [address], [place], [address], [place] - [facility], 05/20/2014 10:10:57 07/03/18 88 Breast Biopsy completed Izabel Augustine in [facility], 01/17/2013 11:38:27 Imaging Results None recorded. Procedure Notes None recorded. Medical Equipment None Reported. Allergies Allergen ID Allergen Name Allergen Category Reaction Reaction Severity Criticality Documentation Date Start Date Code Code System Note Provider Name and Address Organization Details Recorded Time 46942 Product containin g penicilli n (product) medicatio n rash Not available Not available 02/09/2015 [id number] 8001 SNOMED JONA Padgett in [facility], 3 09:26:38 Substance with sulfonami de structure and antibacte rial mechanism of action (substanc e) medicatio n hives Not available Not available 02/22/2017 [id number] LEA Paiz Renetta alaniz [place] - [facility], 7 10:27:13 Medications Name Sig Start Date Stop Date Status Note LastModified by Organization Details LastModified Time buspirone 5 mg tablet TAKE 1 TABLET BY MOUTH TWICE DAILY 10/01 completed Not Available Not Available Not Available Vitamin B-2 100 mg tablet TAKE 1 TABLET BY MOUTH EVERY DAY active Not Available Not Available No t Available terconazole 0.4 % vaginal cream USE 1 APPLICATO R VAGINALLY EVERY NIGHT FOR 7 NIGHTS 05/27 completed Not Available Not Available Not Available venlafaxine ER 37.5 mg capsule,ext ended release 24 hr TAKE 1 CAPSULE BY MOUTH EVERYDAY AT BEDTIME active Not Available Not Available No t Available doxycycline hyclate 100 mg capsule TAKE 1 CAPSULE BY MOUTH TWICE DAILY WITH A GLASS OF WATER; AVOID DAIRY/TERESA CIUM FOR ONE HOUR BEFORE AND AFTER. DO NOT LAY DOWN FOR 1 HOUR AFTER TAKING 10/01 completed Not Available Not Available Not Available ketoconazol e 2 % shampoo APPLY SHAMPOO TO SCALP EVERY OTHER DAY FOR 2 WEEKS. THEN SHAMPOO 2-3 TIMES A WEEK FOR MAINTENAN CE active Not Available Not Available No t Available Evista 60 mg tablet Take 1 tablet every day by oral route. 08/19 completed Not Available Not Available Not Available polyethylen e glycol 3350 17 gram oral powder packet MIX 17 GRAMS WITH LIQUID AND TAKE BY MOUTH DAILY 10/01 completed Not Available Not Available Not Available oxybutynin chloride ER 10 mg tablet,exte nded release 24 hr Take 1 tablet every day by oral route. active Not Available Not Available No t Available cefpodoxime 100 mg tablet TAKE 1 TABLET BY MOUTH EVERY 12 HOURS FOR 10 DAYS 10/01 completed Not Available Not Available Not Available ibuprofen 800 mg tablet TAKE 1 TABLET BY MOUTH ONCE DAILY NEEDED FOR PAIN ,TAKE WITH FOOD active Not Available Not Available No t Available tizanidine 4 mg tablet TAKE 1 TABLET BY MOUTH EVERY DAY AT BEDTIME NEEDED FOR 30 DAYS active Not Available Not Available No t Available fluconazole 150 mg tablet TAKE 1 TABLET BY MOUTH ONCE A WEEK FOR 4 WEEKS 10/01 completed Not Available Not Available Not Available sucralfate 1 gram tablet TAKE 1 TABLET BY MOUTH TWICE DAILY active Not Available Not Available No t Available hydroquinon e 4 % topical cream APPLY CREAM TOPICALLY TO AFFECTED AREA NIGHTLY FOR 6 TO 8 WEEKS IN THE spring completed Not Available Not Available Not Available prednisone 20 mg tablet TAKE 3 TABLETS BY MOUTH EVERY DAY FOR 3 DAYS THEN 2X3 1X3 1/2X3 THEN STOP 10/01 completed Not Available Not Available Not Available rizatriptan 10 mg tablet TAKE 1 TABLET BY MOUTH NEEDED. CAN REPEAT AFTER 2 HOURS. MAX 2 TABLETS DAILY 08/23 completed Not Available Not Available Not Available Elmiron 100 mg capsule Take 1 capsule twice a day by oral route. active Not Available Not Available No t Available naproxen 250 mg tablet Take 1 tablet twice a day by oral route. active Not Available Not Available No t Available venlafaxine ER 150 mg capsule,ext ended release 24 hr TAKE 1 CAPSULE BY MOUTH EVERY DAY WITH FOOD active Not Available Not Available No t Available thiamine HCl (vitamin B1) 100 mg tablet TAKE 1 TABLET BY MOUTH DAILY active Not Available Not Available No t Available ciprofloxac in 500 mg tablet TAKE 1 TABLET BY MOUTH TWICE DAILY FOR 5 DAYS 10/01 completed Not Available Not Available Not Available omeprazole 40 mg capsule,del ayed release TAKE 1 CAPSULE BY MOUTH DAILY 0.5 TO 1 HOUR BEFORE BREAKFAST active Not Available Not Available No t Available minoxidil 2.5 mg tablet TAKE 1/2 (ONE-HALF ) TABLET BY MOUTH ONCE DAILY 10/01 completed Not Available Not Available Not Available triamcinolo ne acetonide 0.1 % topical cream APPLY TOPICALLY TO THE AFFECTED AREA EVERY DAY active Not Available Not Available No t Available lamotrigine 25 mg tablet TAKE 1 TABLET BY MOUTH ONCE DAILY IN THE MORNING 08/23 completed Not Available Not Available Not Available levothyroxi ne 75 mcg tablet TAKE 1 TABLET BY MOUTH ONCE DAILY IN THE MORNING active Not Available Not Available No t Available hydrocortis one 2.5 % topical cream with perineal applicator APPLY 1 APPLICATI ON 4 TIMES A DAY BY TOPICAL ROUTE NEEDED FOR 30 DAYS. active Not Available Not Available No t Available methenamine hippurate 1 gram tablet TAKE 1 TABLET BY MOUTH EVERY DAY WITH VITAMIN C OR CRANBERRY active Not Available Not Available No t Available lorazepam 0.5 mg tablet TAKE 1 TABLET BY MOUTH AT BEDTIME NEEDED FOR ANXIETY active Not Available Not Available No t Available trazodone 100 mg tablet TAKE 3 TABLETS BY MOUTH AT BEDTIME NEEDED FOR INSOMNIA active Not Available Not Available No t Available dicyclomine 20 mg tablet TAKE 1 TABLET BY MOUTH 4 TIMES DAILY NEEDED 10/01 completed Not Available Not Available Not Available baclofen 10 mg tablet TAKE 1 TABLET BY MOUTH TWICE DAILY NEEDED FOR MUSCLE SPASM 10/01 completed Not Available Not Available Not Available paroxetine 30 mg tablet TAKE 1 TABLET BY MOUTH DAILY 08/23 completed Not Available Not Available Not Available pantoprazol e 40 mg tablet,arline yed release TAKE 1 TABLET BY MOUTH ONCE DAILY 10/01 completed Not Available Not Available Not Available erythromyci n 5 mg/gram (0.5 %) eye ointment APPLY ONE CENTIMETE R OF OINTMENT TO EACH EYE FOUR TIMES A DAY DIRECTED active Not Available Not Available No t Available trazodone 150 mg tablet 05/27 completed Not Available Not Available Not Available fluoxetine 20 mg tablet TAKE 1/2 (ONE-HALF ) TABLET BY MOUTH ONCE DAILY FOR 7 DAYS THEN 1 TABLET ONCE DAILY THEREAFTE R active Not Available Not Available No t Available triamcinolo ne acetonide 0.1 % topical ointment APPLY TO AFFECTED AREA TWICE A DAY NEEDED FOR 90 DAYS active Not Available Not Available No t Available progesteron e micronized 200 mg capsule Take 1 capsule every day by oral route. 02/22 completed Not Available Not Available Not Available hydroxyzine HCl 25 mg tablet TAKE 1 TABLET BY MOUTH THREE TIMES DAILY NEEDED FOR ANXIETY 10/01 completed Not Available Not Available Not Available levothyroxi ne 200 mcg tablet Take 1 tablet every day by oral route. active Not Available Not Available No t Available mirtazapine 15 mg tablet TAKE 1 TABLET BY MOUTH AT BEDTIME 10/01 completed Not Available Not Available Not Available gabapentin 100 mg capsule TAKE 1 CAPSULE BY MOUTH AT BEDTIME 10/01 completed Not Available Not Available Not Available estradiol 0.5 mg tablet Take 1 tablet every day by oral route. 08/26 completed Not Available Not Available Not Available nystatin 100,000 unit/gram topical powder APPLY TO THE AFFECTED AREA(S) BY TOPICAL ROUTE 2 TIMES PER DAY 10/01 completed Not Available Not Available Not Available levalbutero l 1.25 mg/3 mL solution for nebulizatio n INHALE 1 AMPULE VIA NEBULIZER EVERY 4 TO 6 HOURS NEEDED FOR ASTHMA active Not Available Not Available No t Available lorazepam 1 mg tablet TAKE 1 TABLET BY MOUTH AT BEDTIME NEEDED FOR ANXIETY active Not Available Not Available No t Available azelastine 137 mcg (0.1 %) nasal spray SPRAY 1 TO 2 PUFFS INTO EACH NOSTRIL TWO TIMES A DAY active Not Available Not Available No t Available epinephrine 0.3 mg/0.3 mL injection, auto-inject or USE DIRECTED FOR ANAPHYLAX IS THEN CALL 911 active Not Available Not Available No t Available polyethylen e glycol 3350 17 gram/dose oral powder MIX 17 GRAMS OF POWDER IN 8 OUNCES OF LIQUID AND DRINK ONCE DAILY active Not Available Not Available No t Available estradiol 0.01% (0.1 mg/gram) vaginal cream INSERT 1/2 GRAM EVERY DAY BY VAGINALLY FOR 85 DAYS. active Not Available Not Available No t Available zolpidem 10 mg tablet TAKE 1 TABLET BY MOUTH EVERY DAY AT BEDTIME NEEDED FOR SLEEP active Not Available Not Available No t Available methylpredn isolone 4 mg tablets in a dose pack TAKE SIX TABLETS FOR 1 DAY, THEN FIVE TABLETS FOR 1 DAY, THEN FOUR TABLETS FOR 1 DAY,THEN THREE TABLETS FOR 1 DAY, THEN TWO TABLETS FOR 1 DA 08/23 completed Not Available Not Available Not Available albuterol sulfate HFA 90 mcg/actuati on aerosol inhaler 1 INHALATIO N EVERY 4 HOURS NEEDED FOR FOR SHORTNESS OF BREATH OR WHEEZING active Not Available Not Available No t Available metronidazo le 0.75 % topical gel APPLY TO RASH TWICE DAILY UNTIL CLEAR 10/01 completed Not Available Not Available Not Available doxycycline hyclate 100 mg tablet TAKE 1 TABLET BY MOUTH EVERY DAY active Not Available Not Available No t Available phentermine 37.5 mg capsule TAKE ONE CAPSULE BY MOUTH EVERY DAY. 30 MINUTES BEFORE OR 1-2 HOURS AFTER BREAKFAST active Not Available Not Available No t Available methylpheni date ER 36 mg tablet,exte nded release 24 hr TAKE 1 TABLET BY MOUTH DAILY active Not Available Not Available No t Available diazepam 5 mg tablet TAKE 1 TABLET BY MOUTH AT BEDTIME NEEDED FOR ANXIETY 08/23 completed Not Available Not Available Not Available progesteron e micronized 100 mg capsule one tab po at hs daily 08/23 completed Not Available Not Available Not Available Botox 100 unit injection MD TO INJECT 50 UNITS INTRADERM ALLY INTO EACH AXILLA FOR HYPERHIDR OSIS EVERY 3-6 MONTHS NEEDED active Not Available Not Available No t Available cyclobenzap rine 5 mg tablet TAKE 1 TO 2 TABLETS BY MOUTH THREE TIMES DAILY NEEDED 10/01 completed Not Available Not Available Not Available Premarin 0.625 mg/gram vaginal cream use one half gram vaginally at hs 02/23 completed Not Available Not Available Not Available Premarin 0.625 mg tablet one tablet orally by mouth daily 02/22 completed Not Available Not Available Not Available bupropion HCl XL 300 mg 24 hr tablet, extended release TAKE 1 TABLET BY MOUTH EVERY MORNING 10/01 completed Not Available Not Available Not Available bupropion HCl XL 150 mg 24 hr tablet, extended release TAKE 1 TABLET BY MOUTH EVERY MORNING 10/01 completed Not Available Not Available Not Available escitalopra m 5 mg tablet TAKE 1 TABLET BY MOUTH EVERY MORNING 30 DAYS 08/23 completed Not Available Not Available Not Available nitrofurant oin monohydrate /macrocryst als 100 mg capsule Take 1 capsule every 12 hours by oral route for 7 days. 05/27 completed Not Available Not Available Not Available Cymbalta 30 mg capsule,del ayed release Take 1 capsule twice a day by oral route. active Not Available Not Available No t Available Constulose 10 gram/15 mL oral solution TAKE 15 ML BY MOUTH TWICE DAILY 10/01 completed Not Available Not Available Not Available levalbutero l HFA 45 mcg/actuati on aerosol inhaler INHALE 2 PUFFS INTO LUNGS EVERY 4 HOURS NEEDED active Not Available Not Available No t Available pregabalin 50 mg capsule TAKE 1 CAPSULE BY MOUTH TWICE DAILY active Not Available Not Available No t Available magnesium active Not Available Not Kelly ilable Not Available digestive enzymes active Not Available Not Available Not Available zinc 02/22 completed Not Available Not Available Not Available Fish Oil active Not Available Not Avai lable Not Available lamotrigine 02/22 completed Not Available Not Available Not Available Tylenol 02/22 completed Not Available Not Available Not Available Calcium 500 + D 05/27 completed Not Available Not Available Not Available inhaler, for use with solution active Not Available Not Available Not Available aripiprazol e 2 mg tablet TAKE 1 TABLET BY MOUTH ONCE DAILY 08/23 completed Not Available Not Available Not Available fenofibrate nanocrystal lized 48 mg tablet TAKE 1 TABLET BY MOUTH DAILY active Not Available Not Available No t Available budesonide- formoterol HFA 160 mcg-4.5 mcg/actuati on aerosol inhaler INHALE 2 PUFFS BY MOUTH TWICE DAILY active Not Available Not Available No t Available levocetiriz ine 5 mg tablet TAKE 1 TABLET BY MOUTH ONCE DAILY 10/01 completed Not Available Not Available Not Available lubiproston e 8 mcg capsule TAKE ONE CAPSULE BY MOUTH TWICE A DAY 08/23 completed Not Available Not Available Not Available Botox 200 unit injection INJECT 190 UNITS ONCE EVERY 90 DAYS active Not Available Not Available No t Available levothyroxi ne 25 mcg capsule Take 1 capsule every day by oral route. 08/23 completed Not Available Not Available Not Available Prolia 60 mg/mL subcutaneou s syringe Inject by subcutane ous route. active Not Available Not Available No t Available Probiotic active Not Available Not Kelly ilable Not Available Allergy Relief (fexofenadi ne) 180 mg tablet TAKE 1 TABLET BY MOUTH TWICE DAILY active Not Available Not Available No t Available Lynne Allergy active Not Available Not Available Not Available QNASL 80 mcg/actuati on nasal aerosol spray USE 2 SPRAY(S) IN EACH NOSTRIL TWICE DAILY active Not Available Not Available No t Available mirabegron ER 25 mg tablet,exte nded release 24 hr TAKE 1 TABLET BY MOUTH ONCE DAILY active Not Available Not Available No t Available Caltrate with Vitamin D3 600 mg-20 mcg (800 unit) tablet Take 1 tablet twice a day by oral route. 2019 active Not Available Not Available Not Avai lable Linzess 145 mcg capsule TAKE 1 CAPSULE BY MOUTH ONCE DAILY FOR 90 DAYS 10/01 completed Not Available Not Available Not Available Linzess 290 mcg capsule TAKE 1 CAPSULE BY MOUTH DAILY active Not Available Not Available No t Available Gynazole-1 2 % vaginal cream INSERT ONE APPLICATO RFUL VAGINALLY EVERY DAY FOR 1 DAY 08/23 completed Not Available Not Available Not Available PreviDent 5000 Booster Plus 1.1 % dental paste USE AT NIGHT. FLOSS FIRST THEN BRUSH WITH PRODUCT FOR 2 MINUTES, SPIT EXCESS, DO NOT RINSE, EAT OR DRINK FOR AT LEAST 30 MINUTES active Not Available Not Available No t Available Multi Vitamin active Not Available Not Available Not Available Asmanex HFA 200 mcg/actuati on aerosol inhaler INHALE 2 PUFFS TWICE DAILY active Not Available Not Available No t Available Laxative (sennosides ) 02/23 completed Not Available Not Available Not Available Qvar RediHaler 80 mcg/actuati on HFA breath activated aerosol INHALE 2 PUFFS BY MOUTH TWICE DAILY active Not Available Not Available No t Available Qbrexza 2.4 % towelette APPLY TOPICALLY ONCE DAILY active Not Available Not Available No t Available Emgality Pen 120 mg/mL subcutaneou s pen injector INSJECT 1 ML UNDER THE SKIN EVERY 30 DAYS active Not Available Not Available No t Available Ajovy 225 mg/1.5 mL subcutaneou s auto-inject or ADMINISTE R 1.5 ML UNDER THE SKIN MONTHLY 10/01 completed Not Available Not Available Not Available BinaxNOW COVID-19 Ag Self Test kit Use as Directed on the Package active Not Available Not Available No t Available benfotiamin e 10/01 completed 37.5 Not Available Not Available Not Available Qulipta 60 mg tablet TAKE 1 TABLET BY MOUTH ONCE DAILY FOR 30 DAYS 10/01 completed Not Available Not Available Not Available Qulipta 30 mg tablet TAKE 1 TABLET BY MOUTH ONCE DAILY FOR 30 DAYS 10/01 completed Not Available Not Available Not Available Qulipta 10 mg tablet TAKE 1 TABLET BY MOUTH ONCE DAILY FOR 30 DAYS 10/01 completed Not Available Not Available Not Available Tezspire 210 mg/1.91 mL (110 mg/mL) subcutaneou s syringe 08/23 completed Not Available Not Available Not Available Vitals Date Recorded Body height Body mass index (BMI) Body weight Heart rate Body temperature Systolic And Diastolic Provider Name and Address Organization Details Last Updated DateTime 4 156.21 cm 27.2 kg/m2 60232.2 g 81 /min 97 [degF] 139/77 mm[Hg] maryellen Augustine in [facility], 4 11:46:17 Date Recorded Body height Body mass index (BMI) Body weight Body temperature Heart rate Systolic And Diastolic Provider Name and Address Organization Details Last Updated DateTime 3 156.21 cm 26.2 kg/m2 57415.2 4 g 97.4 [degF] 90 /min 131/72 mm[Hg] Izabel Augustine in [facility], 3 09:27:00 Date Recorded Body height Body mass index (BMI) Body weight Body temperature Heart rate Systolic And Diastolic Provider Name and Address Organization Details Last Updated DateTime 2 156.21 cm 27.5 kg/m2 34081.6 7 g 97.3 [degF] 76 /min 135/78 mm[Hg] Elizabeth Augustine in [facility], 2 11:12:19 Date Recorded Body height Body mass index (BMI) Body weight Body temperature Heart rate Systolic And Diastolic Provider Name and Address Organization Details Last Updated DateTime 5 157.48 cm 24.4 kg/m2 82332.5 g 97.3 [degF] 82 /min 121/76 mm[Hg] Izabel Augustine in [facility], 5 13:07:57 Date Recorded Body height Body mass index (BMI) Body weight Body temperature Heart rate Systolic And Diastolic Provider Name and Address Organization Details Last Updated DateTime 1 156.21 cm 27.3 kg/m2 65537.3 6 g 97.2 [degF] 89 /min 141/80 mm[Hg] Izabel Augustine in [facility], 1 15:20:47 Social History Question Answer Notes LastModified by Organizat ion Details LastModified Time Tobacco Smoking Status Never Smoker Not Available [facility] 05/05/2020 03:19:40 What Is Your Level Of Caffeine Consumption? Moderate [id number] Information not available 05/05/2020 In The 14 Days Before Symptom Onset, Have You Had Close Contact With A Laboratory-confir med COVID-19 While That Case Was Ill? No Information not available 06/17/2021 In The 14 Days Before Symptom Onset, Have You Had Close Contact With A Person Who Is Under Investigation For COVID-19 While That Person Was Ill? No Information not available 06/17/2021 Have You Been To An Area Known To Be High Risk For COVID-19? No Information not available 06/17/2021 What Type Of Diet Are You Following? REGULAR [id number] Information not available 05/05/2020 Which Illicit Or Recreational Drugs Have You Used? No [id number] Information not available 05/05/2020 Do You Reside In Or Have You Traveled To An Area Where Ebola Virus Transmission Is Active? No [id number] Information not available 05/05/2020 Education Post Graduate Information not available 01/17/2013 What Is The Highest Grade Or Level Of School You Have Completed Or The Highest Degree You Have Received? [id number] Information not available 06/17/2021 Who Is Your Employer? [employer] Information not available 08/23/2022 How Many Days In The Past Year Have You Had A Heavy Drinking Consumption (4+ Female, 5+ Male)? 0 Information no t available 02/23/2016 Are There Any Guns Present In Your Home? No Information not available 06/17/2021 High Number Of Sexual Partners No Information not available 02/23/2016 To Which Gender Do You Self-identify? Female Information not available 02/23/2016 Marital Status Is A [employer]. [employer]. 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 10/01/2024 Information not available 10/01/2024 What Is Your Relationship Status? Information not available 06/17/2021 Are You Sexually Active? Yes [id number] Information not available 05/05/2020 How Much Tobacco Do You Smoke? No [id number] Information not available 05/05/2020 General Stress Level Medium Information not available 04/26/2019 How Many Years Have You Smoked Tobacco? 0 [id number] Information not available 05/05/2020 Have You Recently (within The Last 12 Weeks, Or During A Current ) Traveled To Or Lived In A Zika-affected Area? No Information not available 04/26/2019 Sex: Female Functional Status Question Answer Note LastModified by Organizat ion Details LastModified Time Do you use any illicit or recreational drugs? No Information not available 06/17/2021 Do you or have you ever used any other forms of tobacco or nicotine? No Information not available 06/17/2021 What is your level of alcohol consumption? None [id number] Information not available 05/05/2020 Do you or have you ever used smokeless tobacco? Never used smokeless tobacco [id number] Information not available 05/05/2020 Are you currently employed? 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 Never used electronic cigarettes [id number] Information not available 05/05/2020 What is your exercise level? Occasional [id number] Information not available 05/05/2020 Mental Status Question Answer Note LastModified by Organization D etails LastModified Time Do you feel stressed (tense, restless, nervous, or anxious, or unable to sleep at night)? [id number] Information not available 06/17/2021 Family History Relationship Description Onset Age of this Age Resolved Age Notes LastModified by Organization Details LastModified Time Sister Disorder of thyroid gland 43 cancer (previ ously record ed as Thyroi d Proble ms) x2 was 50 Not available 07/13/2015 10:22:50 Sister Malignant tumor of cervix 56 Not available 07/03 10:22:50 Sister Malignant tumor of colon 59 [email or web address] Not available 2024 13:14:48 Father Malignant neoplasm of lung previo usly record ed as Lung Cancer Not available 07/13/2015 10:22:50 Sister Malignant neoplasm of bone 66 Not available 07/03 10:22:50 Medical History Condition Response Anesthesia complications N High Blood Pressure N [facility] N Autoimmune Condition N Lung Disease N Depression Y Defects or Inherited Disease N History of Ovarian Cancer N BRCA testing in past N Anxiety Disorder Y Arthritis N Infertility N History of Cancer N Endometriosis N Kidney or Bladder Problems Y Thyroid Problems Y GI Problems Y Anemia Y History of Breast Cancer N ALECIA exposure N Osteopenia N Psychiatric Illness N Diabetes N Headaches or Migraines Y Asthma Y Hepatitis N Heart Disease N Hypertension N Osteoporosis N Gynecological History Statement/Question Response If Post Menopausal, Age at Menopause 53 Flow Light Menses Monthly N Duration of Flow (days) Age at Menarche 12 Current Control Method None Most Recent Mammogram 01/09/2024 Age at First Child 29 Obstetrics History GPAL:G 2 P 2 0 0 2 Type Value Full Term 2 Living 2 Total 2 Immunizations Vaccine Type Date Status Note Provider Nam e and Address Organization Details Recorded Time influenza, unspecified formulation 2 completed JONA Padgett in [facility], 01/17/2013 11:38:27 Influenza, split virus, trivalent, preservative 3 completed JONA Padgett in [facility], 02/04/2014 09:37:02 Influenza, split virus, quadrivalent, preservative 4 completed JONA Villanueva in [facility], 05/09/2014 11:31:58 Influenza, split virus, trivalent, preservative 5 completed JONA Padgett in [facility], 07/13/2015 10:15:41 Influenza, split virus, quadrivalent, preservative 6 completed JONA Padgett in [facility], 02/22/2017 10:28:44 Influenza, split virus, quadrivalent, preservative 7 completed JONA Padgett in [facility], 02/23/2018 09:18:12 influenza, unspecified formulation 8 completed Pat Weinstein null, [place] [facility], 06/14/2018 14:15:52 Influenza, split virus, quadrivalent, preservative 9 completed Izabel Meczywor null, [place] - [facility], 04/26/2019 14:26:43 Influenza, split virus, quadrivalent, preservative 0 completed Izabel Meczywor null, [place] - [facility], 08/19/2020 10:11:18 Influenza, split virus, quadrivalent, preservative 1 completed Izabel Meczywor null, [place] [facility], 06/17/2021 15:21:38 COVID-19, mRNA, LNP-S, PF, 30 mcg/0.3 mL dose 1 completed Elizabeth Lindsey null, [place] - [facility], 08/26/2021 11:12:31 COVID-19, mRNA, LNP-S, PF, 30 mcg/0.3 mL dose 1 completed Elizabeth Lindsey null, [place] - [facility], 08/26/2021 11:12:48 COVID-19, mRNA, LNP-S, PF, 30 mcg/0.3 mL dose 2 completed Elizabeth Lindsey null, [place] - [facility], 08/26/2021 11:13:02 Influenza, split virus, quadrivalent, preservative 1 completed Elizabeth Lindsey null, [place] - [facility] in [facility], 08/26/2021 11:13:20 influenza, unspecified formulation 2 completed Izabel Meczywor null, [place] - [facility], 08/23/2022 09:31:51 Past Encounters Encounter ID Performer Location Encounter Start Date Encounter Closed Date Diagnosis/Indication Diagnosis SNOMED-CT Code Diagnosis ICD10 Code Diagnosis Note [id number] MD SEJAL Sams MD [address] [facility] [address] [place] [address] 01/17/2013 11:11:12 01/17/2013 15:25:10 [id number] MD SEJAL Sams MD [address] [facility] [address] [place] [address] 02/04/2014 09:28:59 02/04/2014 10:24:08 Specialized medical examination [id number] Screening for malignant neoplasm of rectum 417425295 Screening mammography 08871727 Candidal vulvovaginitis 61998572 Postmenopa usal bleeding [id number] MD SEJAL Sams MD [address] [facility] [place] [address] 02/11/2014 14:04:20 02/13/2014 11:25:10 Postmenopausal bleeding 75442109 Candidal vulvovaginitis 13253038 [id number] MD SEJAL Sams MD [address] [facility] [address] 02/19/2014 10:21:36 02/19/2014 11:39:47 Osteoporosis 60758502 [id number] MD SEJAL Sams MD [address] [facility] [address] [place] [address] 05/09/2014 11:18:27 05/09/2014 13:46:06 Postmenopausal bleeding 47976064 Candidal vulvovaginitis 70918437 [id number] MD SEJAL Sams MD [address] [facility] [address] 05/15/2014 10:57:48 05/15/2014 13:50:28 Postmenopausal bleeding 36197903 [id number] MD SEJAL Sams MD [address] [facility] [address] 05/20/2014 09:47:07 05/20/2014 10:30:19 Postmenopausal bleeding 60207231 [id number] MD SEJAL Sams MD [address] [facility] [place] [address] 06/02/2014 08:39:43 06/02/2014 09:59:40 Candidal vulvovaginitis 95593156 Postoperat justice follow-up visit 877605017 Postmenopa usal bleeding 75583474 [id number] MD SEJAL Sams MD [address] [place] [address],[facility] [place] [address] 02/09/2015 13:40:41 02/09/2015 16:24:05 Specialized medical examination 43452017 Screening for malignant neoplasm of rectum 568192982 Screening mammography 40074898 Increased frequency of urination 592083126 Atrophic vulvovaginitis 27832099 [id number] MD SEJAL Sams MD [address] [place] [address],[facility] [place] [address] 07/13/2015 10:02:22 07/13/2015 11:58:46 Osteoporosis 99435293 M81.0 Menopausal syndrome 1237 45783 N95.9 Candidal vulvovaginitis 53916715 B37.3 [id number] MD SEJAL Sams MD [address] [place] [address],[facility] [place] [address] 02/23/2016 15:16:26 02/23/2016 16:15:41 Menopausal syndrome 259931467 N95.9 Specialize d medical examination 38229922 Z01.419 Screening for malignant neoplasm of rectum 755938448 Z12.12 Screening mammography 24 612402 Z12.31 [id number] MD SEJAL Sams MD [address] [place] [address],[facility] [place] [address] 02/22/2017 10:06:26 02/22/2017 11:25:44 Specialized medical examination 32644121 Z01.419 Screening for malignant neoplasm of rectum 536960322 Z12.12 Screening mammography 24 743287 Z12.31 Atrophic vulvovaginitis 92454503 N95.2 [id number] MD SEJAL Sams MD [address] [place] [address],[facility] [place] [address] 02/23/2018 09:10:55 02/23/2018 10:57:44 Atrophic vulvovaginitis 40500955 N95.2 Specialize d medical examination 84714532 Z01.419 Screening for malignant neoplasm of rectum 219565198 Z12.12 Screening mammography 24 022477 Z12.31 [id number] MD SEJAL Sams MD [address] [place] [address] [facility] [facility] [address] 03/15/2018 14:09:04 03/16/2018 08:15:01 Osteoporosis 82374517 M81.0 Increased frequency of urination 853068377 R35.0 [id number] MD SEJAL Sams MD [address] [place], [place] [address] [address] 06/14/2018 14:06:21 06/15/2018 09:23:58 Acute lower urinary tract infection 562579231 R30.0 Candidal vulvovaginitis 69395021 B37.3 Menopausal syndrome 1237 95562 N95.1 Left lower quadrant pain 909760521 R10.32 Loss of appetite 6157741 6 R63.0 [id number] MD SEJAL Sams MD [address] [place] [address] [place] [address] 04/26/2019 14:13:50 04/26/2019 14:55:46 Menopausal syndrome 284414792 N95.1 Specialize d medical examination 45037333 Z01.419 Screening for malignant neoplasm of rectum 094098524 Z12.12 Screening mammography 24 320866 Z12.31 Acute lowe r urinary tract infection 152043093 R30.0 Atrophic vulvovaginitis 67394563 N95.2 [id number] MD SEJAL Sams MD [address] [place], [place] [address] [address] 06/24/2019 13:44:31 06/24/2019 15:30:14 Acute lower urinary tract infection 265825156 R30.0 Candidal vulvovaginitis 53133201 B37.3 [id number] MD SEJAL Sams MD [address] [place] [address] [place] [address] 12/06/2019 14:08:36 12/06/2019 15:05:42 Acute lower urinary tract infection 402827070 R30.0 Candidal vulvovaginitis 20088726 B37.3 [id number] MD SEJAL Sams MD [address] [place] [address] [place] [address] 12/16/2019 10:32:50 12/16/2019 12:51:00 Acute lower urinary tract infection 689256620 R30.0 Candidal vulvovaginitis 37008945 B37.3 Candidiasis of skin 4988 3006 B37.2 [id number] MD SEJAL Sams MD [address] [place], [place] [address]E [place] [address] 12/20/2019 11:29:49 12/20/2019 13:44:43 Osteoporosis 04638736 M81.0 [id number] MD SEJAL Sams MD [address] [place], [place] [address] [address] 08/19/2020 10:05:54 08/19/2020 12:11:56 Specialized medical examination 44852790 Z01.419 Screening for malignant neoplasm of rectum 570622897 Z12.12 Screening mammography 24 025422 Z12.31 Atrophic vulvovaginitis 92548462 N95.2 Mastodynia of bilateral breasts 1949662556 4844215 N64.4 Lichen scl erosus et atrophicus 59369090 L90.0 Increased frequency of urination 851931693 R35.0 Pain in pelvis 49558816 R10.2 Pruritus of vagina 34161 003 L29.3 [id number] MD SEJAL Sams MD [address] [place], [place] [address] [place] [address] 08/31/2020 13:19:48 08/31/2020 14:06:01 Pelvic congestion syndrome 53801722 N94.89 [id number] MD SEJAL Sams MD [address] [place] [address] [place] [address] 06/17/2021 15:15:25 06/21/2021 08:40:36 Acute lower urinary tract infection 616681790 R30.0 Pain in pelvis 77242862 R10.2 Atrophic vulvovaginitis 58017405 N95.2 [id number] MD SEJAL Sams MD [address] [place] [address] [place] [address] 08/26/2021 11:00:50 08/26/2021 13:34:31 Specialized medical examination 63686583 Z01.419 Screening for malignant neoplasm of rectum 895268116 Z12.12 Screening mammography 24 347563 Z12.31 Acute lowe r urinary tract infection 963445907 R30.0 Candidal vulvovaginitis 74820840 B37.3 Increased frequency of urination 597682986 R35.0 Pain in pelvis 15845862 R10.2 Uterine prolapse 3288943 5 N81.4 Migraine 46028265 G43.90 9 Chronic constipation 236 477954 K59.09 [id number] MD SEJAL Sams MD [address] [place] [address] [place] [address] 08/23/2022 09:19:43 08/23/2022 11:01:09 Specialized medical examination 88113646 Z01.419 Screening for malignant neoplasm of rectum 371249756 Z12.12 Screening mammography 24 033904 Z12.31 Dysuria 95063282 R30.0 Pelvic con gestion syndrome 05829407 N94.89 Chronic constipation 236 532557 K59.09 Osteoporosis 81739113 M8 1.0 Fibromyalgia 362929874 M 79.7 [id number] MD SEJAL Sasm MD [address] [place] [address] [place] [address] 08/22/2023 11:34:28 08/22/2023 12:59:50 Specialized medical examination 34017090 Z01.419 Screening for malignant neoplasm of rectum 309502061 Z12.12 Screening mammography 24 835375 Z12.31 Acute lowe r urinary tract infection 924075208 R30.0 Candidal vulvovaginitis 01538762 B37.31 Mastodynia of bilateral breasts 6228575219 7540068 N64.4 Pain in pelvis 05010746 R10.2 Genital li romero sclerosus 164643380 L90.0 [id number] MD SEJAL Sams MD [address] [place] [address] [address] [place] [address] 10/01/2024 12:58:49 10/01/2024 14:42:45 Atrophic vulvovaginitis 26926802 N95.2 Specialize d medical examination 28416741 Z01.419 Screening for malignant neoplasm of rectum 058112289 Z12.12 Screening mammography 24 445789 Z12.31 Acute lowe r urinary tract infection 448063683 R30.0 Genital li romero sclerosus 953210077 L90.0 External hemorrhoids 239 73272 K64.4 Constipation 08091838 K5 9.00 Increased frequency of urination 603713479 R35.0 Health Concerns Section Related Observation LastModified by Organization Detai ls LastModified Time None Recorded Concern Status LastModified by Organization Details LastModified Time None Recorded Advance Directives Directive None Recorded Payers Insurance Date Sequence Insurance Name Policy Number Policy Crespo Covered Member ID Crespo Member ID Guarantor Name 10/01/2024 1 [facility] (O) [id number] Cheyanne Salazar [id number] Cheyanne Bond 02/23/2016 1 [place]IC OPTION Faizan Spence [id number] Cheyanne Bond 08/23/2022 1 [facility] () Rufino Martell [id number] Cheyanne Bond 01/18/2018 1 [facility] Faizan Martell [id number] Cheyanne Bond 07/13/2015 1 [employer] [facility] Faizan Martell [id number] Cheyanne Bond 10/02/2024 1 [place] Rufino Du [id number] Cheyanne Bond 08/18/2023 1 [place] Rufino Spence [id number] Cheyanne Bond 10/01/2024 1 [facility] [place] - DOS PRIOR TO 2024 (PPO) Rufino Du [id number] Cheyanne Bond 08/22/2023 1 [facility] (POS) Rufino santos [id number] Cheyanne Bond OBGyn Episode No OBEpisode recorded.
--- OUTSIDE RECORDS SUMMARY | 2025-01-28 13:30 | XMS_ITS | Encounter Summary ---
Author Organization [facility] Address [address] [place] [address] Phone Care Team Providers Care Dye Stand Loader Name Role Phone Shira Pitt MD Primary Care Provider [phone] Pam Hummel MD Primary Care Provider [phone] Chris Huff MD Primary Care Provider [phone] Wendi Augustin MD Primary Care Provider [phone] Unknown, Unknown Primary Care Provider Chris Houser MD Primary Care Provider [phone] Encounter Details Date Type Department Care Team (Latest Contact Info) Description 06/30/2017 Transcribe Orders [facility] [address] [place] [address] Vasu See MD [address] [place] [address], [address] [place] [address] [email or web address] Nonintractable headache, unspecified chronicity pattern, unspecified headache type (Primary Dx); Memory loss Social History Tobacco Use Types Packs/Day Years Used Date Smoking Tobacco: Never Assessed Comments Unknown Sex and Gender Information Value Date Recorded Sex Assigned at Not on file Legal Sex Female 9:47 PM EDT Gender Identity Female 06/20/2020 3:58 PM EST Sexual Orientation Straight 06/20/2020 3 :58 PM EST documented as of this encounter Plan of Treatment Upcoming Encounters Date Type Department Care Team ( Contact Info) Description 02/10/2025 12:10 PM EDT Office Visit [facility] [address] [place] [address] [place] [address] [address] 02/19/2025 11:00 AM EDT Nurse Only [facility] [address] [place] [address] BrandtVasu DO [address] [place] [address] [email or web address] documented as of this encounter Results * (ABNORMAL) Vitamin B12 (06/30/2017 3:36 PM EST) VITAMIN B12 1,405(H) 243 - 894 pg/mL [facility] Blood 06/30/2017 3:36 PM EST 06/30/2017 5:35 PM EST us Vasu See MD LAB BLOOD ORDERABLES Final R esult [address] [address] * Sedimentation rate (ESR) (06/30/2017 3:36 PM EST) ESR 4 0 - 30 mm/h [facility] Blood 06/30/2017 3:36 PM EST 06/30/2017 5:35 PM EST us Vasu See MD LAB BLOOD ORDERABLES Final R esult [address] [address] * TSH (06/30/2017 3:36 PM EST) TSH 3.54 0.27 - 4.20 uIU/mL [facility] Blood 06/30/2017 3:36 PM EST 06/30/2017 5:35 PM EST us Vasu See MD LAB BLOOD ORDERABLES Final R esult Performing Organization Address [facility] Co de Phone Number [address] [address] * CBC (06/30/2017 3:36 PM EST) WBC 4.88 3.40 - 11.20 K/uL [facility] RBC 4.22 3.80 - 4.80 M/uL [facility] HGB 13.0 12.0 - 15.0 g/dL [facility] HCT 39.1 36.0 - 46.0 % [facility] PLT 232 130 - 400 K/uL [facility] MCV 92.7 79.0 - 98.0 fL [facility] MCH 30.8 27.0 - 34.8 pg [facility] MCHC 33.2 31.5 - 36.0 g/dL [facility] RDW 12.4 10.8 - 14.6 % [facility] MPV 10.4 9.4 - 12.4 fl [facility] NRBC 0.00 /100 WBCs [facility] ABSOLUTE NRBC 0.00 K/uL [facility] Blood 06/30/2017 3:36 PM EST 06/30/2017 5:35 PM EST us Vasu See MD LAB BLOOD ORDERABLES Final R esult Performing Organization Address City/[facility]/ZIP Co de Phone Number [address] [address] documented in this encounter Visit Diagnoses Diagnosis Nonintractable headache, unspecified chronicity pattern, unspecified headache type- Primary Memory loss documented in this encounter Care Teams Dye Stand Loader Relationship Specialty Start Date End Date Shira Pitt MD [email or web address] PCP - General Family Medicine 06/30/17 9 Pam Hummel MD [address] [place] [address] [email or web address] PCP - General Internal Medicine 03/22/19 12/26/19 Chris Huff MD [address] [place] [address] [place] [address] PCP - General Internal Medicine 12/27/19 06/21/20 Wendi Augustin MD [address] [address] [email or web address] PCP - General 06/22/20 06/21/21 Unknown, Unknown, PCP - General 06/22/21 08/24/21 Chris Huff MD [address] [place] [address] [place] [address] PCP - General Internal Medicine 08/25/21 documented as of this encounter Additional Source Comments The information contained in this document represents components of the legal health record. It is not the complete legal health record.[facility]
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
--- OUTSIDE RECORDS SUMMARY | 2025-01-28 13:30 | XMS_ITS | Clinical Summary ---
Author Organization [facility] Address [address] [place] [address] Care Team Providers Care Outsole Beveler Name Role Phone Ellie Vicente MD Primary Care Provider [phone] Allergies No known active allergies Medications Medication Sig Dispensed Refills Start Date End Date Status DULoxetine (CYMBALTA) 20 MG capsule Take 20 mg by mouth daily. 0 Active pantoprazole (PROTONIX) 40 MG tablet Take 40 mg by mouth daily as needed. 0 Active Calcium Carbonate-Vitamin D (CALCIUM 600 + D PO) Take 1 tablet by mouth daily. 0 Active Multiple Vitamins-Minerals (MULTIVITAMIN PO) Take 2 capsules by mouth daily. 0 Active MAGNESIUM CITRATE PO Take 225 mg by mouth daily. 0 Active Cholecalciferol (VITAMIN D-3) 5000 UNITS TABS Take 1 capsule by mouth daily. 0 Active naproxen (NAPROSYN) 250 MG tablet Take 250 mg by mouth daily as needed. 0 Active fexofenadine (CONSUELO) 180 MG tablet Take 180 mg by mouth daily. 0 Active diphenhydrAMINE (BENADRYL) 25 MG tablet Take 25 mg by mouth daily as needed for itching. 0 Active Active Problems Problem Noted Date Diagnosed Date Anemia 06/02/2014 Family History Medical History Relation Name Comments Hypertension Brother Cancer Father GI problems Father Hypertension Mother Kidney disease Mother Stroke Mother Cancer Sister 1 Diabetes Sister 1 Hypertension Sister 1 Diabetes Sister 2 Hypertension Sister 2 Relation Name Status Comments Brother Alive Father Mother Sister 1 Alive Sister 2 Alive Social History Tobacco Use Types Packs/Day Years Used Date Smoking Tobacco: Never Alcohol Use Standard Drinks/Week Comments No 0 (1 standard drink = 0.6 oz pur e alcohol) Sex and Gender Information Value Date Recorded Sex Assigned at Not on file Gender Identity Not on file Sexual Orientation Not on file Last Filed Vital Signs Vital Sign Reading Time Taken Comments Blood Pressure 104/69 04/04/2014 1:09 PM EDT Pulse 85 04/04/2014 1:09 PM EDT Temperature 37.1 C (98.8 F) 04/04/2014 1:09 PM EDT Respiratory Rate 16 04/04/2014 1:09 PM EDT Oxygen Saturation 100% 04/04/2014 1:09 PM EDT Inhaled Oxygen Concentration - - Weight 59.4 kg (131 lb) 04/04/2014 1:09 PM EDT Height 160 cm (5' 3 ) 04/04/2014 1:09 PM EDT Body Mass Index 23.21 04/04/2014 1:09 PM EDT Plan of Treatment Health Maintenance Due Date Last Done Comments Hepatitis C Screening 1960 COVID-19 Vaccine (#1) 04/21/1961 Depression Screening 1972 Preventative Health Evaluation 1978 DTap / Tdap / Td (1 - Tdap) 10/21/1979 Cervical Cancer Screening (P ap Smear) 1981 Colon Cancer Screening (Colonoscopy) 2005 Breast Cancer Screening (Mammogram) 2010 Shingrix-Zoster Vaccine (1 of 2) 2010 Influenza Vaccine (#1) 2025 Pneumococcal Vaccine (1 of 1 - PCV) 2025 RSV Adult > 60+ Yrs or Pregn ant (1 - 1-dose 75+ series) 10/21/2035 Hepatitis B Vaccines Aged Out No long er eligible based on patient's age to complete this topic Pneumococcal Vaccine Aged Out No long er eligible based on patient's age to complete this topic RSV Ped < 20 months Aged Out No longe r eligible based on patient's age to complete this topic Care Teams Outsole Beveler Relationship Specialty Start Date End Date Ellie Vicente MD PCP - General Family Medicine 04/03/14
--- OUTSIDE RECORDS SUMMARY | 2025-01-28 13:31 | XMS_ITS | Clinical Summary ---
Author Organization [facility] Address [address] [place] [address] Care Team Providers Care Soil Sampler Name Role Phone Unavailable Primary Care Provider Unavailabl e Social History Tobacco Use Types Packs/Day Years Used Date Smoking Tobacco: Never Assessed Comments Unknown Sex and Gender Information Value Date Recorded Sex Assigned at Not on file Legal Sex Female 6:27 PM EST Gender Identity Not on file Sexual Orientation Not on file Plan of Treatment Health Maintenance Due Date Last Done Comments Hepatitis C Virus Screening 1960 HIV Screening 1973 DTaP/Tdap/Td Vaccines (1 - Tdap) 10/21/1979 Pneumococcal Vaccines 50+ (1 of 1 - PCV) 2010 Zoster (Shingles) Vaccine (1 of 2) 2010 COVID-19 Vaccine ( - 2023-2 5 season) 2024 RSV Vaccine 60 years and old er and Patients (1 - 1-dose 75+ series) 10/21/2035 Hepatitis B Vaccines Aged Out No long er eligible based on patient's age to complete this topic
== END 2025-01-28 13:51 | disposition home or self-care (01) ==
LOC: HO.HMCH 12:46
PROVIDERS: PCP Internal Medicine; Visit Provider Internal Medicine
DX: J45.30 Mild persistent asthma, uncomplicated (principal); J30.9 Allergic rhinitis, unspecified; E03.9 Hypothyroidism, unspecified; M81.0 Age-related osteoporosis without current pathological fracture; M79.7 Fibromyalgia; M54.6 Pain in thoracic spine; H92.03 Otalgia, bilateral; G89.29 Other chronic pain; J31.2 Chronic pharyngitis; G62.9 Polyneuropathy, unspecified; K58.1 Irritable bowel syndrome with constipation; G47.00 Insomnia, unspecified; F98.8 Other specified behavioral and emotional disorders with onset usually occurring in childhood and adolescence; F41.9 Anxiety disorder, unspecified; F33.9 Major depressive disorder, recurrent, unspecified